=== PATIENT | male | born 1995 | race Caucasian/White ===

== ENCOUNTER 2016-11-26 03:08 | Inpatient (IN) | payer OTHER ==
--- NOTE | 2016-11-26 03:20 | HP ---
COWS - Scale Resting Pulse: 2= [place] 101-120 Sweatin=Flushed/Facial Moisture Restless Observation: 5= Unable to Sit Still Pupil Size: 1= Pupils >than Normal Bone or Joint Aches: 4=Acute Joint/Muscle Pain Runny Nose/ Eye Tearin= Runny Nose/Eyes GI Upset > 30mins: 1= Stomach Cramp Tremor Observation: 2= Slight Tremor Visible Yawning Observation: 1= 1-2x During Session Anxiety or Irritability: 2=Irritable/Anxious Goose Flesh Skin: 0=Smooth Skin COWS Score: 22 CIWA Score - CIWA Score Nausea/Vomitin Muscle Tremors: 2 Anxiety: 4-Mod. Anxious/Guarded Agitation: 4-Moderately Restless Paroxysmal Sweats: 1-Minimal Palms Moist Orientation: 1-Uncertain about Date Tacttile Disturbances: 0-None Auditory Disturbances: 0-None Visual Disturbances: 0-None Headache: 1-Very Mild CIWA-Ar Total Score: 15 Admission ROS BHS - HPI Chief Complaint: C/O OPIOID DEPENDENCE SEEKING DETOX TXMENT. Allergies/Adverse Reactions: Allergies Allergy/AdvReac Type Severity Reaction Status Date / Time No Known Allergies Allergy Verified 11/26/16 03:13 History of Present Illness: 21 Y.O. MALE WITH OPIOID AND BENZO DEPENDENCE ADMITTED FOR DETOX TXMENT. HE IS KNOWN TO [facility]. SELF REFERRED. REPORTS LONGEST CLEAN TIME 3 MONTHS. Exam Limitations: No Limitations - Ebola screening Have you traveled outside of the country in the last 21 days: No Have you had contact with anyone from an Ebola affected area: No Have you been sick,other than usual withdrawal symptoms: No Do you have a fever: No - Review of Systems Constitutional: Chills, Loss of Appetite, Malaise, Night Sweats EENT: reports: Nose Congestion Respiratory: reports: No Symptoms reported Cardiac: reports: No Symptoms Reported GI: reports: Diarrhea, Poor Appetite, Poor Fluid Intake : reports: No Symptoms Reported Musculoskeletal: reports: Back Pain, Joint Pain Integumentary: reports: Other (RESOLVING L EYE ECCHYMOSIS) Neuro: reports: No Symptoms reported Endocrine: reports: No Symptoms Reported Hematology: reports: No Symptoms Reported Psychiatric: reports: Anxious, Depressed Other Systems: Reviewed and Negative Patient History - Patient Medical History Hx Anemia: No Hx Asthma: No (CYSTIC FIBROSIS) Hx Chronic Obstructive Pulmonary Disease (COPD): No Hx Cancer: No Hx Cardiac Disorders: No Hx Congestive Heart Failure: No Hx Hypertension: No Hx Hypercholesterolemia: No Hx Pacemaker: No HX Cerebrovascular Accident: No Hx Seizures: No Hx Dementia: No Hx Diabetes: No Hx Gastrointestinal Disorders: Yes (acid reflux) Hx Genitourinary Disorders: No Hx Sexually Transmitted Disorders: No Hx Renal Disease (ESRD): No Hx Thyroid Disease: No Hx Human Immunodeficiency Virus (HIV): No Hx Hepatitis C: No Hx Depression: Yes (AND ANXIETY) Hx Suicide Attempt: No Hx Bipolar Disorder: No Hx Schizophrenia: No Other Medical History: DENIES - Patient Surgical History Past Surgical History: Yes Hx Neurologic Surgery: No Hx Cataract Extraction: No Hx Cardiac Surgery: No Hx Lung Surgery: Yes (left pneumothorax at age 17) Hx Breast Surgery: No Hx Breast Biopsy: No Hx Abdominal Surgery: Yes (HERNIA REPAIR) Hx Appendectomy: No Hx Cholecystectomy: No Hx Genitourinary Surgery: No Hx Section: No Hx Orthopedic Surgery: No Anesthesia Reaction: No - PPD History Previous Implant?: Yes Documented Results: Negative w/proof Implanted On Prior [facility] Admission?: Yes Date: 10/21/15 Results: 0 mm PPD to be Administered?: Yes - Smoking Cessation Smoking history: Never smoked Have you smoked in the past 12 months: No Hx Chewing Tobacco Use: No Initiated information on smoking cessation: No - Substance & Tx. History Hx Alcohol Use: No Hx Substance Use: Yes Substance Use Type: Heroin, Tranquilizers (BZO) Hx Substance Use Treatment: Yes ([facility]) - Substances Abused HEROIN Route: Injection Frequency: Daily Amount used: 20 BAGS Age of first use: 19 Date of Last Use: 11/26/16 KLONOPINS Route: Oral Frequency: Daily Amount used: 4 MG Age of first use: 15 Date of Last Use: 11/26/16 Family Disease History - Family Disease History Family Disease History: [place]: Grandparent (PROSTATE), Mother (alive,BREAST), Other : Sister (cystic fibrosis) Admission Physical Exam [facility] - Physical General Appearance: Yes: Appropriately Dressed, Thin, Anxious HEENTM: Yes: EOMI, Normocephalic, RUT, Pharynx Normal, Rhinorrhea, Other ( RESOLVING ECCHYMOSIS TO R EYE.) Respiratory: Yes: Chest Non-Tender, Lungs Clear, Normal Breath Sounds, No Respiratory Distress, No Accessory Muscle Use Neck: Yes: No masses,lesions,Nodules, Supple, Trachea in good position Breast: Yes: Breast Exam Deferred Cardiology: Yes: Regular Rhythm, S1, S2, Tachycardia Abdominal: Yes: Normal Bowel Sounds, Non Tender, Flat, Soft Genitourinary: Yes: Within Normal Limits Back: Yes: Normal Inspection Musculoskeletal: Yes: full range of Motion, Gait Steady Extremities: Yes: Normal Capillary Refill, Normal Range of Motion, Non-Tender, Tremors Neurological: Yes: software trainer II-XII NML intact, Fully Oriented, Alert, Motor Strength 5/5 Integumentary: Yes: Normal Color, Dry, Warm, Track Hebert Lymphatic: Yes: Within Normal Limits - Diagnostic (1) Sedative, hypnotic or anxiolytic dependence with withdrawal, uncomplicated Current Visit: No Status: Acute (2) Cystic fibrosis Current Visit: No Status: Chronic (3) GERD (gastroesophageal reflux disease) Current Visit: No Status: Chronic (4) Opioid dependence with withdrawal Current Visit: Yes Status: Acute Cleared for Admission S - Detox or Rehab [facility] Level of Care: Medically Managed Detox Regimen/Protocol: Methadone/Valium S Breath Alcohol Content Breath Alcohol Content: 0 Vital Signs - Vital Signs Vital Signs Refused: No Temperature: 97.4 F Temperature Source: Oral Pulse Rate: 106 Respiratory Rate: 18 Blood Pressure: 104/66 BP Location: Left Arm Blood Pressure Position: Sitting - Height Height: 6 ft 1 in - Weight Weight: 61.235 kg Weight Measurement Method: Standing Scale Body Mass Index (BMI): 17.8 Urine Drug Screen - Test Device Lot Number: [id number] Expiration Date: 09/07/18 - Control Is Test Valid: Yes - Results Drug Screen Negative: No Urine Drug Screen Results: OPI-Opiates, BZO-Benzodiazepines, OXY-Oxycodone
[2016-11-26 03:27] VITALS: BMI 17.8
[2016-11-26] MEDS ORDERED: MAGNESIUM HYDROX 2400MG/30ML ORAL SUSPENSION 30 ML CUP PO PRN (03:53)
[2016-11-26] MEDS ORDERED: MENTHOL/PHENOL 1 EACH UD MM PRN (03:53)
[2016-11-26] MEDS ORDERED: guaiFENesin/D-METHORPHAN HB 10 ML UNIT-DOSE CUPS PO PRN (03:53)
[2016-11-26] MEDS ORDERED: MAG HYDROX/AL HYDROX/SIMETH 30 ML UNIT-DOSE CUP PO PRN (03:53)
[2016-11-26] MEDS ORDERED: diazePAM 5 MG TABLET PO ONE (03:53)
[2016-11-26] MEDS ORDERED: MAGNESIUM CITRATE 300 ML BOTTLE PO PRN (03:53)
[2016-11-26] MEDS ORDERED: NICOTINE POLACRILEX 2 MG GUM BC PRN (03:53)
[2016-11-26] MEDS ORDERED: P-EPHED 60MG/TRIPROLIDI 2.5MG TABLET PO PRN (03:53)
[2016-11-26] MEDS ORDERED: ACETAMINOPHEN 325 MG TABLET (FP) PO PRN (03:53)
[2016-11-26] MEDS ORDERED: LOPERAMIDE HCL 2 MG CAPSULE PO PRN (03:53)
[2016-11-26] MEDS ORDERED: METHADONE HCL 10 MG TABLET (FOR DETOX USE ONLY) PO ONE ×3 (03:53→23:00)
[2016-11-26] MEDS ORDERED: diphenhydrAMINE HCL 50 MG CAPSULE PO PRN (03:53)
[2016-11-26] MEDS ORDERED: ALBUTEROL SO4 6.7 GM HFA INHALER IH PRN (03:56)
[2016-11-26] MEDS ORDERED: PATIENT'S OWN MEDICATION (NON-FORMULARY) (Lipase/Protease/Amylase [Creon Dr 24,000 Units C PO SCH (04:00)
[2016-11-26] MEDS: diazePAM 5 MG TABLET PO SCH ×3 (07:27→22:11)
--- NOTE | 2016-11-26 07:42 | CONSULT ---
[facility] Psychiatric Consult - Data Date of interview: 11/26/16 Admission source: [facility] Identifying data: This is 21 yers old male with nop psychiatric hospitalization history intoxicated with Cannabis, Xanax/Klonopin, Heroin and Nicotine Substance Abuse History: - Smoking Cessation. Smoking history: Never smoked. Have you smoked in the past 12 months: No. Hx Chewing Tobacco Use: No. Initiated information on smoking cessation: No. - Substance & Tx. History. Hx Alcohol Use: No. Hx Substance Use: Yes. Substance Use Type: Heroin, Tranquilizers (BZO). Hx Substance Use Treatment: Yes ([facility]). - Substances Abused. HEROIN. Route: Injection. Frequency: Daily. Amount used: 20 BAGS. Age of first use: 19. Date of Last Use: 11/26/16. KLONOPINS. Route : Oral. Frequency: Daily. Amount used: 4 MG. Age of first use: 15. Date of Last Use: 11/26/16 Medical History: Cystic Fibrosis, GERD Psychiatric History: Patient reports history of anxiety, reports no medications taking prior to admission Physical/Sexual Abuse/Trauma History: Denies Additional Comment: Observation. Detox Unit Care [facility] Mental Status Exam - Mental Status Exam Alert and Oriented to: Person Cognitive Function: Fair Patient Appearance: Unkempt Mood: Sad Affect: Flat Patient Behavior: Sedated Speech Pattern: Delayed Voice Loudness: Moderately Soft/Quiet Thought Process: Circumstantial Thought Disorder: Being Controlled Hallucinations: Denies Suicidal Ideation: Denies Homicidal Ideation: Denies Insight/Judgement: Fair Sleep: Difficulty falling asleep Appetite: Weight loss Muscle strength/Tone: Moderate Hypotonicity Gait/Station: Shuffling Additional Comments: Observation. Detox Unit Care [facility] Psychiatric Findings - Problem List ([place] 1, 2,3) (1) Opioid dependence with withdrawal Current Visit: Yes Status: Acute (2) Cannabis dependence Current Visit: No Status: Acute (3) Heroin abuse Current Visit: No Status: Acute (4) Heroin dependence Current Visit: No Status: Acute (5) Sedative, hypnotic or anxiolytic dependence with withdrawal, uncomplicated Current Visit: No Status: Acute (6) Anxiety and depression Current Visit: No Status: Chronic (7) Benzodiazepine dependence Current Visit: No Status: Chronic (8) Cocaine dependence Current Visit: No Status: Chronic Qualifiers: Substance use status: uncomplicated Qualified Code(s): F14.20 - Cocaine dependence, uncomplicated (9) Drug-induced mood disorder Current Visit: No Status: Chronic - Initial Treatment Plan Initial Treatment Plan: Observation. Detox Unit Care [facility]
[2016-11-26 10:11] LABS: MCH 23.3 pg (25.7-33.7); MCHC 31.5 g/dl (32.0-35.9); MEAN CELL VOLUME 73.8 fl (80-96); MEAN PLT VOLUME 11.2 fl (7.5-11.1); PLATELET COUNT 143 K/MM3 (134-434); RDW 16.8 % (11.9-15.9); WHITE BLOOD COUNT 8.8 K/mm3 (4.0-10.0)
[2016-11-26] MEDS: BUDESONIDE/FORMETEROL FUMARATE 80/4.5 mcg INHALER IH SCH ×2 (10:16→23:13)
[2016-11-26] MEDS: PATIENT'S OWN MEDICATION (NON-FORMULARY) (Lipase/Protease/Amylase [Creon Dr 24,000 Units C PO SCH ×3 (10:16→17:28)
[2016-11-26] MEDS: PRENATAL VITAMINS W/ FOLIC ACID TABLET (FP) PO SCH (10:17)
[2016-11-26] MEDS: diazePAM 5 MG TABLET PO PRN ×4 (10:23→23:50)
[2016-11-26 10:39] LABS: ALBUMIN 3.4 g/dl (3.4-5.0); ALK PHOS 82 U/L (45-117); ANION GAP 8 (8-16); BILIRUBIN,TOTAL 0.5 mg/dL (0.2-1.0); CALCIUM 9.4 mg/dL (8.5-10.1); CO2 29 mmol/L (21-32); CREATININE 0.7 mg/dL (0.7-1.3); GLUCOSE,RANDOM 84 mg/dL (74-106); SGOT/AST 24 U/L (15-37); SGPT/ALT 23 U/L (12-78)
[2016-11-26] MEDS ORDERED: LIDOCAINE 5% TOPICAL PATCH TP ONE (10:40)
[2016-11-26 11:00] LABS: HIV 1 & 2 AB NEGATIVE; HIV 1 AGp24 NEGATIVE
--- NOTE | 2016-11-26 11:38 | PN ---
S CIWA - CIWA Score Nausea/Vomitin Muscle Tremors: 3 Anxiety: 3 Agitation: 3 Paroxysmal Sweats: 3 Orientation: 0-Oriented Tacttile Disturbances: 2-Mild Itch/Numbness/Burn Auditory Disturbances: 0-None Visual Disturbances: 0-None Headache: 1-Very Mild CIWA-Ar Total Score: 18 BHS COWS - Scale Resting Pulse: 1= [place] 81-100 Sweatin=Flushed/Facial Moisture Restless Observation: 1= Difficult to Sit Still Pupil Size: 1= Pupils >than Normal Bone or Joint Aches: 2= Severe Diffuse Aches Runny Nose/ Eye Tearin= Nasal Congestion GI Upset > 30mins: 1= Stomach Cramp Tremor Observation of Outstretched Hands: 2= Slight Tremor Visible Yawning Observation: 0= None Anxiety or Irritability: 2=Irritable/Anxious Goose Flesh Skin: 0=Smooth Skin COWS Score: 13 BHS Progress Note (SOAP) Subjective: interrupted sleep, sweats, shakes, , os ecchymosis Objective: 11/26/16 11:35 Vital Signs Temperature 97.9 F 11/26/16 10:00 Pulse Rate 86 11/26/16 10:00 Respiratory Rate 18 11/26/16 10:00 Blood Pressure 109/70 11/26/16 10:00 O2 Sat by Pulse Oximetry (%) Laboratory Tests 11/26/16 11/26/16 11/26/16 07:00 07:00 07:00 WBC 8.8 RBC 5.44 Hgb 12.7 Hct 40.2 MCV 73.8 L MCHC 31.5 L RDW 16.8 H D Plt Count 143 MPV 11.2 H Sodium 141 Potassium 3.9 Chloride 104 Carbon Dioxide 29 Anion Gap 8 BUN 12 Creatinine 0.7 D Creat Clearance w eGFR > 60 Random Glucose 84 Calcium 9.4 Total Bilirubin 0.5 AST 24 ALT 23 D Alkaline Phosphatase 82 Total Protein 8.0 Albumin 3.4 RPR Titer Nonreactive HIV 1&2 Antibody Screen HIV P24 Antigen 11/26/16 07:00 WBC RBC Hgb Hct MCV MCHC RDW Plt Count MPV Sodium Potassium Chloride Carbon Dioxide Anion Gap BUN Creatinine Creat Clearance w eGFR Random Glucose Calcium Total Bilirubin AST ALT Alkaline Phosphatase Total Protein Albumin RPR Titer HIV 1&2 Antibody Screen Negative HIV P24 Antigen Negative pt aox3 irritable ambulating rt forearm redness and warmth at site of iv injection 11/26/16 11:37 Assessment: 11/26/16 11:36 withdrawal sx;s 'lbp cystic fibrosis rt forearm cellulitis 11/26/16 11:37 Plan: cont. detox increase fluids lidocaine patch augmentin 875mg bid
[2016-11-26] MEDS ORDERED: AMOX TR/POT CLAV 875MG/125MG TABLETS (FP) PO ONE (12:13)
--- NOTE | 2016-11-26 14:23 | EKG ---
Test Reason : Blood Pressure : / mmHG Vent. Rate : 088 BPM Atrial Rate : 088 BPM P-R Int : 122 ms QRS Dur : 090 ms QT Int : 366 ms P-R-T Axes : 021 046 053 degrees QTc Int : 442 ms NORMAL SINUS RHYTHM WITH SINUS ARRHYTHMIA NORMAL ECG NO PREVIOUS ECGS AVAILABLE Confirmed by GT MARTINES MD ([id number]) on 11/26/2016 2:22:50 PM Referred By: Confirmed By:GT MARTINES MD
[2016-11-26] MEDS: AMOX TR/POT CLAV 875MG/125MG TABLETS (FP) PO SCH (17:26)
[2016-11-26] MEDS: [UNRECOGNIZED DRUG - OTHER] PO PRN ×2 (17:27→18:13)
[2016-11-26] MEDS: IBUPROFEN 400 MG TABLET (FP) PO PRN (19:59)
[2016-11-26] MEDS ORDERED: LIDOCAINE PATCH REMOVAL MC SCH (22:00)
[2016-11-26] MEDS: THIAMINE HCL 100 MG TABLET (FP) PO SCH (22:11)
[2016-11-26] MEDS: LIDOCAINE PATCH REMOVAL MC SCH (23:13)
[2016-11-27] MEDS: hydrOXYzine PAMOATE 50 MG CAPSULE (FP) PO PRN (00:26)
[2016-11-27] MEDS: CYCLOBENZAPRINE HCL 10 MG TABLET (FP) PO PRN ×2 (00:56→22:08)
[2016-11-27] MEDS: diazePAM 5 MG TABLET PO PRN (03:55)
[2016-11-27] MEDS: diazePAM 5 MG TABLET PO SCH ×3 (06:32→22:08)
--- NOTE | 2016-11-27 08:32 | PN ---
Psychiatric Progress Note Vital Signs: Vital Signs Period Temp Pulse Resp BP Sys/Lugo Pulse Ox Last 24 Hr 96.4 F-98.2 F 60-120 16-20 105-121/61-72 Date of Session: 11/27/16 Chief Complaint:: My medications, insomnia HPI: Patient reprots taking prior to admission: Trazodone 100mg po bid. Gabapentin 600mg po tid. Reports severe insomnia and asking for medications aid. Current Medications: Active Medications Generic Name Dose Route Start Last Admin Trade Name Freq PRN Reason Stop Dose Admin Acetaminophen 650 mg 11/26/16 03:53 11/26/16 04:53 Tylenol - PO 650 mg Q4H PRN Administration FEVER OR PAIN Al Hydroxide/Mg Hydroxide 30 ml 11/26/16 03:53 Mylanta Oral Suspension - PO Q6H PRN DYSPEPSIA Albuterol Sulfate 2 puff 11/26/16 03:56 Ventolin Hfa Inhaler - IH Q4H PRN ASTHMA Amoxicillin/Clavulanate Potassium 1 tab 11/26/16 17:30 11/26/16 17:26 Augmentin - 875mg Tablet PO 1 tab BID@0800,1730 JOSE ARMANDO Administration Budesonide/Formoterol Fumarate 2 puff 11/26/16 10:00 11/26/16 23:13 Symbicort 80/4.5mcg - IH Not Given BID JOSE ARMANDO Cyclobenzaprine HCl 10 mg 11/27/16 00:39 11/27/16 00:56 Flexeril - PO 10 mg TID PRN Administration MUSCLE SPASMS Diazepam 10 mg 11/26/16 03:53 11/27/16 03:55 Valium - PO 11/29/16 03:54 10 mg Q4H PRN Administration WITHDRAWAL(CONT SUBST) Diazepam 5 mg 11/26/16 06:00 11/27/16 06:32 Valium - PO 11/27/16 22:01 5 mg TID JOSE ARMANDO Administration Diazepam 5 mg 11/28/16 10:00 Valium - PO 11/29/16 22:01 BID JOSE ARMANDO Diazepam 5 mg 11/30/16 10:00 Valium - PO 11/30/16 10:01 DAILY JOSE ARMANDO Diphenhydramine HCl 50 mg 11/26/16 03:53 11/26/16 22:12 Benadryl - PO 50 mg HSMR1 PRN Administration INSOMNIA Eucalyptus/Menthol/Phenol/Sorbitol 1 each 11/26/16 03:53 Cepastat Lozenge - MM Q4H PRN SORE THROAT Gabapentin 600 mg 11/27/16 14:00 Neurontin - PO TID [facility] Guaifenesin 10 ml 11/26/16 03:53 Robitussin Dm - PO Q6H PRN COUGH Hydroxyzine Pamoate 50 mg 11/26/16 03:53 11/27/16 00:26 Vistaril - PO 50 mg Q4H PRN Administration AGITATION Ibuprofen 400 mg 11/26/16 03:53 11/26/16 19:59 Motrin - PO 400 mg Q6H PRN Administration SEVERE PAIN Lidocaine 1 patch 11/27/16 10:00 Lidoderm Patch - TP DAILY [facility] Loperamide HCl 4 mg 11/26/16 03:53 Imodium - PO Q6H PRN DIARRHEA Magnesium Citrate 300 ml 11/26/16 03:53 Citroma - PO Q48H PRN CONSTIPATION Magnesium Hydroxide 30 ml 11/26/16 03:53 Milk Of Magnesia - PO DAILY PRN CONSTIPATION Methadone HCl 20 mg 11/27/16 10:00 Dolophine - PO 11/27/16 10:01 DAILY [facility] Methadone HCl 10 mg 11/30/16 10:00 Dolophine - PO 11/30/16 10:01 DAILY [facility] Methadone HCl 15 mg 11/28/16 10:00 Dolophine - PO 11/29/16 10:01 DAILY [facility] Methadone HCl 5 mg 12/01/16 06:00 Dolophine - PO 12/01/16 06:01 DAILY@0600 [facility] Miscellaneous 1 each 11/26/16 22:00 11/26/16 23:13 Lidoderm Patch Removal MC Not Given DAILY@2200 [facility] Nicotine Polacrilex 2 mg 11/26/16 03:53 Nicorette Gum - BC Q2H PRN NICOTINE REPLACEMENT RX Non-Formulary Medication 10 cap 11/26/16 08:48 11/26/16 17:28 Lipase/Protease/Amylase [Arti Hawkins 24,000 Units Capsule] PO Not Given TIDAC [facility] Patient's Own Med: 6 each 11/26/16 09:38 11/26/16 18:13 Creon 17736 Fdc PO 6 each Units TID PRN Administration WITH SNACKS Multivit/Folic Acid/Iron 1 tab 11/26/16 10:00 11/26/16 10:17 Vitamins (Sjr) - PO 1 tab DAILY JOSE ARMANDO Administration Pseudoephedrine/Triprolidine 1 combo 11/26/16 03:53 Actifed - PO TID PRN NASAL CONGESTION Thiamine HCl 100 mg 11/26/16 22:00 11/26/16 22:11 Vitamin B1 - PO 100 mg HS JOSE ARMANDO Administration Trazodone HCl 100 mg 11/27/16 10:00 Desyrel - PO BID [facility] Mental Status Exam - Mental Status Exam Alert and Oriented to: Person Cognitive Function: Fair Patient Appearance: Unkempt Mood: Anxious, Irritable Affect: Mood Congruent Patient Behavior: Guarded, Cooperative Speech Pattern: Excessive Voice Loudness: Mildly Loud Thought Process: Circumstantial, Goal Oriented Thought Disorder: Being Controlled Hallucinations: Denies Suicidal Ideation: Denies Homicidal Ideation: Denies Insight/Judgement: Fair Sleep: Difficulty falling asleep Appetite: Weight loss Muscle strength/Tone: Mild Hypertonicity Gait/Station: Normal Additional Comments: Trazodone 100mg po bid. Gabapentin 600mg po tid Psychiatric Treatment Plan - Problem List (1) Opioid dependence with withdrawal Current Visit: Yes (2) Cannabis dependence Current Visit: No (3) Heroin abuse Current Visit: No (4) Heroin dependence Current Visit: No (5) Sedative, hypnotic or anxiolytic dependence with withdrawal, uncomplicated Current Visit: No (6) Anxiety and depression Current Visit: No (7) Benzodiazepine dependence Current Visit: No (8) Cocaine dependence Current Visit: No Qualifiers: Substance use status: uncomplicated Qualified Code(s): F14.20 - Cocaine dependence, uncomplicated (9) Drug-induced mood disorder Current Visit: No Initial treatment plan: Trazodone 100mg po bid. Gabapentin 600mg po tid
[2016-11-27] MEDS: PATIENT'S OWN MEDICATION (NON-FORMULARY) (Lipase/Protease/Amylase [Creon Dr 24,000 Units C PO SCH ×3 (09:13→22:10)
[2016-11-27] MEDS: AMOX TR/POT CLAV 875MG/125MG TABLETS (FP) PO SCH ×2 (09:13→22:07)
--- NOTE | 2016-11-27 09:59 | PN ---
S CIWA - CIWA Score Nausea/Vomitin Muscle Tremors: 3 Anxiety: 3 Agitation: 3 Paroxysmal Sweats: 3 Orientation: 0-Oriented Tacttile Disturbances: 2-Mild Itch/Numbness/Burn Auditory Disturbances: 0-None Visual Disturbances: 0-None Headache: 0-None Present CIWA-Ar Total Score: 17 BHS COWS - Scale Resting Pulse: 0= [place] 80 or Below Sweatin=Flushed/Facial Moisture Restless Observation: 1= Difficult to Sit Still Pupil Size: 1= Pupils >than Normal Bone or Joint Aches: 2= Severe Diffuse Aches Runny Nose/ Eye Tearin= Nasal Congestion GI Upset > 30mins: 2= Nausea/Diarrhea Tremor Observation of Outstretched Hands: 2= Slight Tremor Visible Yawning Observation: 0= None Anxiety or Irritability: 2=Irritable/Anxious Goose Flesh Skin: 0=Smooth Skin COWS Score: 13 BHS Progress Note (SOAP) Subjective: interrupted sleep, sweats, chills, lbp Objective: 11/27/16 09:58 Vital Signs Temp 97.9 F 11/27/16 09:35 Pulse 89 11/27/16 09:35 Resp 16 11/27/16 09:35 BP 118/78 11/27/16 09:35 Pulse Ox Intake & Output 11/26/16 11/26/16 11/27/16 11:59 23:59 11:59 Weight 135 lb Other: Voiding Method Toilet Height 6 ft 1 in Body Mass Index (BMI) 17.8 Weight Measurement Method Standing Scale Laboratory Tests 11/26/16 11/26/16 11/26/16 07:00 07:00 07:00 WBC 8.8 RBC 5.44 Hgb 12.7 Hct 40.2 MCV 73.8 L MCHC 31.5 L RDW 16.8 H D Plt Count 143 MPV 11.2 H Sodium 141 Potassium 3.9 Chloride 104 Carbon Dioxide 29 Anion Gap 8 BUN 12 Creatinine 0.7 D Creat Clearance w eGFR > 60 Random Glucose 84 Calcium 9.4 Total Bilirubin 0.5 AST 24 ALT 23 D Alkaline Phosphatase 82 Total Protein 8.0 Albumin 3.4 RPR Titer Hepatitis C Antibody <0.1 HIV 1&2 Antibody Screen HIV P24 Antigen 11/26/16 11/26/16 07:00 07:00 WBC RBC Hgb Hct MCV MCHC RDW Plt Count MPV Sodium Potassium Chloride Carbon Dioxide Anion Gap BUN Creatinine Creat Clearance w eGFR Random Glucose Calcium Total Bilirubin AST ALT Alkaline Phosphatase Total Protein Albumin RPR Titer Nonreactive Hepatitis C Antibody HIV 1&2 Antibody Screen Negative HIV P24 Antigen Negative pt aox3 , in nad ambulating Assessment: 11/27/16 09:59 withdrawal sx's cystic fibrosis Plan: cont. detox increase fluids cont creon
[2016-11-27] MEDS ORDERED: GABAPENTIN 400 MG CAPSULE (FP) PO SCH (10:00)
[2016-11-27] MEDS ORDERED: METHADONE HCL 10 MG TABLET (FOR DETOX USE ONLY) PO SCH (10:00)
[2016-11-27] MEDS: traZODone HCL 100 MG TABLET (FP) PO SCH ×2 (10:06→22:07)
[2016-11-27] MEDS: LIDOCAINE 5% TOPICAL PATCH TP SCH (10:06)
[2016-11-27] MEDS: PRENATAL VITAMINS W/ FOLIC ACID TABLET (FP) PO SCH (10:06)
[2016-11-27] MEDS: BUDESONIDE/FORMETEROL FUMARATE 80/4.5 mcg INHALER IH SCH ×2 (10:07→22:08)
[2016-11-27] MEDS: GABAPENTIN 300 MG CAPSULE (FP) PO SCH ×2 (14:23→22:08)
[2016-11-27] MEDS: THIAMINE HCL 100 MG TABLET (FP) PO SCH (22:08)
[2016-11-27] MEDS: LIDOCAINE PATCH REMOVAL MC SCH (22:08)
[2016-11-28] MEDS: AMOX TR/POT CLAV 875MG/125MG TABLETS (FP) PO SCH ×2 (07:03→17:58)
[2016-11-28] MEDS: GABAPENTIN 300 MG CAPSULE (FP) PO SCH ×3 (07:03→22:20)
[2016-11-28] MEDS: PATIENT'S OWN MEDICATION (NON-FORMULARY) (Lipase/Protease/Amylase [Creon Dr 24,000 Units C PO SCH ×3 (07:05→16:50)
[2016-11-28] MEDS: traZODone HCL 100 MG TABLET (FP) PO SCH ×2 (11:28→22:20)
[2016-11-28] MEDS: PRENATAL VITAMINS W/ FOLIC ACID TABLET (FP) PO SCH (11:30)
[2016-11-28] MEDS: BUDESONIDE/FORMETEROL FUMARATE 80/4.5 mcg INHALER IH SCH ×2 (11:31→22:19)
[2016-11-28] MEDS: METHADONE HCL 5 MG TABLET (FOR DETOX USE ONLY) PO SCH (11:31)
[2016-11-28] MEDS: LIDOCAINE 5% TOPICAL PATCH TP SCH ×2 (11:31→15:52)
[2016-11-28] MEDS: diazePAM 5 MG TABLET PO SCH ×2 (11:31→22:20)
--- NOTE | 2016-11-28 12:28 | PN ---
BHS Progress Note (SOAP) Subjective: sweats, low energy but better than yesterday Objective: 11/28/16 12:26 Vital Signs Temperature 98.2 F 11/28/16 06:52 Pulse Rate 82 11/28/16 06:52 Respiratory Rate 16 11/28/16 06:52 Blood Pressure 108/65 11/28/16 06:52 O2 Sat by Pulse Oximetry (%) Laboratory Tests 11/26/16 11/26/16 11/26/16 07:00 07:00 07:00 WBC 8.8 RBC 5.44 Hgb 12.7 Hct 40.2 MCV 73.8 L MCHC 31.5 L RDW 16.8 H D Plt Count 143 MPV 11.2 H Sodium 141 Potassium 3.9 Chloride 104 Carbon Dioxide 29 Anion Gap 8 BUN 12 Creatinine 0.7 D Creat Clearance w eGFR > 60 Random Glucose 84 Calcium 9.4 Total Bilirubin 0.5 AST 24 ALT 23 D Alkaline Phosphatase 82 Total Protein 8.0 Albumin 3.4 RPR Titer Hepatitis C Antibody <0.1 HIV 1&2 Antibody Screen HIV P24 Antigen 11/26/16 11/26/16 07:00 07:00 WBC RBC Hgb Hct MCV MCHC RDW Plt Count MPV Sodium Potassium Chloride Carbon Dioxide Anion Gap BUN Creatinine Creat Clearance w eGFR Random Glucose Calcium Total Bilirubin AST ALT Alkaline Phosphatase Total Protein Albumin RPR Titer Nonreactive Hepatitis C Antibody HIV 1&2 Antibody Screen Negative HIV P24 Antigen Negative pt aox3 in nad ambulating Assessment: 11/28/16 12:27 withdrawal sx's cystic fibrosis Plan: cont. detox increase fluids
[2016-11-28] MEDS: diazePAM 5 MG TABLET PO PRN ×2 (13:35→17:59)
[2016-11-28] MEDS: THIAMINE HCL 100 MG TABLET (FP) PO SCH (22:19)
[2016-11-28] MEDS: CYCLOBENZAPRINE HCL 10 MG TABLET (FP) PO PRN (22:19)
[2016-11-28] MEDS: LIDOCAINE PATCH REMOVAL MC SCH (22:20)
[2016-11-28 23:22] LABS: URINE APPEARANCE SLCLOUDY; URINE BILIRUBIN NEGATIVE (NEGATIVE); URINE BLOOD NEGATIVE (NEGATIVE); URINE COLOR AMBER; URINE GLUCOSE (UA) NEGATIVE (NEGATIVE); URINE KETONE TRACE (NEGATIVE); URINE LEUK ESTERASE NEGATIVE (NEGATIVE); URINE NITRITE NEGATIVE (NEGATIVE); URINE UROBILINOGEN NEGATIVE E.U./dl (0.2-1.0)
[2016-11-28 23:27] LABS: URINE PROTEIN 1+ (NEGATIVE)
[2016-11-28 23:55] LABS: URINE MUCUS MANY; URINE RBC 1 /hpf (0-3); URINE WBC 7 /hpf (3-5)
[2016-11-29] MEDS: GABAPENTIN 300 MG CAPSULE (FP) PO SCH ×3 (08:15→22:15)
--- NOTE | 2016-11-29 09:29 | PN ---
BHS Progress Note (SOAP) Subjective: feeling better but has chills and cold sweats Objective: 11/29/16 09:28 Vital Signs Temperature 97.3 F L 11/29/16 07:45 Pulse Rate 75 11/29/16 07:45 Respiratory Rate 18 11/29/16 07:45 Blood Pressure 97/67 11/28/16 22:45 O2 Sat by Pulse Oximetry (%) Laboratory Tests 11/26/16 11/26/16 11/26/16 07:00 07:00 07:00 WBC 8.8 RBC 5.44 Hgb 12.7 Hct 40.2 MCV 73.8 L MCHC 31.5 L RDW 16.8 H D Plt Count 143 MPV 11.2 H Sodium 141 Potassium 3.9 Chloride 104 Carbon Dioxide 29 Anion Gap 8 BUN 12 Creatinine 0.7 D Creat Clearance w eGFR > 60 Random Glucose 84 Calcium 9.4 Total Bilirubin 0.5 AST 24 ALT 23 D Alkaline Phosphatase 82 Total Protein 8.0 Albumin 3.4 Urine Color Urine Appearance Urine pH Urine Protein Urine Glucose (UA) Urine Ketones Urine Blood Urine Nitrite Urine Bilirubin Urine Urobilinogen Ur Leukocyte Esterase Urine RBC Urine WBC Urine Mucus RPR Titer Hepatitis C Antibody <0.1 HIV 1&2 Antibody Screen HIV P24 Antigen 11/26/16 11/26/16 11/28/16 07:00 07:00 23:10 WBC RBC Hgb Hct MCV MCHC RDW Plt Count MPV Sodium Potassium Chloride Carbon Dioxide Anion Gap BUN Creatinine Creat Clearance w eGFR Random Glucose Calcium Total Bilirubin AST ALT Alkaline Phosphatase Total Protein Albumin Urine Color Renuka Urine Appearance Slcloudy Urine pH 5.0 Urine Protein 1+ H Urine Glucose (UA) Negative Urine Ketones Trace H Urine Blood Negative Urine Nitrite Negative Urine Bilirubin Negative Urine Urobilinogen Negative Ur Leukocyte Esterase Negative Urine RBC 1 Urine WBC 7 Urine Mucus Many RPR Titer Nonreactive Hepatitis C Antibody HIV 1&2 Antibody Screen Negative HIV P24 Antigen Negative pt aox3 in nad ambulating Plan: withdrawal sx;s cont. detox increase fluids d/c in am
[2016-11-29] MEDS: PATIENT'S OWN MEDICATION (NON-FORMULARY) (Lipase/Protease/Amylase [Creon Dr 24,000 Units C PO SCH ×3 (09:30→16:47)
[2016-11-29] MEDS: METHADONE HCL 5 MG TABLET (FOR DETOX USE ONLY) PO SCH (10:04)
[2016-11-29] MEDS: diazePAM 5 MG TABLET PO SCH ×2 (10:04→22:15)
[2016-11-29] MEDS: PRENATAL VITAMINS W/ FOLIC ACID TABLET (FP) PO SCH (10:04)
[2016-11-29] MEDS: AMOX TR/POT CLAV 875MG/125MG TABLETS (FP) PO SCH ×2 (10:05→16:48)
[2016-11-29] MEDS: BUDESONIDE/FORMETEROL FUMARATE 80/4.5 mcg INHALER IH SCH ×2 (10:05→22:16)
[2016-11-29] MEDS: LIDOCAINE 5% TOPICAL PATCH TP SCH (12:02)
[2016-11-29] MEDS: IBUPROFEN 400 MG TABLET (FP) PO PRN (14:59)
[2016-11-29] MEDS: hydrOXYzine PAMOATE 50 MG CAPSULE (FP) PO PRN (16:48)
[2016-11-29] MEDS: THIAMINE HCL 100 MG TABLET (FP) PO SCH (22:15)
[2016-11-29] MEDS: traZODone HCL 100 MG TABLET (FP) PO SCH (22:15)
[2016-11-29] MEDS: CYCLOBENZAPRINE HCL 10 MG TABLET (FP) PO PRN (22:15)
[2016-11-29] MEDS: LIDOCAINE PATCH REMOVAL MC SCH (22:17)
[2016-11-30] MEDS: AMOX TR/POT CLAV 875MG/125MG TABLETS (FP) PO SCH ×2 (08:30→17:24)
[2016-11-30] MEDS ORDERED: diazePAM 5 MG TABLET PO SCH (10:00)
[2016-11-30] MEDS ORDERED: METHADONE HCL 10 MG TABLET (FOR DETOX USE ONLY) PO SCH (10:00)
[2016-11-30] MEDS: PRENATAL VITAMINS W/ FOLIC ACID TABLET (FP) PO SCH (10:20)
[2016-11-30] MEDS: LIDOCAINE 5% TOPICAL PATCH TP SCH (10:21)
[2016-11-30] MEDS: PATIENT'S OWN MEDICATION (NON-FORMULARY) (Lipase/Protease/Amylase [Creon Dr 24,000 Units C PO SCH ×2 (10:22→17:25)
[2016-11-30] MEDS: BUDESONIDE/FORMETEROL FUMARATE 80/4.5 mcg INHALER IH SCH ×2 (10:23→21:49)
[2016-11-30] MEDS: GABAPENTIN 300 MG CAPSULE (FP) PO SCH ×2 (14:58→21:46)
--- NOTE | 2016-11-30 15:23 | PN ---
BHS Progress Note (SOAP) Subjective: Sweating,interrupted sleep,restless Objective: 11/30/16 15:21 Vital Signs - 8 hr 11/30/16 11/30/16 10:00 14:41 Temperature 97.6 F 97.0 F L Pulse Rate 95 H 105 H Respiratory 20 20 Rate Blood Pressure 94/54 119/72 Laboratory Last Values WBC 8.8 K/mm3 (4.0-10.0) 11/26/16 07:00 RBC 5.44 M/mm3 (4.00-5.60) 11/26/16 07:00 Hgb 12.7 GM/dL (11.7-16.9) 11/26/16 07:00 Hct 40.2 % (35.4-49) 11/26/16 07:00 MCV 73.8 fl (80-96) L 11/26/16 07:00 MCHC 31.5 g/dl (32.0-35.9) L 11/26/16 07:00 RDW 16.8 % (11.9-15.9) H D 11/26/16 07:00 Plt Count 143 K/MM3 (134-434) 11/26/16 07:00 MPV 11.2 fl (7.5-11.1) H 11/26/16 07:00 Sodium 141 mmol/L (136-145) 11/26/16 07:00 Potassium 3.9 mmol/L (3.5-5.1) 11/26/16 07:00 Chloride 104 mmol/L (98-107) 11/26/16 07:00 Carbon Dioxide 29 mmol/L (21-32) 11/26/16 07:00 Anion Gap 8 (8-16) 11/26/16 07:00 BUN 12 mg/dL (7-18) 11/26/16 07:00 Creatinine 0.7 mg/dL (0.7-1.3) D 11/26/16 07:00 Creat Clearance w eGFR > 60 (>60) 11/26/16 07:00 Random Glucose 84 mg/dL (74-106) 11/26/16 07:00 Calcium 9.4 mg/dL (8.5-10.1) 11/26/16 07:00 Total Bilirubin 0.5 mg/dL (0.2-1.0) 11/26/16 07:00 AST 24 U/L (15-37) 11/26/16 07:00 ALT 23 U/L (12-78) D 11/26/16 07:00 Alkaline Phosphatase 82 U/L (45-117) 11/26/16 07:00 Total Protein 8.0 g/dl (6.4-8.2) 11/26/16 07:00 Albumin 3.4 g/dl (3.4-5.0) 11/26/16 07:00 Urine Color Renuka 11/28/16 23:10 Urine Appearance Slcloudy 11/28/16 23:10 Urine pH 5.0 (5.0-8.0) 11/28/16 23:10 Ur Specific Dewar 1.025 (1.005-1.025) 11/28/16 23:10 Urine Protein 1+ (NEGATIVE) H 11/28/16 23:10 Urine Glucose (UA) Negative (NEGATIVE) 11/28/16 23:10 Urine Ketones Trace (NEGATIVE) H 11/28/16 23:10 Urine Blood Negative (NEGATIVE) 11/28/16 23:10 Urine Nitrite Negative (NEGATIVE) 11/28/16 23:10 Urine Bilirubin Negative (NEGATIVE) 11/28/16 23:10 Urine Urobilinogen Negative E.U./dl (0.2-1.0) 11/28/16 23:10 Ur Leukocyte Esterase Negative (NEGATIVE) 11/28/16 23:10 Urine RBC 1 /hpf (0-3) 11/28/16 23:10 Urine WBC 7 /hpf (3-5) 11/28/16 23:10 Urine Mucus Many 11/28/16 23:10 RPR Titer Nonreactive (NONREACTIVE) 11/26/16 07:00 Hepatitis C Antibody <0.1 s/co ratio (0.0-0.9) 11/26/16 07:00 HIV 1&2 Antibody Screen Negative 11/26/16 07:00 HIV P24 Antigen Negative 11/26/16 07:00 labs noted Assessment: 11/30/16 15:22 Withdrawal sx. Plan: Continue detox
[2016-11-30] MEDS: hydrOXYzine PAMOATE 50 MG CAPSULE (FP) PO PRN (17:25)
[2016-11-30] MEDS: THIAMINE HCL 100 MG TABLET (FP) PO SCH (21:46)
[2016-11-30] MEDS: CYCLOBENZAPRINE HCL 10 MG TABLET (FP) PO PRN (21:46)
[2016-11-30] MEDS: traZODone HCL 100 MG TABLET (FP) PO SCH (21:46)
[2016-11-30] MEDS: [UNRECOGNIZED DRUG - OTHER] PO PRN (21:48)
[2016-11-30] MEDS: LIDOCAINE PATCH REMOVAL MC SCH (21:49)
[2016-12-01] MEDS: GABAPENTIN 300 MG CAPSULE (FP) PO SCH (05:08)
[2016-12-01] MEDS ORDERED: METHADONE HCL 5 MG TABLET (FOR DETOX USE ONLY) PO SCH (06:00)
[2016-12-01 06:09] VITALS: BP 94/50; PULSE 72; TEMP 97.9
--- NOTE | 2016-12-01 08:07 | DS ---
[facility] Detox Discharge Summary Admission Date: 11/26/16 Discharge Date: 12/01/16 - History Present History: Opioid Dependence, Sedative Dependence Additional Comments: FOLLOW UP WITH AFTER [facility] PROGRAM ARRANGEMENT AND PMD FOR MEDICAL PROBLEM Pertinent Past History: CYSTIC FIBROSIS GERD - Physical Exam Results Vital Signs: Vital Signs Temperature 97.9 F 12/01/16 06:08 Pulse Rate 72 12/01/16 06:08 Respiratory Rate 18 12/01/16 06:08 Blood Pressure 94/50 12/01/16 06:08 O2 Sat by Pulse Oximetry (%) Pertinent Admission Physical Exam Findings: WITHDRAWAL SYMPTOM - Treatment Hospital Course: Detox Protocol Followed, Detoxed Safely, Responded well, Discharged Condition Good, Rehab Referral Accepted Patient has Accepted a Rehab Referral to: [facility] - Medication Discharge Medications: Ambulatory Orders Albuterol Sulfate Inhaler - [Ventolin HFA Inhaler -] 2 inh PO Q4H PRN #1 inhaler 04/11/16 Lipase/Protease/Amylase [Arti Hawkins 24,000 Units Capsule] 10 cap PO TID #120 capsule. 04/11/16 Cephalexin [Cephalexin] 1 cap PO BID 11/26/16 Clonazepam [Clonazepam] 1 tab PO BID PRN 11/26/16 Fluticasone/Salmeterol [Advair Hfa 115-21 Mcg Inhaler] 2 puff IH BID 11/26/16 Gabapentin [Gabapentin] 2 cap PO TID 11/26/16 Lipase/Protease/Amylase [Arti Hawkins 24,000 Units Capsule] 10 cap PO AC 11/26/16 Gabapentin [Neurontin -] 600 mg PO TID #90 cap 11/27/16 Trazodone HCl [Desyrel -] 100 mg PO BID #60 tablet 11/27/16 - Diagnosis (1) Opioid dependence with withdrawal Current Visit: Yes Status: Acute (2) Sedative, hypnotic or anxiolytic dependence with withdrawal, uncomplicated Current Visit: No Status: Acute (3) Cystic fibrosis Current Visit: No Status: Chronic (4) GERD (gastroesophageal reflux disease) Current Visit: No Status: Chronic (5) Cannabis dependence Current Visit: No Status: Acute (6) Drug-induced mood disorder Current Visit: No Status: Chronic - AMA Did Patient Leave Against Medical Advice: No
[2016-12-01] MEDS: AMOX TR/POT CLAV 875MG/125MG TABLETS (FP) PO SCH (08:10)
[2016-12-01] MEDS: PRENATAL VITAMINS W/ FOLIC ACID TABLET (FP) PO SCH (09:26)
[2016-12-01] MEDS: LIDOCAINE 5% TOPICAL PATCH TP SCH (09:26)
[2016-12-01] MEDS: BUDESONIDE/FORMETEROL FUMARATE 80/4.5 mcg INHALER IH SCH (09:26)
== END 2016-12-01 09:45 | disposition home or self-care (01) | DRG 773 ==
LOC: YASAS 03:08 → Y6N 03:33
PROVIDERS: ADMIT Internal Medicine; ATTEND Internal Medicine
PROC: HZ2ZZZZ Detoxification Services for Substance Abuse Treatment (ICD-10-PCS; principal; 2016-12-01)
DX: F11.23 Opioid dependence with withdrawal (principal); F13.230 Sedative, hypnotic or anxiolytic dependence with withdrawal, uncomplicated; F14.20 Cocaine dependence, uncomplicated; F12.20 Cannabis dependence, uncomplicated; F41.8 Other specified anxiety disorders; F19.24 Other psychoactive substance dependence with psychoactive substance-induced mood disorder; K21.9 Gastro-esophageal reflux disease without esophagitis
CPT/HCPCS: 36415; 80053; 81003; 81015; 85027; 86593; 86803; 87389; 93005; 93010

== ENCOUNTER 2017-04-18 16:41 | Inpatient (IN) | payer OTHER ==
[2017-04-18 17:59] VITALS: BMI 18.4
--- NOTE | 2017-04-18 20:21 | HP ---
COWS - Scale Resting Pulse: 2= [place] 101-120 Sweatin= Chills/Flushing Restless Observation: 1= Difficult to Sit Still Pupil Size: 0= Normal to Room Light Bone or Joint Aches: 2= Severe Diffuse Aches Runny Nose/ Eye Tearin= Runny Nose/Eyes GI Upset > 30mins: 2= Nausea/Diarrhea Tremor Observation: 2= Slight Tremor Visible Yawning Observation: 0= None Anxiety or Irritability: 2=Irritable/Anxious Goose Flesh Skin: 0=Smooth Skin COWS Score: 14 Admission [facility] Chief Complaint: WITHDRAWAL SX Allergies/Adverse Reactions: Allergies Allergy/AdvReac Type Severity Reaction Status Date / Time No Known Allergies Allergy Verified 04/18/17 19:22 History of Present Illness: 21 YEARS OLD MALE WITH LONG HISTORY OF HEROIN COCAINE DEPENDENCE HAS CHRONIC PANCREATITIS AND CYSTIC FIBROSIS AND DEPRESSION IS ADMITTED TO DETOX Exam Limitations: No Limitations - Ebola screening Have you traveled outside of the country in the last 21 days: No Have you had contact with anyone from an Ebola affected area: No Have you been sick,other than usual withdrawal symptoms: Yes Do you have a fever: No - Review of Systems Constitutional: Changes in sleep, Weight Stable EENT: reports: No Symptoms Reported Respiratory: reports: No Symptoms reported Cardiac: reports: No Symptoms Reported GI: reports: Nausea, Poor Appetite, Poor Fluid Intake, Abdominal cramping : reports: No Symptoms Reported Musculoskeletal: reports: Back Pain, Joint Pain, Muscle Pain, Neck Pain Integumentary: reports: Change in Color (HANDS) Neuro: reports: Tremors Endocrine: reports: No Symptoms Reported Hematology: reports: No Symptoms Reported Psychiatric: reports: Judgement Intact, Orientated x3, Depressed Other Systems: Reviewed and Negative Patient History - Patient Medical History Hx Anemia: No Hx Asthma: No (CYSTIC FIBROSIS) Hx Chronic Obstructive Pulmonary Disease (COPD): No Hx Cancer: No Hx Cardiac Disorders: No Hx Congestive Heart Failure: No Hx Hypertension: No Hx Hypercholesterolemia: No Hx Pacemaker: No HX Cerebrovascular Accident: No Hx Seizures: No Hx Dementia: No Hx Diabetes: No Hx Gastrointestinal Disorders: Yes (acid reflux) Hx Liver Disease: No Hx Genitourinary Disorders: No Hx Sexually Transmitted Disorders: No Hx Renal Disease (ESRD): No Hx Thyroid Disease: No Hx Human Immunodeficiency Virus (HIV): No Hx Hepatitis C: No Hx Depression: Yes (AND ANXIETY) Hx Suicide Attempt: No Hx Bipolar Disorder: No Hx Schizophrenia: No - Patient Surgical History Past Surgical History: Yes Hx Neurologic Surgery: No Hx Cataract Extraction: No Hx Cardiac Surgery: No Hx Lung Surgery: Yes (left pneumothorax at age 17) Hx Breast Surgery: No Hx Breast Biopsy: No Hx Abdominal Surgery: Yes (HERNIA REPAIR RIGHT) Hx Appendectomy: No Hx Cholecystectomy: No Hx Genitourinary Surgery: No Hx Orthopedic Surgery: No Anesthesia Reaction: No - PPD History Previous Implant?: Yes Documented Results: Negative w/proof Implanted On Prior R Admission?: Yes Date: 11/28/16 Results: 0 mm PPD to be Administered?: No - Smoking Cessation Smoking history: Never smoked Have you smoked in the past 12 months: No Hx Chewing Tobacco Use: No Initiated information on smoking cessation: No - Substance & Tx. History Hx Alcohol Use: No Hx Substance Use: Yes Substance Use Type: Cocaine, Heroin, Marijuana Hx Substance Use Treatment: Yes (11/2016) - Substances Abused Heroin Route: Injection Frequency: Daily Amount used: 15 bags Age of first use: 19 Date of Last Use: 04/18/17 Family Disease History - Family Disease History Family Disease History: [place]: Grandparent (PROSTATE), Mother (alive,BREAST), Other : Sister (cystic fibrosis) Admission Physical Exam BHS - Vital Signs Vital Signs: Vital Signs - 24 hr 04/18/17 17:55 Temperature 97.1 F L Pulse Rate 101 H Respiratory 18 Rate Blood Pressure 124/73 - Physical General Appearance: Yes: Appropriately Dressed, Mild Distress, Thin, Tremorous, Irritable, Sweating, Anxious HEENTM: Yes: Hearing grossly Normal, Normal ENT Inspection, Normocephalic, Normal Voice Respiratory: Yes: Chest Non-Tender, Lungs Clear, Normal Breath Sounds, No Respiratory Distress, No Accessory Muscle Use Neck: Yes: Supple, Trachea in good position Breast: Yes: Breasts Symetrical Cardiology: Yes: Regular Rhythm, S1, S2, Tachycardia Abdominal: Yes: Non Tender, Soft, Increased Bowel Sounds Genitourinary: Yes: Within Normal Limits Back: Yes: Normal Inspection Musculoskeletal: Yes: full range of Motion, Gait Steady, Back pain, Muscle Pain , Other (CHRONIC SPASMATIC) Extremities: Yes: Normal Inspection (IV HEROIN BOTH HANDS), Normal Range of Motion, Non-Tender, Tremors Neurological: Yes: Fully Oriented, Alert, Motor Strength 5/5, Normal Response, Depressed Affect Integumentary: Yes: Warm, Track [place]bert Lymphatic: Yes: Within Normal Limits - Diagnostic (1) Opioid dependence with withdrawal Current Visit: Yes Status: Acute (2) Cocaine dependence, uncomplicated Current Visit: Yes Status: Chronic (3) Opioid dependence with withdrawal Current Visit: Yes Status: Acute (4) Cystic fibrosis Current Visit: Yes Status: Chronic (5) Depression Current Visit: Yes Status: Suspected Qualifiers: Depression Type: dysthymia Qualified Code(s): F34.1 - Dysthymic disorder Cleared for Admission [facility] - Detox or Rehab [facility] Level of Care: Medically Managed Detox Regimen/Protocol: Methadone [facility] Breath Alcohol Content Breath Alcohol Content: 0 Urine Drug Screen - Results Drug Screen Negative: No Urine Drug Screen Results: THC-Marijuana, REYES-Cocaine, OPI-Opiates
[2017-04-18] MEDS ORDERED: guaiFENesin/D-METHORPHAN HB 10 ML UNIT-DOSE CUPS PO PRN (20:26)
[2017-04-18] MEDS ORDERED: ACETAMINOPHEN 325 MG TABLET (FP) PO PRN (20:26)
[2017-04-18] MEDS ORDERED: METHADONE HCL 10 MG TABLET (FOR DETOX USE ONLY) PO ONE ×2 (20:26→23:00)
[2017-04-18] MEDS ORDERED: LOPERAMIDE HCL 2 MG CAPSULE PO PRN (20:26)
[2017-04-18] MEDS ORDERED: MAGNESIUM HYDROX 2400MG/30ML ORAL SUSPENSION 30 ML CUP PO PRN (20:26)
[2017-04-18] MEDS ORDERED: MENTHOL/PHENOL 1 EACH UD MM PRN (20:26)
[2017-04-18] MEDS ORDERED: MAGNESIUM CITRATE 300 ML BOTTLE PO PRN (20:26)
[2017-04-18] MEDS ORDERED: P-EPHED 60MG/TRIPROLIDI 2.5MG TABLET PO PRN (20:26)
[2017-04-18] MEDS ORDERED: MAG HYDROX/AL HYDROX/SIMETH 30 ML UNIT-DOSE CUP PO PRN (20:26)
[2017-04-18] MEDS: GABAPENTIN 300 MG CAPSULE (FP) PO SCH (21:34)
[2017-04-18] MEDS: diazePAM 5 MG TABLET PO PRN (21:34)
[2017-04-18] MEDS: THIAMINE HCL 100 MG TABLET (FP) PO SCH (21:34)
[2017-04-18] MEDS ORDERED: GABAPENTIN 300 MG CAPSULE (FP) PO SCH (22:00)
[2017-04-18] MEDS: PATIENT'S OWN MEDICATION (NON-FORMULARY) (Lipase/Protease/Amylase [Creon Dr 24,000 Units C PO PRN (22:50)
[2017-04-18 22:55] LABS: URINE APPEARANCE CLOUDY; URINE BILIRUBIN NEGATIVE (NEGATIVE); URINE BLOOD NEGATIVE (NEGATIVE); URINE COLOR YELLOW; URINE GLUCOSE (UA) NEGATIVE (NEGATIVE); URINE KETONE NEGATIVE (NEGATIVE); URINE NITRITE NEGATIVE (NEGATIVE); URINE PROTEIN NEGATIVE (NEGATIVE); URINE UROBILINOGEN NEGATIVE mg/dL (0.2-1.0)
[2017-04-19] MEDS: GABAPENTIN 300 MG CAPSULE (FP) PO SCH ×3 (05:30→22:39)
[2017-04-19] MEDS: diazePAM 5 MG TABLET PO PRN ×4 (07:53→22:37)
[2017-04-19] MEDS: PATIENT'S OWN MEDICATION (NON-FORMULARY) (Lipase/Protease/Amylase [Creon Dr 24,000 Units C PO SCH ×3 (08:52→16:59)
[2017-04-19 09:17] LABS: URINE LEUK ESTERASE Negative (NEGATIVE)
[2017-04-19 09:50] LABS: MCH 23.8 pg (25.7-33.7); MCHC 31.9 g/dl (32.0-35.9); MEAN CELL VOLUME 74.4 fl (80-96); MEAN PLT VOLUME 10.5 fl (7.5-11.1); PLATELET COUNT 131 K/MM3 (134-434); RDW 16.5 % (11.9-15.9); WHITE BLOOD COUNT 11.2 K/mm3 (4.0-10.0)
[2017-04-19] MEDS ORDERED: METHADONE HCL 10 MG TABLET (FOR DETOX USE ONLY) PO ONE (10:00)
--- NOTE | 2017-04-19 10:07 | PN ---
BHS COWS - Scale Resting Pulse: 1= [place] 81-100 Sweatin= Chills/Flushing Restless Observation: 3= Extraneous Movement Pupil Size: 2= Moderately Dilated Bone or Joint Aches: 2= Severe Diffuse Aches Runny Nose/ Eye Tearin= Runny Nose/Eyes GI Upset > 30mins: 2= Nausea/Diarrhea Tremor Observation of Outstretched Hands: 2= Slight Tremor Visible Yawning Observation: 1= 1-2x During Session Anxiety or Irritability: 1=Feels Anxious/Irritable Goose Flesh Skin: 0=Smooth Skin COWS Score: 17 BHS Progress Note (SOAP) Subjective: alert,irritable,anxious,interrupted sleep,pain in the body and joint,back Objective: 04/19/17 10:05 Vital Signs Temperature 97.9 F 04/19/17 06:00 Pulse Rate 66 04/19/17 06:00 Respiratory Rate 18 04/19/17 06:00 Blood Pressure 102/57 04/19/17 06:00 O2 Sat by Pulse Oximetry (%) ekg nsr,normal ecg Laboratory Last Values WBC 11.2 K/mm3 (4.0-10.0) H 04/19/17 07:35 RBC 5.20 M/mm3 (4.00-5.60) 04/19/17 07:35 Hgb 12.4 GM/dL (11.7-16.9) 04/19/17 07:35 Hct 38.7 % (35.4-49) 04/19/17 07:35 MCV 74.4 fl (80-96) L 04/19/17 07:35 MCH 23.8 pg (25.7-33.7) L 04/19/17 07:35 MCHC 31.9 g/dl (32.0-35.9) L 04/19/17 07:35 RDW 16.5 % (11.9-15.9) H 04/19/17 07:35 Plt Count 131 K/MM3 (134-434) L 04/19/17 07:35 MPV 10.5 fl (7.5-11.1) 04/19/17 07:35 Urine Color Yellow 04/18/17 22:40 Urine Appearance Cloudy 04/18/17 22:40 Urine pH 7.0 (5.0-8.0) D 11/09/17 22:40 Ur Specific [place] 1.018 (1.001-1.035) 04/18/17 22:40 Urine Protein Negative (NEGATIVE) 04/18/17 22:40 Urine Glucose (UA) Negative (NEGATIVE) 04/18/17 22:40 Urine Ketones Negative (NEGATIVE) 04/18/17 22:40 Urine Blood Negative (NEGATIVE) 04/18/17 22:40 Urine Nitrite Negative (NEGATIVE) 04/18/17 22:40 Urine Bilirubin Negative (NEGATIVE) 04/18/17 22:40 Urine Urobilinogen Negative mg/dL (0.2-1.0) 04/18/17 22:40 Ur Leukocyte Esterase Negative (NEGATIVE) 04/18/17 22:40 04/19/17 10:06 labs pending Assessment: 04/19/17 10:06 withdrawal symptom Plan: continue detox
[2017-04-19] MEDS: BACITRACIN 0.9 GM PACKET TP SCH ×2 (10:33→22:37)
[2017-04-19] MEDS: PRENATAL VITAMINS W/ FOLIC ACID TABLET (FP) PO SCH (10:33)
[2017-04-19] MEDS: BACLOFEN 10 MG TABLET (FP) PO PRN ×2 (10:33→16:58)
[2017-04-19 11:07] LABS: ALBUMIN 3.2 g/dl (3.4-5.0); ANION GAP 13 (8-16); CALCIUM 8.7 mg/dL (8.5-10.1); CO2 23 mmol/L (21-32); CREATININE 0.8 mg/dL (0.7-1.3); GLUCOSE,RANDOM 95 mg/dL (74-106); SGPT/ALT 18 U/L (12-78)
[2017-04-19 11:09] LABS: ALK PHOS 91 U/L (45-117); BILIRUBIN,TOTAL 0.5 mg/dL (0.2-1.0); TOT PROT 7.7 g/dl (6.4-8.2)
[2017-04-19 11:18] LABS: SGOT/AST 24 U/L (15-37)
--- NOTE | 2017-04-19 11:58 | EKG ---
Test Reason : Blood Pressure : / mmHG Vent. Rate : 084 BPM Atrial Rate : 084 BPM P-R Int : 122 ms QRS Dur : 086 ms QT Int : 352 ms P-R-T Axes : 033 057 068 degrees QTc Int : 415 ms NORMAL SINUS RHYTHM NORMAL ECG WHEN COMPARED WITH ECG OF 26-NOV-2016 03:19, NO SIGNIFICANT CHANGE WAS FOUND Confirmed by MADY JULIAN MD ([id number]) on 04/19/2017 11:57:58 AM Referred By: JAMES HODGES Confirmed By:MADY JULIAN MD
[2017-04-19] MEDS: PATIENT'S OWN MEDICATION (NON-FORMULARY) (Lipase/Protease/Amylase [Creon Dr 24,000 Units C PO PRN ×2 (12:24→16:59)
--- NOTE | 2017-04-19 13:26 | CONSULT ---
[facility] Psychiatric Consult - Data Date of interview: 04/19/17 Admission source: [facility] Identifying data: Another admission to [facility] for this 21 y/o male seeking detox treatment on for heroin,benzodiazepine,cocaine and marijuana dependence.Patient is single without children,domiciled (lives with relatives),unemployed and supported by relatives. Substance Abuse History: Patient admits to active use of marihuana,cocaine and heroin.See [facility] report for details. Smoking history: Never smoked. Have you smoked in the past 12 months: No. Hx Chewing Tobacco Use: No. Initiated information on smoking cessation: No. - Substance & Tx. History. Hx Alcohol Use: No. Hx Substance Use: Yes. Substance Use Type: Cocaine, Heroin, Marijuana. Hx Substance Use Treatment: Yes (11/2016). - Substances Abused. Heroin. Route: Injection. Frequency: Daily. Amount used: 15 bags. Age of first use: 19. Date of Last Use: 04/18/17 Medical History: GERD,chronic pancreatitis,past history of right herniorraphy and cystic fibrosis. Psychiatric History: No history of psychiatric hospitalizations.Patient is currently seeing a psychiatrist at the [facility] in [facility].Mr Genao is prescribed trazodone 50 mg/hs.He denies history of suicide attempts. Physical/Sexual Abuse/Trauma History: No reported history of abuse. Additional Comment: Urine Drug Screen Results: THC-Marijuana, REYES-Cocaine, OPI- Opiates.Noted. Mental Status Exam - Mental Status Exam Alert and Oriented to: Time, Place, Person Cognitive Function: Good Patient Appearance: Well Groomed Mood: Withdrawn, Hopeful Affect: Mood Congruent Patient Behavior: Fatigued, Appropriate, Cooperative Speech Pattern: Clear Voice Loudness: Normal Thought Process: Intact, Goal Oriented Thought Disorder: Not Present Hallucinations: Denies Suicidal Ideation: Denies Homicidal Ideation: Denies Insight/Judgement: Poor Sleep: Poorly, Difficulty falling asleep Appetite: Good Muscle strength/Tone: Normal Gait/Station: Normal Psychiatric Findings - Problem List ([place] 1, 2,3) (1) Opioid dependence with withdrawal Current Visit: Yes Status: Acute (2) Cocaine dependence, uncomplicated Current Visit: Yes Status: Acute (3) Cannabis dependence Current Visit: Yes Status: Acute (4) Drug-induced mood disorder Current Visit: Yes Status: Acute (5) Insomnia Current Visit: Yes Status: Acute - Initial Treatment Plan Initial Treatment Plan: Psychoeducation.Detoxification.Sleep hygiene.Trazodone 50 mg po hs.patient is made aware of potential for priapism.He agrees with this careplan.Observation.
[2017-04-19] MEDS: THIAMINE HCL 100 MG TABLET (FP) PO SCH (22:37)
[2017-04-19] MEDS: traZODone HCL 50 MG TABLET (FP) PO SCH (22:38)
[2017-04-20] MEDS: diazePAM 5 MG TABLET PO PRN ×4 (07:10→22:15)
[2017-04-20] MEDS: GABAPENTIN 300 MG CAPSULE (FP) PO SCH ×3 (07:11→22:15)
[2017-04-20] MEDS ORDERED: METHADONE HCL 5 MG TABLET (FOR DETOX USE ONLY) PO ONE (10:00)
[2017-04-20] MEDS: PATIENT'S OWN MEDICATION (NON-FORMULARY) (Lipase/Protease/Amylase [Creon Dr 24,000 Units C PO SCH ×3 (10:37→17:50)
[2017-04-20] MEDS: BACLOFEN 10 MG TABLET (FP) PO PRN ×2 (10:37→22:15)
[2017-04-20] MEDS: PRENATAL VITAMINS W/ FOLIC ACID TABLET (FP) PO SCH (10:37)
[2017-04-20] MEDS: BACITRACIN 0.9 GM PACKET TP SCH ×2 (10:37→22:15)
--- NOTE | 2017-04-20 11:20 | PN ---
BHS COWS - Scale Resting Pulse: 1= [place] 81-100 Sweatin= Chills/Flushing Restless Observation: 3= Extraneous Movement Pupil Size: 1= Pupils >than Normal Bone or Joint Aches: 2= Severe Diffuse Aches Runny Nose/ Eye Tearin= Runny Nose/Eyes GI Upset > 30mins: 2= Nausea/Diarrhea Tremor Observation of Outstretched Hands: 2= Slight Tremor Visible Yawning Observation: 1= 1-2x During Session Anxiety or Irritability: 2=Irritable/Anxious Goose Flesh Skin: 0=Smooth Skin COWS Score: 17 BHS Progress Note (SOAP) Subjective: alert,irritable,anxious,interrupted sleep,pain in the body Objective: 04/20/17 11:20 Vital Signs Temperature 97.8 F 04/20/17 10:19 Pulse Rate 87 04/20/17 10:19 Respiratory Rate 18 04/20/17 10:19 Blood Pressure 121/78 04/20/17 10:19 O2 Sat by Pulse Oximetry (%) Laboratory Last Values WBC 11.2 K/mm3 (4.0-10.0) H 04/19/17 07:35 RBC 5.20 M/mm3 (4.00-5.60) 04/19/17 07:35 Hgb 12.4 GM/dL (11.7-16.9) 04/19/17 07:35 Hct 38.7 % (35.4-49) 04/19/17 07:35 MCV 74.4 fl (80-96) L 04/19/17 07:35 MCH 23.8 pg (25.7-33.7) L 04/19/17 07:35 MCHC 31.9 g/dl (32.0-35.9) L 04/19/17 07:35 RDW 16.5 % (11.9-15.9) H 04/19/17 07:35 Plt Count 131 K/MM3 (134-434) L 04/19/17 07:35 MPV 10.5 fl (7.5-11.1) 04/19/17 07:35 Sodium 140 mmol/L (136-145) 04/19/17 07:35 Potassium 4.2 mmol/L (3.5-5.1) 04/19/17 07:35 Chloride 104 mmol/L (98-107) 04/19/17 07:35 Carbon Dioxide 23 mmol/L (21-32) D 04/19/17 07:35 Anion Gap 13 (8-16) 04/19/17 07:35 BUN 12 mg/dL (7-18) 04/19/17 07:35 Creatinine 0.8 mg/dL (0.7-1.3) 04/19/17 07:35 Creat Clearance w eGFR > 60 (>60) 04/19/17 07:35 Random Glucose 95 mg/dL (74-106) 04/19/17 07:35 Calcium 8.7 mg/dL (8.5-10.1) 04/19/17 07:35 Total Bilirubin 0.5 mg/dL (0.2-1.0) 04/19/17 07:35 AST 24 U/L (15-37) 04/19/17 07:35 ALT 18 U/L (12-78) D 04/19/17 07:35 Alkaline Phosphatase 91 U/L (45-117) 04/19/17 07:35 Total Protein 7.7 g/dl (6.4-8.2) 04/19/17 07:35 Albumin 3.2 g/dl (3.4-5.0) L 04/19/17 07:35 Urine Color Yellow 04/18/17 22:40 Urine Appearance Cloudy 04/18/17 22:40 Urine pH 7.0 (5.0-8.0) D 04/18/17 22:40 Ur Specific [place] 1.018 (1.001-1.035) 04/18/17 22:40 Urine Protein Negative (NEGATIVE) 04/18/17 22:40 Urine Glucose (UA) Negative (NEGATIVE) 04/18/17 22:40 Urine Ketones Negative (NEGATIVE) 04/18/17 22:40 Urine Blood Negative (NEGATIVE) 04/18/17 22:40 Urine Nitrite Negative (NEGATIVE) 04/18/17 22:40 Urine Bilirubin Negative (NEGATIVE) 04/18/17 22:40 Urine Urobilinogen Negative mg/dL (0.2-1.0) 04/18/17 22:40 Ur Leukocyte Esterase Negative (NEGATIVE) 04/18/17 22:40 RPR Titer Nonreactive (NONREACTIVE) 04/19/17 07:35 Assessment: 04/20/17 11:21 withdrawal symptom Plan: continue detox,repeat cbc in am
[2017-04-20] MEDS: PATIENT'S OWN MEDICATION (NON-FORMULARY) (Lipase/Protease/Amylase [Creon Dr 24,000 Units C PO PRN ×2 (12:31→16:56)
[2017-04-20] MEDS: THIAMINE HCL 100 MG TABLET (FP) PO SCH (22:15)
[2017-04-20] MEDS: traZODone HCL 50 MG TABLET (FP) PO SCH (22:15)
[2017-04-20] MEDS: ALBUTEROL SO4 18 GM HFA INHALER IH PRN (22:16)
[2017-04-21] MEDS: GABAPENTIN 300 MG CAPSULE (FP) PO SCH ×3 (07:09→22:14)
[2017-04-21] MEDS: diazePAM 5 MG TABLET PO PRN ×3 (07:10→20:02)
[2017-04-21] MEDS: PATIENT'S OWN MEDICATION (NON-FORMULARY) (Lipase/Protease/Amylase [Creon Dr 24,000 Units C PO SCH ×3 (08:26→18:05)
--- NOTE | 2017-04-21 09:57 | PN ---
S Progress Note (SOAP) Subjective: alert,irritable,anxious,interrupted sleep,pain in the body and back Objective: 04/21/17 09:56 Vital Signs Temperature 98.2 F 04/21/17 06:04 Pulse Rate 100 H 04/21/17 06:04 Respiratory Rate 20 04/21/17 06:04 Blood Pressure 97/54 04/21/17 06:04 O2 Sat by Pulse Oximetry (%) Assessment: 04/21/17 09:56 withdrawal symptom Plan: continue detox,repeat cbc pending,fluid
[2017-04-21] MEDS ORDERED: METHADONE HCL 5 MG TABLET (FOR DETOX USE ONLY) PO ONE (10:00)
[2017-04-21] MEDS: BACLOFEN 10 MG TABLET (FP) PO PRN (10:26)
[2017-04-21] MEDS: PRENATAL VITAMINS W/ FOLIC ACID TABLET (FP) PO SCH (10:26)
[2017-04-21] MEDS: BACITRACIN 0.9 GM PACKET TP SCH ×2 (10:26→22:14)
[2017-04-21] MEDS: IBUPROFEN 400 MG TABLET (FP) PO PRN (10:27)
[2017-04-21 11:23] LABS: MCH 23.3 pg (25.7-33.7); MCHC 31.1 g/dl (32.0-35.9); MEAN CELL VOLUME 74.9 fl (80-96); MEAN PLT VOLUME 10.9 fl (7.5-11.1); PLATELET COUNT 155 K/MM3 (134-434); RDW 17.1 % (11.9-15.9); WHITE BLOOD COUNT 11.1 K/mm3 (4.0-10.0)
[2017-04-21] MEDS: PATIENT'S OWN MEDICATION (NON-FORMULARY) (Lipase/Protease/Amylase [Creon Dr 24,000 Units C PO PRN (20:01)
[2017-04-21] MEDS: traZODone HCL 50 MG TABLET (FP) PO SCH (22:14)
[2017-04-21] MEDS: THIAMINE HCL 100 MG TABLET (FP) PO SCH (23:03)
[2017-04-22] MEDS: GABAPENTIN 300 MG CAPSULE (FP) PO SCH ×3 (06:22→22:24)
[2017-04-22] MEDS: PATIENT'S OWN MEDICATION (NON-FORMULARY) (Lipase/Protease/Amylase [Creon Dr 24,000 Units C PO SCH ×3 (09:11→17:20)
--- NOTE | 2017-04-22 09:33 | PN ---
S Progress Note (SOAP) Subjective: alert,irritable,anxious,interrupted sleep Objective: 04/22/17 09:31 Vital Signs Temperature 97.7 F 04/22/17 06:04 Pulse Rate 78 04/22/17 06:04 Respiratory Rate 18 04/22/17 06:04 Blood Pressure 92/56 04/22/17 06:04 O2 Sat by Pulse Oximetry (%) 04/22/17 09:32 Laboratory Results - last 24 hr 04/21/17 07:40 WBC 11.1 H RBC 5.74 H Hgb 13.4 Hct 43.1 MCV 74.9 L MCH 23.3 L MCHC 31.1 L RDW 17.1 H Plt Count 155 MPV 10.9 Assessment: 04/22/17 09:32 withdrawal symptom Plan: continue detox,encourage oral fluid
[2017-04-22] MEDS ORDERED: METHADONE HCL 10 MG TABLET (FOR DETOX USE ONLY) PO ONE (10:00)
[2017-04-22] MEDS: BACITRACIN 0.9 GM PACKET TP SCH ×2 (10:18→22:46)
[2017-04-22] MEDS: PRENATAL VITAMINS W/ FOLIC ACID TABLET (FP) PO SCH (10:18)
[2017-04-22] MEDS: IBUPROFEN 400 MG TABLET (FP) PO PRN (10:21)
[2017-04-22] MEDS: PATIENT'S OWN MEDICATION (NON-FORMULARY) (Lipase/Protease/Amylase [Creon Dr 24,000 Units C PO PRN ×2 (16:52→22:25)
[2017-04-22] MEDS: BACLOFEN 10 MG TABLET (FP) PO PRN (22:24)
[2017-04-22] MEDS: THIAMINE HCL 100 MG TABLET (FP) PO SCH (22:24)
[2017-04-22] MEDS: ALBUTEROL SO4 18 GM HFA INHALER IH PRN (22:25)
[2017-04-22] MEDS: traZODone HCL 50 MG TABLET (FP) PO SCH (22:25)
[2017-04-23] MEDS: GABAPENTIN 300 MG CAPSULE (FP) PO SCH (05:47)
[2017-04-23] MEDS ORDERED: METHADONE HCL 5 MG TABLET (FOR DETOX USE ONLY) PO ONE (06:00)
[2017-04-23] MEDS: PATIENT'S OWN MEDICATION (NON-FORMULARY) (Lipase/Protease/Amylase [Creon Dr 24,000 Units C PO SCH (08:10)
--- NOTE | 2017-04-23 08:44 | DS ---
[facility] Detox Discharge Summary Admission Date: 04/18/17 Discharge Date: 04/23/17 - History Present History: Cocaine Dependence, Opioid Dependence Additional Comments: follow up with after care program as arrangement Pertinent Past History: cystic fibrosis depression - Physical Exam Results Vital Signs: Vital Signs Temperature 97.9 F 04/23/17 06:00 Pulse Rate 103 H 04/23/17 06:00 Respiratory Rate 16 04/23/17 06:00 Blood Pressure 103/61 04/23/17 06:00 O2 Sat by Pulse Oximetry (%) Pertinent Admission Physical Exam Findings: withdrawal symptom - Treatment Hospital Course: Detox Protocol Followed, Detoxed Safely, Responded well, Discharged Condition Good Patient has Accepted a Rehab Referral to: [facility] - Medication Discharge Medications: Ambulatory Orders Albuterol Sulfate Inhaler - [Ventolin HFA Inhaler -] 2 inh PO Q4H PRN #1 inhaler 04/11/16 Lipase/Protease/Amylase [Arti Hawkins 24,000 Units Capsule] 10 cap PO TID #120 capsule. 04/11/16 Cephalexin 1 cap PO BID 11/26/16 Fluticasone/Salmeterol [Advair Hfa 115-21 Mcg Inhaler] 2 puff IH BID 11/26/16 Gabapentin [Gabapentin] 2 cap PO TID 11/26/16 Lipase/Protease/Amylase [Arti Hawkins 24,000 Units Capsule] 10 cap PO AC 11/26/16 Gabapentin [Neurontin -] 600 mg PO TID #90 cap 11/27/16 Trazodone HCl [Desyrel -] 100 mg PO BID #60 tablet 11/27/16 Trazodone HCl 50 mg PO HS #30 tablet 04/19/17 - Diagnosis (1) Opioid dependence with withdrawal Current Visit: Yes Status: Acute (2) Cocaine dependence, uncomplicated Current Visit: Yes Status: Acute (3) Cystic fibrosis Current Visit: Yes Status: Chronic (4) Depression Current Visit: Yes Status: Suspected Qualifiers: Depression Type: dysthymia Qualified Code(s): F34.1 - Dysthymic disorder - AMA Did Patient Leave Against Medical Advice: No
[2017-04-23 10:14] VITALS: BP 122/77; PULSE 96; TEMP 96.4
== END 2017-04-23 09:45 | disposition home or self-care (01) | DRG 897 ==
LOC: YASAS 16:41 → Y6N 19:30
PROVIDERS: ADMIT Internal Medicine; ATTEND Internal Medicine
PROC: HZ2ZZZZ Detoxification Services for Substance Abuse Treatment (ICD-10-PCS; principal; 2017-04-18)
DX: F11.23 Opioid dependence with withdrawal (principal); F14.20 Cocaine dependence, uncomplicated; E84.9 Cystic fibrosis, unspecified; F12.20 Cannabis dependence, uncomplicated; F34.1 Dysthymic disorder; F19.24 Other psychoactive substance dependence with psychoactive substance-induced mood disorder; F41.8 Other specified anxiety disorders; G47.00 Insomnia, unspecified
CPT/HCPCS: 36415; 80053; 81003; 85027; 86593; 93005; 93010; J0475

== ENCOUNTER 2018-06-24 12:51 | Inpatient (IN) | payer OTHER ==
[2018-06-24 13:22] VITALS: BMI 18.1
--- NOTE | 2018-06-24 15:34 | HP ---
COWS - Scale Resting Pulse: 2= MO 101-120 Sweatin=Flushed/Facial Moisture Restless Observation: 1= Difficult to Sit Still Pupil Size: 0= Normal to Room Light Bone or Joint Aches: 2= Severe Diffuse Aches Runny Nose/ Eye Tearin= Runny Nose/Eyes GI Upset > 30mins: 0= None Tremor Observation: 2= Slight Tremor Visible Yawning Observation: 2= >3x During Session Anxiety or Irritability: 2=Irritable/Anxious Goose Flesh Skin: 3=Piloerection COWS Score: 18 CIWA Score - Admission Criteria [facility]ASAS Guidelines: Admission for Medically Managed Detox: Requires at least one of the followin. CIWA greater than 12 2. Seizures within the past 24 hours 3. Delirium tremens within the past 24 hours 4. Hallucinations within the past 24 hours 5. Acute intervention needed for co occurring medical disorder 6. Acute intervention needed for co occurring psychiatric disorder 7. Severe withdrawal that cannot be handled at a lower level of care (continued vomiting, continued diarrhea, abnormal vital signs) requiring intravenous medication and/or fluids 8. Admission ROS [facility] - HPI Chief Complaint: I am here to detox and get off the heroin and fentanyl. Allergies/Adverse Reactions: Allergies Allergy/AdvReac Type Severity Reaction Status Date / Time vancomycin Allergy Severe Verified 06/24/18 15:24 History of Present Illness: pt is a 22yr old male with a history of heroin dependence seeking detox for treatment. ISTOP was checked last time had rx suboxone was 03/2018. Exam Limitations: No Limitations - Ebola screening Have you traveled outside of the country in the last 21 days: No Have you had contact with anyone from an Ebola affected area: No Have you been sick,other than usual withdrawal symptoms: No Do you have a fever: No - Review of Systems Constitutional: Chills, Diaphoresis, Loss of Appetite, Night Sweats, Changes in sleep, Unintentional Wgt. Loss EENT: reports: Tearing, Tinnitus (r/t the tobramyacin.), Nose Congestion Respiratory: reports: No Symptoms reported Cardiac: reports: No Symptoms Reported GI: reports: Nausea, Poor Appetite, Poor Fluid Intake, Vomiting, Indigestion : reports: No Symptoms Reported Musculoskeletal: reports: Back Pain, Joint Pain, Muscle Weakness, Joint Stiffness Integumentary: reports: Flushing, Sweating Neuro: reports: Tingling, Tremors Endocrine: reports: Excessive Sweating, Flushing, Intolerance to Cold, Intolerance to Heat Hematology: reports: No Symptoms Reported Psychiatric: reports: Judgement Intact, Mood/Affect Appropiate, Orientated x3, Agitated, Anxious Other Systems: Reviewed and Negative Patient History - Patient Medical History Hx Anemia: No Hx Asthma: No (CYSTIC FIBROSIS) Hx Chronic Obstructive Pulmonary Disease (COPD): No Hx Cancer: No Hx Cardiac Disorders: No Hx Congestive Heart Failure: No Hx Hypertension: No Hx Hypercholesterolemia: No Hx Pacemaker: No HX Cerebrovascular Accident: No Hx Seizures: No Hx Dementia: No Hx Diabetes: No Hx Gastrointestinal Disorders: Yes (acid reflux) Hx Liver Disease: No Hx Genitourinary Disorders: No Hx Sexually Transmitted Disorders: No Hx Renal Disease (ESRD): No Hx Thyroid Disease: No Hx Human Immunodeficiency Virus (HIV): No (negative) Hx Hepatitis C: No (negative) Hx Depression: Yes (AND ANXIETY) Hx Suicide Attempt: No (denies) Hx Bipolar Disorder: No Hx Schizophrenia: No - Patient Surgical History Past Surgical History: Yes Hx Neurologic Surgery: No Hx Cataract Extraction: No Hx Cardiac Surgery: No Hx Lung Surgery: Yes (left pneumothorax at age 17) Hx Breast Surgery: No Hx Breast Biopsy: No Hx Abdominal Surgery: Yes (HERNIA REPAIR RIGHT) Hx Appendectomy: No Hx Cholecystectomy: No Hx Genitourinary Surgery: No Hx Section: No Hx Orthopedic Surgery: No Anesthesia Reaction: No - PPD History Previous Implant?: Yes Documented Results: Negative w/o proof PPD to be Administered?: Yes - Reproductive History Patient is a Female of Child Bearing Age (11 -55 yrs old): No - Smoking Cessation Smoking history: Never smoked Have you smoked in the past 12 months: No Hx Chewing Tobacco Use: No Initiated information on smoking cessation: No - Substance & Tx. History Hx Alcohol Use: No Hx Substance Use: Yes Substance Use Type: Cocaine, Heroin Hx Substance Use Treatment: Yes (last detox 2017 [facility]) - Substances Abused Heroin Route: Injection Frequency: Daily Amount used: 15 bags Age of first use: 18 Date of Last Use: 06/24/18 Family Disease History - Family Disease History Family Disease History: CA: Grandparent (PROSTATE), Mother (alive,BREAST), Other : Sister (cystic fibrosis) Admission Physical Exam BHS - Vital Signs Vital Signs: Vital Signs - 24 hr 06/24/18 13:21 Temperature 96.4 F L Pulse Rate 105 H Respiratory 17 Rate Blood Pressure 111/70 - Physical General Appearance: Yes: Appropriately Dressed, Moderate Distress, Thin, Tremorous, Irritable, Sweating, Anxious HEENTM: Yes: Hearing grossly Normal, Normal Voice, Nasal Congestion, Rhinorrhea Respiratory: Yes: Lungs Clear, Normal Breath Sounds, No Respiratory Distress Neck: Yes: No masses,lesions,Nodules Breast: Yes: Within Normal Limits Cardiology: Yes: Regular Rhythm, Regular Rate, Tachycardia Abdominal: Yes: Non Tender Genitourinary: Yes: Within Normal Limits Back: Yes: Normal Inspection Musculoskeletal: Yes: Back pain Extremities: Yes: Normal Inspection, Non-Tender, Tremors Neurological: Yes: Fully Oriented, Alert, Normal Response Integumentary: Yes: Diaphoresis, Track Hebert Lymphatic: Yes: Within Normal Limits - Diagnostic (1) Opioid dependence with withdrawal Current Visit: Yes Status: Chronic (2) Sedative, hypnotic or anxiolytic dependence with withdrawal, uncomplicated Current Visit: No Status: Acute (3) Anxiety and depression Current Visit: No Status: Chronic (4) Benzodiazepine dependence Current Visit: No Status: Chronic (5) Cystic fibrosis Current Visit: Yes Status: Chronic (6) GERD (gastroesophageal reflux disease) Current Visit: Yes Status: Chronic Qualifiers: Esophagitis presence: without esophagitis Qualified Code(s): K21.9 - Gastro -esophageal reflux disease without esophagitis Cleared for Admission [facility] - Detox or Rehab [facility] Level of Care: Medically Managed Detox Regimen/Protocol: Methadone [facility] Breath Alcohol Content Breath Alcohol Content: 0 Urine Drug Screen - Results Drug Screen Negative: No Urine Drug Screen Results: THC-Marijuana, OPI-Opiates, FEN-Fentanyl, BUP- Suboxone
[2018-06-24] MEDS ORDERED: MAGNESIUM CITRATE 300 ML BOTTLE PO PRN (15:55)
[2018-06-24] MEDS ORDERED: P-EPHED 60MG/TRIPROLIDI 2.5MG TABLET PO PRN (15:55)
[2018-06-24] MEDS ORDERED: MENTHOL/PHENOL 1 EACH UD MM PRN (15:55)
[2018-06-24] MEDS ORDERED: guaiFENesin/D-METHORPHAN HB 10 ML UNIT-DOSE CUPS PO PRN (15:55)
[2018-06-24] MEDS ORDERED: hydrOXYzine PAMOATE 50 MG CAPSULE (FP) PO PRN (15:55)
[2018-06-24] MEDS ORDERED: MAG HYDROX/AL HYDROX/SIMETH 30 ML UNIT-DOSE CUP PO PRN (15:55)
[2018-06-24] MEDS ORDERED: IBUPROFEN 400 MG TABLET (FP) PO PRN (15:55)
[2018-06-24] MEDS ORDERED: ACETAMINOPHEN 325 MG TABLET (FP) PO PRN (15:55)
[2018-06-24] MEDS ORDERED: MAGNESIUM HYDROX 2400MG/30ML ORAL SUSPENSION 30 ML CUP PO PRN (15:55)
[2018-06-24] MEDS ORDERED: LOPERAMIDE HCL 2 MG CAPSULE PO PRN (15:55)
[2018-06-24] MEDS ORDERED: ALBUTEROL SO4 8 GM HFA INHALER IH PRN (15:58)
[2018-06-24] MEDS ORDERED: IBUPROFEN 600 MG TABLET (FP) PO PRN (16:00)
[2018-06-24] MEDS ORDERED: LIPASE/PROTEASE/AMYLASE 36,000 UNIT CAPSULE PO SCH (16:00)
[2018-06-24] MEDS ORDERED: LIDOCAINE 5% TOPICAL PATCH TP ONE (17:30)
[2018-06-24] MEDS ORDERED: METHADONE HCL 10 MG TABLET (FOR DETOX USE ONLY) PO ONE ×2 (17:45→23:00)
[2018-06-24] MEDS: diazePAM 5 MG TABLET PO PRN ×2 (18:01→22:13)
[2018-06-24] MEDS: LIPASE/PROTEASE/AMYLASE 36,000 UNIT CAPSULE PO SCH (18:52)
[2018-06-24] MEDS: BUDESONIDE/FORMETEROL FUMARATE 80/4.5 mcg INHALER IH SCH (22:12)
[2018-06-24] MEDS: THIAMINE HCL 100 MG TABLET (FP) PO SCH (22:13)
[2018-06-24] MEDS: IBUPROFEN 600 MG TABLET (FP) PO PRN (22:14)
[2018-06-24] MEDS: LIDOCAINE PATCH REMOVAL MC SCH (22:14)
[2018-06-25] MEDS: diazePAM 5 MG TABLET PO PRN ×4 (07:21→20:05)
--- NOTE | 2018-06-25 07:35 | CONSULT ---
[facility] Psychiatric Consult - Data Date of interview: 06/25/18 Admission source: [facility] Identifying data: This is a 22 years old male, single, unemployed, on SSD, living with family is here reporting withdrawalo symptoms and seeking detox from Heroin. Patient reports a history of heroin dependence, reports no psychiatric hospitalization history. Substance Abuse History: - Smoking Cessation. Smoking history: Never smoked. Have you smoked in the past 12 months: No. Hx Chewing Tobacco Use: No. Initiated information on smoking cessation: No. - Substance & Tx. History. Hx Alcohol Use: No. Hx Substance Use: Yes. Substance Use Type: Cocaine, Heroin. Hx Substance Use Treatment: Yes (last detox 2017 [facility]). - Substances Abused. Heroin. Route: Injection. Frequency: Daily. Amount used: 15 bags. Age of first use: 18. Date of Last Use: 06/24/18 Medical History: Cystic Fibrosis history Psychiatric History: Patient reports history of depression, anxiety and insomnia , denies suiidal, homicidal ideation history, reports taking prior to admission. Lyrica 50mg po bid, asking for sleeping aid. Denies psychiatric hospitalization history Physical/Sexual Abuse/Trauma History: Denies Additional Comment: Seroquel 100mg po qhs Mental Status Exam - Mental Status Exam Alert and Oriented to: Person Cognitive Function: Fair Mood: Anxious Affect: Mood Congruent Patient Behavior: Cooperative Speech Pattern: Appropriate Voice Loudness: Normal Thought Process: Goal Oriented Thought Disorder: Being Controlled Hallucinations: Denies Suicidal Ideation: Denies Homicidal Ideation: Denies Insight/Judgement: Fair Sleep: Difficulty falling asleep Appetite: Fair Muscle strength/Tone: Normal Gait/Station: Normal Additional Comments: Seroquel 100mg po qhs Psychiatric Findings - Problem List (Morrison 1, 2,3) (1) Cystic fibrosis Current Visit: Yes Status: Chronic (2) GERD (gastroesophageal reflux disease) Current Visit: Yes Status: Chronic Qualifiers: Esophagitis presence: without esophagitis Qualified Code(s): K21.9 - Gastro -esophageal reflux disease without esophagitis (3) Opioid dependence with withdrawal Current Visit: Yes Status: Chronic (4) Sedative, hypnotic or anxiolytic dependence with withdrawal, uncomplicated Current Visit: No Status: Acute (5) Anxiety and depression Current Visit: No Status: Chronic (6) Benzodiazepine dependence Current Visit: No Status: Chronic - Initial Treatment Plan Initial Treatment Plan: Seroquel 100mg po qhs
[2018-06-25] MEDS: LIPASE/PROTEASE/AMYLASE 36,000 UNIT CAPSULE PO SCH (08:01)
--- NOTE | 2018-06-25 09:38 | PN ---
BHS COWS - Scale Resting Pulse: 0= [place] 80 or Below Sweatin= Chills/Flushing Restless Observation: 1= Difficult to Sit Still Pupil Size: 1= Pupils >than Normal Bone or Joint Aches: 2= Severe Diffuse Aches Runny Nose/ Eye Tearin= Runny Nose/Eyes GI Upset > 30mins: 2= Nausea/Diarrhea Tremor Observation of Outstretched Hands: 2= Slight Tremor Visible Yawning Observation: 1= 1-2x During Session Anxiety or Irritability: 2=Irritable/Anxious Goose Flesh Skin: 0=Smooth Skin COWS Score: 14 S Progress Note (SOAP) Subjective: reported brought in enzyme medication and lyrica upon admission patient began to take enzyme medication since age 7 "inherited" the dosage of enzyme medication based on the amount of food intact encourage the patient to fetch his own medication from his property patient received his own creon as per label stated that take 10 cap of 24,000 with each meal and take 6 cap with each snake body aches tremor anxiety Objective: 06/25/18 10:26 Vital Signs Temperature 98.2 F 06/25/18 09:15 Pulse Rate 104 H 06/25/18 09:15 Respiratory Rate 20 06/25/18 09:15 Blood Pressure 107/70 06/25/18 09:15 O2 Sat by Pulse Oximetry (%) Laboratory Last Values Sodium 138 mmol/L (136-145) 06/25/18 07:00 Potassium 3.8 mmol/L (3.5-5.1) 06/25/18 07:00 Chloride 102 mmol/L (98-107) 06/25/18 07:00 Carbon Dioxide 27 mmol/L (21-32) 06/25/18 07:00 Anion Gap 9 MMOL/L (8-16) 06/25/18 07:00 BUN 16 mg/dL (7-18) 06/25/18 07:00 Creatinine 0.8 mg/dL (0.55-1.3) 06/25/18 07:00 Creat Clearance w eGFR > 60 (>60) 06/25/18 07:00 Random Glucose 95 mg/dL (74-106) 06/25/18 07:00 Calcium 8.3 mg/dL (8.5-10.1) L 06/25/18 07:00 Total Bilirubin 0.8 mg/dL (0.2-1) 06/25/18 07:00 AST 15 U/L (15-37) 06/25/18 07:00 ALT 19 U/L (13-61) 06/25/18 07:00 Alkaline Phosphatase 100 U/L (45-117) 06/25/18 07:00 Total Protein 7.6 g/dl (6.4-8.2) 06/25/18 07:00 Albumin 3.4 g/dl (3.4-5.0) 06/25/18 07:00 lab noted Assessment: 06/25/18 10:26 opiate withdrawal sx Plan: continue detox
--- NOTE | 2018-06-25 09:52 | EKG ---
Test Reason : Blood Pressure : / mmHG Vent. Rate : 102 BPM Atrial Rate : 102 BPM P-R Int : 116 ms QRS Dur : 082 ms QT Int : 330 ms P-R-T Axes : 049 067 069 degrees QTc Int : 430 ms SINUS TACHYCARDIA OTHERWISE NORMAL ECG WHEN COMPARED WITH ECG OF 18-APR-2017 21:54, NO SIGNIFICANT CHANGE WAS FOUND Confirmed by AL HENDRICKS MD ([id number]) on 06/25/2018 9:52:01 AM Referred By: Confirmed By:AL HENDRICKS MD
[2018-06-25] MEDS ORDERED: METHADONE HCL 10 MG TABLET (FOR DETOX USE ONLY) PO ONE (10:00)
[2018-06-25 10:17] LABS: ALBUMIN 3.4 g/dl (3.4-5.0); ALK PHOS 100 U/L (45-117); ANION GAP 9 MMOL/L (8-16); BILIRUBIN,TOTAL 0.8 mg/dL (0.2-1); BLOOD UREA NITROGEN 16 mg/dL (7-18); CALCIUM 8.3 mg/dL (8.5-10.1); CHLORIDE 102 mmol/L (98-107); CO2 27 mmol/L (21-32); CREATININE 0.8 mg/dL (0.55-1.3); GLUCOSE,RANDOM 95 mg/dL (74-106); POTASSIUM 3.8 mmol/L (3.5-5.1); SGOT/AST 15 U/L (15-37); SGPT/ALT 19 U/L (13-61); SODIUM 138 mmol/L (136-145); TOT PROT 7.6 g/dl (6.4-8.2)
[2018-06-25 10:23] LABS: HEMATOCRIT 40.4 % (35.4-49); HEMOGLOBIN 13.4 GM/dL (11.7-16.9); MCH 24.6 pg (25.7-33.7); MCHC 33.2 g/dl (32.0-35.9); MEAN PLT VOLUME 10.9 fl (7.5-11.1); PLATELET COUNT 151 K/MM3 (134-434); RBC 5.46 M/mm3 (4.00-5.60); RDW 17.2 % (11.9-15.9); WHITE BLOOD COUNT 10.2 K/mm3 (4.0-10.0)
[2018-06-25] MEDS: BUDESONIDE/FORMETEROL FUMARATE 80/4.5 mcg INHALER IH SCH ×2 (10:23→22:13)
[2018-06-25] MEDS: PRENATAL VITAMINS W/ FOLIC ACID TABLET (FP) PO SCH (10:23)
[2018-06-25] MEDS: LIDOCAINE 5% TOPICAL PATCH TP SCH (10:24)
[2018-06-25] MEDS ORDERED: PATIENT'S OWN MEDICATION (NON-FORMULARY) (Lipase/Protease/Amylase [Creon Dr 24,000 Units C PO SCH ×5 (10:30→16:52)
[2018-06-25] MEDS: IBUPROFEN 600 MG TABLET (FP) PO PRN ×2 (11:54→22:11)
[2018-06-25] MEDS ORDERED: PATIENT'S OWN MEDICATION (NON-FORMULARY) (Lipase/Protease/Amylase [Creon Dr 24,000 Units C PO PRN ×2 (16:10→16:55)
[2018-06-25] MEDS: PATIENT'S OWN MEDICATION (NON-FORMULARY) (Lipase/Protease/Amylase [Creon Dr 24,000 Units C PO SCH (16:52)
[2018-06-25] MEDS: THIAMINE HCL 100 MG TABLET (FP) PO SCH (22:09)
[2018-06-25] MEDS: QUEtiapine FUMARATE 100 MG TABLET (FP) PO SCH (22:09)
[2018-06-25] MEDS: MELATONIN 5 MG TABLETS PO PRN (22:10)
[2018-06-25] MEDS: LIDOCAINE PATCH REMOVAL MC SCH (22:13)
[2018-06-26] MEDS: diazePAM 5 MG TABLET PO PRN ×4 (07:39→22:08)
[2018-06-26] MEDS: PATIENT'S OWN MEDICATION (NON-FORMULARY) (Lipase/Protease/Amylase [Creon Dr 24,000 Units C PO SCH ×3 (07:59→17:04)
[2018-06-26] MEDS ORDERED: METHADONE HCL 5 MG TABLET (FOR DETOX USE ONLY) PO ONE (10:00)
--- NOTE | 2018-06-26 10:20 | PN ---
BHS COWS - Scale Resting Pulse: 1= [place] 81-100 Sweatin= Chills/Flushing Restless Observation: 1= Difficult to Sit Still Pupil Size: 1= Pupils >than Normal Bone or Joint Aches: 1= Mild Discomfort Runny Nose/ Eye Tearin= Nasal Congestion GI Upset > 30mins: 1= Stomach Cramp Tremor Observation of Outstretched Hands: 1= Tremor [place], Not Seen Yawning Observation: 1= 1-2x During Session Anxiety or Irritability: 1=Feels Anxious/Irritable Goose Flesh Skin: 0=Smooth Skin COWS Score: 10 BHS Progress Note (SOAP) Subjective: long history of asthma treated with rescue pump and nebulizer at home c/o chest tightness wheezing bilaterally encourage administer rescue pump and nebulizer body aches tremor Objective: 06/26/18 10:22 Vital Signs Temperature 98.6 F 06/26/18 09:26 Pulse Rate 115 H 06/26/18 09:26 Respiratory Rate 20 06/26/18 09:26 Blood Pressure 131/76 06/26/18 09:26 O2 Sat by Pulse Oximetry (%) Laboratory Last Values WBC 10.2 K/mm3 (4.0-10.0) H 06/25/18 07:00 RBC 5.46 M/mm3 (4.00-5.60) 06/25/18 07:00 Hgb 13.4 GM/dL (11.7-16.9) 06/25/18 07:00 Hct 40.4 % (35.4-49) 06/25/18 07:00 MCV 74.0 fl (80-96) L 06/25/18 07:00 MCH 24.6 pg (25.7-33.7) L 06/25/18 07:00 MCHC 33.2 g/dl (32.0-35.9) 06/25/18 07:00 RDW 17.2 % (11.9-15.9) H 06/25/18 07:00 Plt Count 151 K/MM3 (134-434) 06/25/18 07:00 MPV 10.9 fl (7.5-11.1) 06/25/18 07:00 Sodium 138 mmol/L (136-145) 06/25/18 07:00 Potassium 3.8 mmol/L (3.5-5.1) 06/25/18 07:00 Chloride 102 mmol/L (98-107) 06/25/18 07:00 Carbon Dioxide 27 mmol/L (21-32) 06/25/18 07:00 Anion Gap 9 MMOL/L (8-16) 06/25/18 07:00 BUN 16 mg/dL (7-18) 06/25/18 07:00 Creatinine 0.8 mg/dL (0.55-1.3) 06/25/18 07:00 Creat Clearance w eGFR > 60 (>60) 06/25/18 07:00 Random Glucose 95 mg/dL (74-106) 06/25/18 07:00 Calcium 8.3 mg/dL (8.5-10.1) L 06/25/18 07:00 Total Bilirubin 0.8 mg/dL (0.2-1) 06/25/18 07:00 AST 15 U/L (15-37) 06/25/18 07:00 ALT 19 U/L (13-61) 06/25/18 07:00 Alkaline Phosphatase 100 U/L (45-117) 06/25/18 07:00 Total Protein 7.6 g/dl (6.4-8.2) 06/25/18 07:00 Albumin 3.4 g/dl (3.4-5.0) 06/25/18 07:00 RPR Titer Nonreactive (NONREACTIVE) 06/25/18 07:00 HIV 1&2 Antibody Screen Negative 06/25/18 07:00 HIV P24 Antigen Negative 06/25/18 07:00 la bnoted Assessment: 06/26/18 10:23 withdrawal sx asthma Plan: continue detox nebulizer for asthma
[2018-06-26] MEDS: PRENATAL VITAMINS W/ FOLIC ACID TABLET (FP) PO SCH (10:45)
[2018-06-26] MEDS: LIDOCAINE 5% TOPICAL PATCH TP SCH (10:45)
[2018-06-26] MEDS: BUDESONIDE/FORMETEROL FUMARATE 80/4.5 mcg INHALER IH SCH ×2 (10:46→22:10)
[2018-06-26] MEDS: IBUPROFEN 600 MG TABLET (FP) PO PRN (10:47)
[2018-06-26] MEDS: ALBUTEROL SO4 0.083% IH SOL 2.5 MG/3 ML VIAL.NEB. NEB PRN (11:08)
[2018-06-26] MEDS: QUEtiapine FUMARATE 100 MG TABLET (FP) PO SCH (22:08)
[2018-06-26] MEDS: MELATONIN 5 MG TABLETS PO PRN (22:08)
[2018-06-26] MEDS: THIAMINE HCL 100 MG TABLET (FP) PO SCH (22:08)
[2018-06-26] MEDS: LIDOCAINE PATCH REMOVAL MC SCH (22:09)
[2018-06-27] MEDS: PATIENT'S OWN MEDICATION (NON-FORMULARY) (Lipase/Protease/Amylase [Creon Dr 24,000 Units C PO SCH ×2 (08:46→11:48)
[2018-06-27] MEDS: diazePAM 5 MG TABLET PO PRN ×2 (08:46→13:04)
[2018-06-27] MEDS: IBUPROFEN 600 MG TABLET (FP) PO PRN (09:53)
[2018-06-27] MEDS: LIDOCAINE 5% TOPICAL PATCH TP SCH (09:54)
[2018-06-27] MEDS: BUDESONIDE/FORMETEROL FUMARATE 80/4.5 mcg INHALER IH SCH (09:54)
[2018-06-27] MEDS: PRENATAL VITAMINS W/ FOLIC ACID TABLET (FP) PO SCH (09:55)
[2018-06-27] MEDS ORDERED: METHADONE HCL 5 MG TABLET (FOR DETOX USE ONLY) PO ONE (10:00)
[2018-06-27] MEDS: ALBUTEROL SO4 0.083% IH SOL 2.5 MG/3 ML VIAL.NEB. NEB PRN (10:14)
[2018-06-27 13:35] VITALS: BP 108/69; PULSE 120; TEMP 98.4
--- NOTE | 2018-06-27 19:07 | PN ---
BHS Progress Note (SOAP) Subjective: Tremors, Body Aches, Anxious. Objective: PATIENT A & O X 3, OBSERVED AMBULATING ON UNIT. IN NO ACUTE DISTRESS. 06/27/18 19:06 Vital Signs Temperature 98.4 F 06/27/18 13:34 Pulse Rate 120 H 06/27/18 13:34 Respiratory Rate 20 06/27/18 13:34 Blood Pressure 108/69 06/27/18 13:34 O2 Sat by Pulse Oximetry (%) Laboratory Tests 06/25/18 06/25/18 06/25/18 07:00 07:00 07:00 WBC 10.2 H RBC 5.46 Hgb 13.4 Hct 40.4 MCV 74.0 L MCH 24.6 L MCHC 33.2 RDW 17.2 H Plt Count 151 MPV 10.9 Sodium 138 Potassium 3.8 Chloride 102 Carbon Dioxide 27 Anion Gap 9 BUN 16 Creatinine 0.8 Creat Clearance w eGFR > 60 Random Glucose 95 Calcium 8.3 L Total Bilirubin 0.8 AST 15 ALT 19 Alkaline Phosphatase 100 Total Protein 7.6 Albumin 3.4 RPR Titer Nonreactive HIV 1&2 Antibody Screen HIV P24 Antigen 06/25/18 07:00 WBC RBC Hgb Hct MCV MCH MCHC RDW Plt Count MPV Sodium Potassium Chloride Carbon Dioxide Anion Gap BUN Creatinine Creat Clearance w eGFR Random Glucose Calcium Total Bilirubin AST ALT Alkaline Phosphatase Total Protein Albumin RPR Titer HIV 1&2 Antibody Screen Negative HIV P24 Antigen Negative LABS NOTED. Assessment: 06/27/18 19:06 WITHDRAWAL SYMPTOMS. Plan: CONTINUE DETOX.
--- NOTE | 2018-06-27 19:09 | DS ---
[facility] Detox Discharge Summary Admission Date: 06/24/18 Discharge Date: 06/27/18 - History Present History: Opioid Dependence, Sedative Dependence Additional Comments: PATIENT DOES NOT WISH TO REMAIN TO COMPLETE DETOX REGIMEN. RISKS OF LEAVING DETOX UNIT AGAINST MEDICAL ADVICE AND PRIOR TO COMPLETION OF DETOX REGIMEN EXPLAINED TO PATIENT. PATIENT ADVISED TO GO IMMEDIATELY TO NEAREST ER SHOULD ANY INTOLERABLE DETOX SYMPTOMS DEVELOP AT ANY TIME. PATIENT VERBALIZED UNDERSTANDING OF ALL INFORMATION / RECOMMENDATIONS PRESENTED TO HIM PRIOR TO DEPARTURE FROM DETOX UNIT. PATIENT LEFT DETOX UNIT IN STABLE MEDICAL CONDITION. Pertinent Past History: Cystic Fibrosis, Anxiety, Depression, Acid Reflux. - Physical Exam Results Vital Signs: Vital Signs Temperature 98.4 F 06/27/18 13:34 Pulse Rate 120 H 06/27/18 13:34 Respiratory Rate 20 06/27/18 13:34 Blood Pressure 108/69 06/27/18 13:34 O2 Sat by Pulse Oximetry (%) Pertinent Admission Physical Exam Findings: WITHDRAWAL SYMPTOMS. Laboratory Tests 06/25/18 06/25/18 06/25/18 07:00 07:00 07:00 WBC 10.2 H RBC 5.46 Hgb 13.4 Hct 40.4 MCV 74.0 L MCH 24.6 L MCHC 33.2 RDW 17.2 H Plt Count 151 MPV 10.9 Sodium 138 Potassium 3.8 Chloride 102 Carbon Dioxide 27 Anion Gap 9 BUN 16 Creatinine 0.8 Creat Clearance w eGFR > 60 Random Glucose 95 Calcium 8.3 L Total Bilirubin 0.8 AST 15 ALT 19 Alkaline Phosphatase 100 Total Protein 7.6 Albumin 3.4 RPR Titer Nonreactive HIV 1&2 Antibody Screen HIV P24 Antigen 06/25/18 07:00 WBC RBC Hgb Hct MCV MCH MCHC RDW Plt Count MPV Sodium Potassium Chloride Carbon Dioxide Anion Gap BUN Creatinine Creat Clearance w eGFR Random Glucose Calcium Total Bilirubin AST ALT Alkaline Phosphatase Total Protein Albumin RPR Titer HIV 1&2 Antibody Screen Negative HIV P24 Antigen Negative LABS NOTED. - Treatment Hospital Course: Detoxed Safely - Medication Discharge Medications: Ambulatory Orders Albuterol Sulfate Inhaler - [Ventolin HFA Inhaler -] 2 inh PO Q4H PRN #1 inhaler 04/11/16 Fluticasone/Salmeterol [Advair Hfa 115-21 Mcg Inhaler] 2 puff IH BID 11/26/16 Lipase/Protease/Amylase [Arti Hawkins 24,000 Units Capsule] 10 cap PO AC 11/26/16 Pregabalin [Lyrica -] 150 mg PO BID 06/24/18 Lipase/Protease/Amylase [Arti Hawkins 24,000 Units Capsule] 6 cap PO ASDIR 06/25/18 Lipase/Protease/Amylase [Creon Dr 24,000 Units Capsule] 10 cap PO TIDCM Quetiapine Fumarate [Seroquel] 100 tab PO HS #30 tablet 06/25/18 - Diagnosis (1) Sedative, hypnotic or anxiolytic dependence with withdrawal, uncomplicated Status: Acute (2) Anxiety and depression Status: Chronic (3) Benzodiazepine dependence Status: Chronic (4) Cystic fibrosis Status: Chronic (5) GERD (gastroesophageal reflux disease) Status: Chronic Qualifiers: Esophagitis presence: without esophagitis Qualified Code(s): K21.9 - Gastro -esophageal reflux disease without esophagitis (6) Opioid dependence with withdrawal Status: Chronic - AMA Did Patient Leave Against Medical Advice: Yes (PATIENT DID NOT WISH TO REMAIN TO COMPLETE DETOX REGIMEN.)
[2018-06-28] MEDS ORDERED: METHADONE HCL 10 MG TABLET (FOR DETOX USE ONLY) PO ONE (10:00)
[2018-06-29] MEDS ORDERED: METHADONE HCL 5 MG TABLET (FOR DETOX USE ONLY) PO ONE (06:00)
== END 2018-06-27 15:46 | disposition left against medical advice (07) | DRG 770 ==
LOC: YASAS 12:51 → Y3N 17:03
PROVIDERS: ADMIT Neuromusculoskeletal Medicine & OMM; ATTEND Neuromusculoskeletal Medicine & OMM
PROC: HZ2ZZZZ Detoxification Services for Substance Abuse Treatment (ICD-10-PCS; principal; 2018-06-24)
DX: F11.23 Opioid dependence with withdrawal (principal); F13.230 Sedative, hypnotic or anxiolytic dependence with withdrawal, uncomplicated; F41.9 Anxiety disorder, unspecified; F32.9 Major depressive disorder, single episode, unspecified; E84.9 Cystic fibrosis, unspecified; K21.9 Gastro-esophageal reflux disease without esophagitis; J45.909 Unspecified asthma, uncomplicated
CPT/HCPCS: 36415; 80053; 85027; 86593; 87389; 93005; 93010; 94640

== ENCOUNTER 2019-01-15 09:24 | Inpatient (IN) | payer OTHER | END 2019-01-20 06:45 | disposition home or self-care (01) | LOC: YASAS 09:24 → Y3N 11:30 ==

== ENCOUNTER 2020-01-09 10:51 | Inpatient (IN) | payer OTHER ==
--- NOTE | 2020-01-09 13:23 | BHS.RME ---
Substance Use & Tx History - Substance Use History Heroin Substance amount: 10 bags Frequency of use: Daily Substance route: Injection (ex: intravenous or skin popping) Date of Last Use: 01/08/20 Cocaine-Crack Substance amount: 20$ Frequency of use: Less than 3 times per week Substance route: Smoking Date of Last Use: 01/08/20 Klonopin Substance amount: 10 mgs Frequency of use: Daily Substance route: Oral Date of Last Use: 01/09/20 - Last Treatment Date of last treatment: [facility] 01/15/19 to 01/20/19 Where was last treatment: Detox Physical/Psych/Mental Status - Behavior Eye Contact: Normal - Cooperativeness Cooperativeness: Cooperative - Thinking Thought Processes: Logical Thought content: Future oriented - Physical Health Problems Is patient presently having any pain?: No Does patient presently have any injuries (include location): No Does patient currently have a fever: No COWS - Scale Resting Pulse: 1= [place] 81-100 Sweatin= Chills/Flushing Restless Observation: 1= Difficult to Sit Still Pupil Size: 1= Pupils >than Normal Bone or Joint Aches: 2= Severe Diffuse Aches Runny Nose/ Eye Tearin= Runny Nose/Eyes GI Upset > 30mins: 2= Nausea/Diarrhea Tremor Observation: 2= Slight Tremor Visible Yawning Observation: 2= >3x During Session Anxiety or Irritability: 2=Irritable/Anxious Goose Flesh Skin: 0=Smooth Skin COWS Score: 16 CIWA Nausea/Vomitin Muscle Tremors: 3 Anxiety: 3 Agitation: 2 Paroxysmal Sweats: 1-Minimal Palms Moist Orientation: 0-Oriented Tacttile Disturbances: 1-Very Mild Itch/Numbness Auditory Disturbances: 0-None Visual Disturbances: 0-None Headache: 2-Mild CIWA-Ar Total Score: 14
--- NOTE | 2020-01-09 13:35 | HP ---
COWS - Scale Resting Pulse: 1= [place] 81-100 Sweatin= Chills/Flushing Restless Observation: 1= Difficult to Sit Still Pupil Size: 1= Pupils >than Normal Bone or Joint Aches: 2= Severe Diffuse Aches Runny Nose/ Eye Tearin= Runny Nose/Eyes GI Upset > 30mins: 2= Nausea/Diarrhea Tremor Observation: 2= Slight Tremor Visible Yawning Observation: 2= >3x During Session Anxiety or Irritability: 2=Irritable/Anxious Goose Flesh Skin: 0=Smooth Skin COWS Score: 16 CIWA Score Nausea/Vomitin Muscle Tremors: 3 Anxiety: 3 Agitation: 2 Paroxysmal Sweats: 1-Minimal Palms Moist Orientation: 0-Oriented Tacttile Disturbances: 1-Very Mild Itch/Numbness Auditory Disturbances: 0-None Visual Disturbances: 0-None Headache: 2-Mild CIWA-Ar Total Score: 14 - Admission Criteria OASAS Guidelines: Admission for Medically Managed Detox: Requires at least one of the followin. CIWA greater than 12 2. Seizures within the past 24 hours 3. Delirium tremens within the past 24 hours 4. Hallucinations within the past 24 hours 5. Acute intervention needed for co occurring medical disorder 6. Acute intervention needed for co occurring psychiatric disorder 7. Severe withdrawal that cannot be handled at a lower level of care (continued vomiting, continued diarrhea, abnormal vital signs) requiring intravenous medication and/or fluids 8. 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 Pulmonary: Yes: Other (cystic fibrosis) Psych: Yes: Anxiety, Depression - Past Surgical History Additional Past Surgical History: right inguinal hernia repair at age of 42 years old - Smoking History Smoking history: Never smoked Have you smoked in the past 12 months: No - Alcohol/Substance Use Hx Alcohol Use: No History of Substance Use: reports: Cocaine, Heroin, Tranquilizers Date of Last Use: 01/08/20 - Social History Usual Living Arrangement: Yes: Other (homrless) Do you think of yourself as: Straight/Heterosexual ADL: Support Services Occupation: on disability History of Recent Travel: No Other Social History: on disability,homeless,no legal issue Admission ROS S - [facility] Chief Complaint: i need help to stop using heroin,cocaine,benzo Allergies/Adverse Reactions: Allergies Allergy/AdvReac Type Severity Reaction Status Date / Time erythromycin base Allergy Severe Verified 01/09/20 15:35 vancomycin Allergy Severe Verified 01/09/20 15:35 History of Present Illness: this 24 years old male with heroin dependence,cocaine abused,benzodiazepam,seeking detox Exam Limitations: No Limitations - Ebola screening Have you traveled outside of the country in the last 21 days: No Have you had contact with anyone from an Ebola affected area: No Have you been sick,other than usual withdrawal symptoms: No Do you have a fever: No - Review of Systems Constitutional: Chills, Loss of Appetite, Malaise, Night Sweats, Changes in sleep, Weakness EENT: reports: Nose Congestion Respiratory: reports: No Symptoms reported, Other (cystic fibrosis) Cardiac: reports: No Symptoms Reported GI: reports: Nausea, Vomiting, Abdominal cramping : reports: No Symptoms Reported Musculoskeletal: reports: Back Pain, Muscle Pain Integumentary: reports: Dryness Neuro: reports: Tremors Endocrine: reports: No Symptoms Reported Hematology: reports: No Symptoms Reported Psychiatric: reports: Anxious, Depressed Other Systems: Reviewed and Negative Patient History - Patient Medical History Hx Anemia: No Hx Asthma: No (CYSTIC FIBROSIS) Hx Chronic Obstructive Pulmonary Disease (COPD): No (left pneumothorax in 2011) Hx Cancer: No Hx Cardiac Disorders: No Hx Congestive Heart Failure: No Hx Hypertension: No Hx Hypercholesterolemia: No Hx Pacemaker: No HX Cerebrovascular Accident: No Hx Seizures: No Hx Dementia: No Hx Diabetes: No Hx Gastrointestinal Disorders: Yes (acid reflux) Hx Liver Disease: No Hx Genitourinary Disorders: No Hx Sexually Transmitted Disorders: No Hx Renal Disease (ESRD): No Hx Thyroid Disease: No Hx Human Immunodeficiency Virus (HIV): No (negative) Hx Hepatitis C: No (negative) Hx Depression: Yes (AND ANXIETY) Hx Suicide Attempt: No (denies) Hx Bipolar Disorder: No Hx Schizophrenia: No Other Medical History: no suicidal,no homicidal - Patient Surgical History Past Surgical History: Yes Hx Neurologic Surgery: No Hx Cataract Extraction: No Hx Cardiac Surgery: No Hx Lung Surgery: Yes (left pneumothorax at age 17) Hx Breast Surgery: No Hx Breast Biopsy: No Hx Abdominal Surgery: Yes (HERNIA REPAIR RIGHT) Hx Appendectomy: No Hx Cholecystectomy: No Hx Genitourinary Surgery: No Hx Section: No Hx Orthopedic Surgery: No Anesthesia Reaction: No - PPD History Previous Implant?: Yes Documented Results: Negative w/o proof Implanted On Prior [facility] Admission?: Yes Date: 06/26/18 Results: 0 mm PPD to be Administered?: Yes - Smoking Cessation Smoking history: Never smoked Have you smoked in the past 12 months: No Hx Chewing Tobacco Use: No - Substance & Tx. History Hx Alcohol Use: No Hx Substance Use: Yes Substance Use Type: Cocaine, Heroin, Tranquilizers Hx Substance Use Treatment: Yes (01/15/19 to 01/20/19 [facility]) - Substances abused Heroin Substance route: Injection Frequency: Daily Amount used: 10 nags Age of first use: 18 Date of last use: 01/08/20 Crack Substance route: Smoking Frequency: 1-2 times per week Amount used: 20$ Age of first use: 22 Date of last use: 01/08/20 Benzodiazepine (Klonopin) Substance route: Oral Frequency: Daily (10 mgs) Amount used: 10 mg Age of first use: 15 Date of last use: 01/09/20 Admission Physical Exam BHS - Vital Signs Vital Signs: t97.9,p91,bp 122/65,r18 - Physical General Appearance: Yes: Tremorous, Irritable, Sweating, Anxious HEENTM: Yes: Normal ENT Inspection, RUT, Pharynx Normal Respiratory: Yes: Lungs Clear Neck: Yes: Within Normal Limits, Supple, Trachea in good position Breast: Yes: Within Normal Limits Cardiology: Yes: Within Normal Limits, Regular Rhythm, Regular Rate, S1, S2 Abdominal: Yes: Within Normal Limits, Normal Bowel Sounds, Non Tender, Flat, Soft Genitourinary: Yes: Within Normal Limits Back: Yes: Muscle Spasm Musculoskeletal: Yes: Back pain, Muscle Pain Extremities: Yes: Tremors Neurological: Yes: performance test engineer II-XII NML intact, Fully Oriented, Alert, Motor Strength 5/5 Integumentary: Yes: Dry Lymphatic: Yes: Within Normal Limits - Diagnostic (1) Opioid dependence with withdrawal Current Visit: No Status: Acute (2) Anxiety and depression Current Visit: No Status: Acute (3) Sedative, hypnotic or anxiolytic dependence with withdrawal, uncomplicated Current Visit: No Status: Acute (4) Cystic fibrosis Current Visit: No Status: Chronic (5) IVDU (intravenous drug user) Current Visit: Yes Status: Acute (6) Insomnia Current Visit: Yes Status: Acute (7) Anxiety and depression Current Visit: Yes Status: Acute Cleared for Admission S - Detox or Rehab [facility] Level of Care: Medically Managed Detox Regimen/Protocol: Methadone/Valium Breathalyzer - Breathalyzer Breathalyzer: 0 Urine Drug Screen - Test Device Lot number: [id number] Expiration date: 10/07/20 - Control Is test valid?: Yes - Results Drug screen NEGATIVE: No Urine drug screen results: THC-Marijuana, FEN-Fentanyl, MOP-Opiates Inpatient Rehab Admission - Rehab Decision to Admit Inpatient rehab admission?: No
[2020-01-09] MEDS ORDERED: MAG HYDROX/AL HYDROX/SIMETH 30 ML UNIT-DOSE CUP PO PRN (14:04)
[2020-01-09] MEDS ORDERED: IBUPROFEN 400 MG TABLET (FP) PO PRN (14:04)
[2020-01-09] MEDS ORDERED: BISMUTH SUBSALICYLATE 524 MG/30 ML UD PO PRN (14:04)
[2020-01-09] MEDS ORDERED: ACETAMINOPHEN 325 MG TABLET (FP) PO PRN ×2 (14:04)
[2020-01-09] MEDS ORDERED: METHADONE HCL 10 MG TABLET (FOR DETOX USE ONLY) PO ONE (14:04)
[2020-01-09] MEDS ORDERED: cloNIDine HCL 0.1 MG TABLET PO PRN (14:04)
[2020-01-09] MEDS ORDERED: MAGNESIUM CITRATE 300 ML BOTTLE PO PRN (14:04)
[2020-01-09] MEDS ORDERED: ONDANSETRON *ODT* 4 MG TABLET SL ONE (14:04)
[2020-01-09] MEDS ORDERED: MENTHOL/PHENOL 1 EACH UD MM PRN (14:04)
[2020-01-09] MEDS ORDERED: MAGNESIUM HYDROX 2400MG/30ML ORAL SUSPENSION 30 ML CUP PO PRN (14:04)
[2020-01-09 15:44] VITALS: BMI 18.6
--- NOTE | 2020-01-09 15:50 | PN ---
[facility] Progress Note Note: patient found to have contraband,security called,nursing shore working supervisor informed ,Lovely Pina notified,patient will be contracted,
[2020-01-09] MEDS ORDERED: TUBERCULIN PPD 5 TU/0.1ML VIAL ID ONE (17:06)
[2020-01-09] MEDS: diazePAM 5 MG TABLET PO PRN (17:09)
[2020-01-09] MEDS: hydrOXYzine PAMOATE 25 MG CAPSULE (FP) PO SCH ×2 (17:26→22:08)
[2020-01-09] MEDS: THIAMINE HCL 100 MG TABLET (FP) PO SCH (22:08)
[2020-01-09] MEDS: MELATONIN 5 MG TABLETS PO SCH (22:08)
[2020-01-09] MEDS: diazePAM 5 MG TABLET PO SCH (22:08)
[2020-01-10] MEDS: hydrOXYzine PAMOATE 25 MG CAPSULE (FP) PO SCH ×5 (06:21→22:03)
[2020-01-10] MEDS: diazePAM 5 MG TABLET PO SCH ×3 (06:22→22:03)
[2020-01-10] MEDS ORDERED: METHADONE HCL 5 MG TABLET (FOR DETOX USE ONLY) ONE (09:32)
[2020-01-10] MEDS ORDERED: METHADONE HCL 10 MG TABLET (FOR DETOX USE ONLY) ONE (09:32)
[2020-01-10] MEDS ORDERED: METHADONE (DETOX) 20 MG, METHADONE (DETOX) 5 MG PO ONE (10:00)
--- NOTE | 2020-01-10 10:06 | CONSULT ---
[facility] Psychiatric Consult - Data Date of interview: 01/10/20 Admission source: Self-referred Identifying data: Mr Norman is a 24 years old single male, unemployed receiving disability, living with relatives seeking detox treatment for opioid, cocaine and benzodiazepine Substance Abuse History: Reports history of heroin, cocaine and xanax use. Refer to addiction counselor's summary for further information Medical History: Significant for GERD, cystic fibrosis, chronic pancreatitis, history of right inguinal hernia at age 2 and thoracotomy for left pneumothorax in 2011 Psychiatric History: Patient is known for multiple previous admissions to this facility. Reports that his first psychiatric contact occured when he started receiving outpatient psychiatric treatment at [facility]. He said that he was treated for depression, anxiety with Klonopin, Seroquel along with Suboxone for several months. Told short story writer that he stopped attending [facility] late 2018. Reports that he currently sees Ms Gorman, an FREIGHT TRAFFIC CONSULTANT practicing in [facility] and he is currently prescribed Klonopin 1 mg/tid, [id number] mg/tid and Remeron 7.5 mg/hs. During his most recent admission to this facility in January 2019, he saw TAHIR Pope and he was prescribed Seroquel 50 mg/hs. Denies previous psychiatric hospitalizations or suicide attempt. At present, reports feeling depressed, anxious and sleeping poorly. Requests to continue Remeron and Lyrica as currently prescribed Physical/Sexual Abuse/Trauma History: Denies history of abuse asa child or DV relationship as an adult Mental Status Exam - Mental Status Exam Alert and Oriented to: Time, Place, Person Cognitive Function: Fair Patient Appearance: Disheveled Mood: Depressed, Anxious Affect: Appropriate Patient Behavior: Cooperative Speech Pattern: Clear Voice Loudness: Normal Thought Process: Intact, Goal Oriented Thought Disorder: Not Present Hallucinations: Denies Suicidal Ideation: Denies Homicidal Ideation: Denies Insight/Judgement: Poor Sleep: Poorly Appetite: Poor Muscle strength/Tone: Normal Gait/Station: Normal Psychiatric Findings - Problem List ([place] 1, 2,3) (1) Mood disorder Current Visit: Yes Status: Chronic (2) Substance induced mood disorder Current Visit: No Status: Acute (3) Substance-induced sleep disorder Current Visit: No Status: Acute (4) Opioid dependence with withdrawal Current Visit: No Status: Acute (5) Cocaine dependence Current Visit: Yes Status: Acute (6) Sedative, hypnotic or anxiolytic dependence with withdrawal, uncomplicated Current Visit: No Status: Acute (7) Pancreatitis Current Visit: No Status: Resolved (8) Cystic fibrosis Current Visit: No Status: Chronic (9) GERD (gastroesophageal reflux disease) Current Visit: No Status: Chronic Qualifiers: Esophagitis presence: without esophagitis Qualified Code(s): K21.9 - Gastro-esophageal reflux disease without esophagitis - Initial Treatment Plan Initial Treatment Plan: 1) Continue Remeron 7.5 mg po HS and Lyrica 150 mg po TID. 2) Continue inpatient detoxification
[2020-01-10] MEDS: PRENATAL VITAMINS W/ FOLIC ACID TABLET (FP) PO SCH (10:19)
[2020-01-10] MEDS: METHOCARBAMOL 500 MG TABLET PO PRN (10:21)
[2020-01-10] MEDS: diazePAM 5 MG TABLET PO PRN ×2 (10:21→16:48)
[2020-01-10 12:31] LABS: HEMATOCRIT 35.4 % (35.4-49); HEMOGLOBIN 11.4 GM/dL (11.7-16.9); MCH 25.5 pg (25.7-33.7); MCHC 32.1 g/dl (32.0-35.9); MEAN CELL VOLUME 79.6 fl (80-96); MEAN PLT VOLUME 11.1 fl (7.5-11.1); PLATELET COUNT 106 K/MM3 (134-434); RBC 4.45 M/mm3 (4.00-5.60); RDW 17.7 % (11.9-15.9); WHITE BLOOD COUNT 6.2 K/mm3 (4.0-10.0)
[2020-01-10 12:44] LABS: ALBUMIN 2.5 g/dl (3.4-5.0); BILIRUBIN,TOTAL 0.5 mg/dL (0.2-1); BLOOD UREA NITROGEN 9.5 mg/dL (7-18); CALCIUM 8.7 mg/dL (8.5-10.1); CREATININE 0.8 mg/dL (0.55-1.3); POTASSIUM 3.6 mmol/L (3.5-5.1); TOT PROT 6.5 g/dl (6.4-8.2)
--- NOTE | 2020-01-10 13:13 | PN ---
S CIWA - CIWA Score Nausea/Vomitin-Mild Nausea/No Vomiting Muscle Tremors: 3 Anxiety: 3 Agitation: 2 Paroxysmal Sweats: No Perspiration Orientation: 0-Oriented Tacttile Disturbances: 1-Very Mild Itch/Numbness Auditory Disturbances: 0-None Visual Disturbances: 2-Mild Sensitivity Headache: 1-Very Mild CIWA-Ar Total Score: 13 [facility]HS COWS - Scale Resting Pulse: 1= [place] 81-100 Sweatin= Chills/Flushing Restless Observation: 0= Sits Still Pupil Size: 1= Pupils >than Normal Bone or Joint Aches: 2= Severe Diffuse Aches Runny Nose/ Eye Tearin= None GI Upset > 30mins: 1= Stomach Cramp Tremor Observation of Outstretched Hands: 2= Slight Tremor Visible Yawning Observation: 0= None Anxiety or Irritability: 2=Irritable/Anxious Goose Flesh Skin: 3=Piloerection COWS Score: 13 S Progress Note (SOAP) Subjective: 24 years old male admitted on 01/09/20 for benzo and opiate withdrawal sx management treating with valium and methadone detox regiments mr crowley is taking clonazepi 1 mg po tid daily last monthly filled on 12/31/19 last dose suboxone 11/2019 social with peers in day room Objective: 01/10/20 13:24 Vital Signs - 24 hr 01/09/20 01/09/20 01/09/20 15:40 17:05 20:52 Temperature 97.9 F 98.0 F 97.8 F Pulse Rate 91 H 76 68 Respiratory 18 18 16 Rate Blood Pressure 122/65 130/72 102/54 L O2 Sat by Pulse 96 95 Oximetry (%) 01/10/20 01/10/20 05:22 08:50 Temperature 98.4 F 98.4 F Pulse Rate 76 86 Respiratory 18 18 Rate Blood Pressure 108/62 130/82 O2 Sat by Pulse 98 Oximetry (%) Laboratory Tests 01/10/20 01/10/20 01/10/20 07:20 07:20 07:20 WBC 6.2 RBC 4.45 Hgb 11.4 L Hct 35.4 D MCV 79.6 L MCH 25.5 L MCHC 32.1 RDW 17.7 H Plt Count 106 L MPV 11.1 Sodium 140 Potassium 3.6 Chloride 109 H Carbon Dioxide 30 Anion Gap 1 L BUN 9.5 Creatinine 0.8 Est GFR (CKD-EPI)AfAm 142.89 Est GFR (CKD-EPI)NonAf 123.29 Random Glucose 96 Calcium 8.7 Total Bilirubin 0.5 AST 20 ALT 23 Alkaline Phosphatase 93 Total Protein 6.5 Albumin 2.5 L Syphilis Serology Non-reactive covid pending 01/10/20 13:25 Assessment: 01/10/20 13:26 benzo and opiate withdrawal Plan: valium and methadone regiments
[2020-01-10] MEDS: PREGABALIN 75 MG CAPSULE PO SCH ×2 (14:10→22:02)
[2020-01-10] MEDS: MIRTAZAPINE 15 MG TABLET (FP) PO SCH (22:02)
[2020-01-10] MEDS: MELATONIN 5 MG TABLETS PO SCH (22:03)
[2020-01-10] MEDS: THIAMINE HCL 100 MG TABLET (FP) PO SCH (22:03)
[2020-01-11] MEDS: PREGABALIN 75 MG CAPSULE PO SCH ×3 (05:58→22:17)
[2020-01-11] MEDS: hydrOXYzine PAMOATE 25 MG CAPSULE (FP) PO SCH ×5 (05:58→22:18)
[2020-01-11] MEDS: diazePAM 5 MG TABLET PO SCH ×2 (05:58→19:19)
[2020-01-11] MEDS: diazePAM 5 MG TABLET PO PRN ×3 (08:40→22:17)
[2020-01-11] MEDS ORDERED: METHADONE HCL 10 MG TABLET (FOR DETOX USE ONLY) PO ONE (10:00)
[2020-01-11] MEDS: PRENATAL VITAMINS W/ FOLIC ACID TABLET (FP) PO SCH (10:11)
[2020-01-11] MEDS ORDERED: ALBUTEROL SO4 HFA INHALER IH PRN (11:23)
[2020-01-11] MEDS ORDERED: PATIENT'S OWN MEDICATION (NON-FORMULARY) (Lipase/Protease/Amylase [Creon Dr 24,000 Units C PO SCH ×2 (11:30)
--- NOTE | 2020-01-11 11:37 | PN ---
[facility] CIWA - CIWA Score Nausea/Vomitin-No Nausea/No Vomiting Muscle Tremors: 3 Anxiety: 4-Mod. Anxious/Guarded Agitation: 4-Moderately Restless Paroxysmal Sweats: 2 Orientation: 0-Oriented Tacttile Disturbances: 0-None Auditory Disturbances: 0-None Visual Disturbances: 0-None Headache: 0-None Present CIWA-Ar Total Score: 13 S COWS - Scale Resting Pulse: 0= [place] 80 or Below Sweatin=Flushed/Facial Moisture Restless Observation: 3= Extraneous Movement Pupil Size: 0= Normal to Room Light Bone or Joint Aches: 1= Mild Discomfort Runny Nose/ Eye Tearin= None GI Upset > 30mins: 1= Stomach Cramp Tremor Observation of Outstretched Hands: 1= Tremor [place], Not Seen Yawning Observation: 0= None Anxiety or Irritability: 2=Irritable/Anxious Goose Flesh Skin: 0=Smooth Skin COWS Score: 10 S Progress Note (SOAP) Subjective: Pt reports he needs to be on his Creon. pt has a hx of Cystic Fibrosis and Pancreatitis. Has been on Creon in past admissions. Verified from [facility], pt takes Creon Delayed Release 24,000 units 10 capsules TID with meals and 6 capsules with each snack. Pt's refill was being ready at the time of this call and pt stated his family will pick it up and bring to him here in the hospital. c/o withdrawal sx- anxiety chills sweats stomach cramps intermittent sleep Objective: 01/11/20 11:38 Vital Signs - 24 hr 01/10/20 01/10/20 01/10/20 14:08 16:35 20:20 Temperature 98.2 F 98.4 F 98.2 F Pulse Rate 85 98 H 73 Respiratory 18 18 18 Rate Blood Pressure 126/77 109/69 132/68 O2 Sat by Pulse 96 97 Oximetry (%) 01/11/20 06:49 Temperature 97.9 F Pulse Rate 63 Respiratory 18 Rate Blood Pressure 114/77 O2 Sat by Pulse 97 Oximetry (%) Laboratory Tests 01/09/20 01/10/20 01/10/20 16:35 07:20 07:20 WBC RBC Hgb Hct MCV MCH MCHC RDW Plt Count MPV Sodium Potassium Chloride Carbon Dioxide Anion Gap BUN Creatinine Est GFR (CKD-EPI)AfAm Est GFR (CKD-EPI)NonAf Random Glucose Calcium Total Bilirubin AST ALT Alkaline Phosphatase Total Protein Albumin Syphilis Serology Non-reactive COVID-19 (NERISSA) Not detected HIV Ag/Ab Combo Qual Negative 01/10/20 01/10/20 07:20 07:20 WBC 6.2 RBC 4.45 Hgb 11.4 L Hct 35.4 D MCV 79.6 L MCH 25.5 L MCHC 32.1 RDW 17.7 H Plt Count 106 L MPV 11.1 Sodium 140 Potassium 3.6 Chloride 109 H Carbon Dioxide 30 Anion Gap 1 L BUN 9.5 Creatinine 0.8 Est GFR (CKD-EPI)AfAm 142.89 Est GFR (CKD-EPI)NonAf 123.29 Random Glucose 96 Calcium 8.7 Total Bilirubin 0.5 AST 20 ALT 23 Alkaline Phosphatase 93 Total Protein 6.5 Albumin 2.5 L Syphilis Serology COVID-19 (NERISSA) HIV Ag/Ab Combo Qual covid-19 not detected alert o x 3 nad oob ambulating with steady gait Assessment: 01/11/20 11:41 withdrawal sx Plan: continue detox increase po fluis maintain safety restart pancreatic enzymes as directed.
--- NOTE | 2020-01-11 13:03 | PN ---
[facility] Progress Note Note: Pt wants to wait for family to drop off own medication to get his pancreatic enzyme of 24,000 units. Spoke with the Pharmacist, Hayden who informed that pt's dose strength of 24,000 units is nonformulary on [facility] drug formulary.
[2020-01-11] MEDS: PATIENT'S OWN MEDICATION (NON-FORMULARY) (Lipase/Protease/Amylase [Creon Dr 24,000 Units C PO SCH ×2 (15:50→17:39)
[2020-01-11 21:12] LABS: PH,URINE 8.5 (5.0-8.0); URINE APPEARANCE CLEAR; URINE BILIRUBIN NEGATIVE (NEGATIVE); URINE COLOR YELLOW; URINE GLUCOSE (UA) NEGATIVE (NEGATIVE); URINE KETONE NEGATIVE (NEGATIVE); URINE LEUK ESTERASE NEGATIVE (NEGATIVE); URINE NITRITE NEGATIVE (NEGATIVE); URINE PROTEIN NEGATIVE (NEGATIVE); URINE UROBILINOGEN 0.2 mg/dL (0.2-1.0)
[2020-01-11] MEDS: PATIENT'S OWN MEDICATION (NON-FORMULARY) (Lipase/Protease/Amylase [Creon Dr 24,000 Units C PO PRN (21:14)
[2020-01-11] MEDS: THIAMINE HCL 100 MG TABLET (FP) PO SCH (22:18)
[2020-01-11] MEDS: MELATONIN 5 MG TABLETS PO SCH (22:18)
[2020-01-11] MEDS: MIRTAZAPINE 15 MG TABLET (FP) PO SCH (22:19)
[2020-01-12] MEDS ORDERED: diazePAM 5 MG TABLET PO ONE (06:00)
[2020-01-12] MEDS: PREGABALIN 75 MG CAPSULE PO SCH ×3 (07:22→21:39)
[2020-01-12] MEDS: PATIENT'S OWN MEDICATION (NON-FORMULARY) (Lipase/Protease/Amylase [Creon Dr 24,000 Units C PO SCH ×3 (07:23→17:13)
[2020-01-12] MEDS: hydrOXYzine PAMOATE 25 MG CAPSULE (FP) PO SCH ×5 (07:23→21:40)
[2020-01-12] MEDS: diazePAM 5 MG TABLET PO PRN ×2 (08:42→13:37)
[2020-01-12] MEDS ORDERED: METHADONE HCL 10 MG TABLET (FOR DETOX USE ONLY) ONE (09:24)
[2020-01-12] MEDS ORDERED: METHADONE HCL 5 MG TABLET (FOR DETOX USE ONLY) ONE (09:24)
--- NOTE | 2020-01-12 09:59 | PN ---
[facility] CIWA - CIWA Score Nausea/Vomitin-No Nausea/No Vomiting Muscle Tremors: 2 Anxiety: 4-Mod. Anxious/Guarded Agitation: 3 Paroxysmal Sweats: No Perspiration Orientation: 0-Oriented Tacttile Disturbances: 0-None Auditory Disturbances: 0-None Visual Disturbances: 0-None Headache: 0-None Present CIWA-Ar Total Score: 9 S COWS - Scale Resting Pulse: 0= [place] 80 or Below Sweatin= Chills/Flushing Restless Observation: 3= Extraneous Movement Pupil Size: 0= Normal to Room Light Bone or Joint Aches: 2= Severe Diffuse Aches Runny Nose/ Eye Tearin= Nasal Congestion GI Upset > 30mins: 1= Stomach Cramp Tremor Observation of Outstretched Hands: 1= Tremor [place], Not Seen Yawning Observation: 1= 1-2x During Session Anxiety or Irritability: 2=Irritable/Anxious Goose Flesh Skin: 0=Smooth Skin COWS Score: 12 [facility] Progress Note (SOAP) Subjective: c/o yawning "tossed/turned all night" anxiety stomach cramps watery eyes sniffles decreased appetite Objective: 01/12/20 09:59 Vital Signs - 24 hr 01/11/20 01/11/20 01/11/20 12:50 16:37 20:20 Temperature 98.4 F 98.0 F 98.0 F Pulse Rate 100 H 79 88 Respiratory 16 16 18 Rate Blood Pressure 127/76 115/61 128/82 O2 Sat by Pulse 97 95 Oximetry (%) 01/12/20 05:38 Temperature 97.7 F Pulse Rate 63 Respiratory 18 Rate Blood Pressure 128/82 O2 Sat by Pulse 95 Oximetry (%) Laboratory Tests 01/09/20 01/10/20 01/10/20 16:35 07:20 07:20 WBC RBC Hgb Hct MCV MCH MCHC RDW Plt Count MPV Sodium Potassium Chloride Carbon Dioxide Anion Gap BUN Creatinine Est GFR (CKD-EPI)AfAm Est GFR (CKD-EPI)NonAf Random Glucose Calcium Total Bilirubin AST ALT Alkaline Phosphatase Total Protein Albumin Urine Color Urine Appearance Urine pH Ur Specific [place] Urine Protein Urine Glucose (UA) Urine Ketones Urine Blood Urine Nitrite Urine Bilirubin Urine Urobilinogen Ur Leukocyte Esterase Syphilis Serology Non-reactive COVID-19 (NERISSA) Not detected HIV Ag/Ab Combo Qual Negative 01/10/20 01/10/20 01/11/20 07:20 07:20 17:33 WBC 6.2 RBC 4.45 Hgb 11.4 L Hct 35.4 D MCV 79.6 L MCH 25.5 L MCHC 32.1 RDW 17.7 H Plt Count 106 L MPV 11.1 Sodium 140 Potassium 3.6 Chloride 109 H Carbon Dioxide 30 Anion Gap 1 L BUN 9.5 Creatinine 0.8 Est GFR (CKD-EPI)AfAm 142.89 Est GFR (CKD-EPI)NonAf 123.29 Random Glucose 96 Calcium 8.7 Total Bilirubin 0.5 AST 20 ALT 23 Alkaline Phosphatase 93 Total Protein 6.5 Albumin 2.5 L Urine Color Yellow Urine Appearance Clear Urine pH 8.5 H D Ur Specific [place] 1.004 L Urine Protein Negative Urine Glucose (UA) Negative Urine Ketones Negative Urine Blood Negative Urine Nitrite Negative Urine Bilirubin Negative Urine Urobilinogen 0.2 Ur Leukocyte Esterase Negative Syphilis Serology COVID-19 (NERISSA) HIV Ag/Ab Combo Qual covid-19 not detected alert o x 3 nad oob ambulating with steady Assessment: 01/12/20 13:46 withdrawal sx Plan: cont detox increase po fluids maintain safety
[2020-01-12] MEDS ORDERED: METHADONE (DETOX) 10 MG, METHADONE (DETOX) 5 MG PO ONE (10:00)
[2020-01-12] MEDS: PRENATAL VITAMINS W/ FOLIC ACID TABLET (FP) PO SCH (10:38)
[2020-01-12] MEDS: METHOCARBAMOL 500 MG TABLET PO PRN ×2 (10:41→21:41)
[2020-01-12] MEDS: PATIENT'S OWN MEDICATION (NON-FORMULARY) (Lipase/Protease/Amylase [Creon Dr 24,000 Units C PO PRN ×2 (14:50→21:08)
[2020-01-12] MEDS: MIRTAZAPINE 15 MG TABLET (FP) PO SCH (21:40)
[2020-01-12] MEDS: MELATONIN 5 MG TABLETS PO SCH (21:40)
[2020-01-12] MEDS: THIAMINE HCL 100 MG TABLET (FP) PO SCH (21:40)
[2020-01-12] MEDS: BUDESONIDE/FORMETEROL FUMARATE 160/4.5 mcg INHALER IH SCH (22:16)
[2020-01-13] MEDS: hydrOXYzine PAMOATE 25 MG CAPSULE (FP) PO SCH ×5 (07:00→22:07)
[2020-01-13] MEDS: PATIENT'S OWN MEDICATION (NON-FORMULARY) (Lipase/Protease/Amylase [Creon Dr 24,000 Units C PO SCH ×3 (07:00→17:19)
[2020-01-13] MEDS: PREGABALIN 75 MG CAPSULE PO SCH ×3 (07:00→22:07)
[2020-01-13] MEDS ORDERED: METHADONE HCL 10 MG TABLET (FOR DETOX USE ONLY) PO ONE (10:00)
[2020-01-13] MEDS: PRENATAL VITAMINS W/ FOLIC ACID TABLET (FP) PO SCH (10:02)
--- NOTE | 2020-01-13 11:14 | PN ---
[facility] CIWA - CIWA Score Nausea/Vomitin-No Nausea/No Vomiting Muscle Tremors: 1-None Visible, but [place] Anxiety: 3 Agitation: 2 Paroxysmal Sweats: 1-Minimal Palms Moist Orientation: 0-Oriented Tacttile Disturbances: 0-None Auditory Disturbances: 0-None Visual Disturbances: 0-None Headache: 0-None Present CIWA-Ar Total Score: 7 S COWS - Scale Resting Pulse: 1= [place] 81-100 Sweatin= Chills/Flushing Restless Observation: 3= Extraneous Movement Pupil Size: 0= Normal to Room Light Bone or Joint Aches: 2= Severe Diffuse Aches Runny Nose/ Eye Tearin= None GI Upset > 30mins: 1= Stomach Cramp Tremor Observation of Outstretched Hands: 0= None Yawning Observation: 0= None Anxiety or Irritability: 0= None Goose Flesh Skin: 0=Smooth Skin COWS Score: 8 S Progress Note (SOAP) Subjective: Pt reports resolving withdrawal sx. Pt also shared information that he was on [facility]Suboxone MAT program on [address] [place] [address] before relapsing and came to detox. pt states he will go back to his Suboxone treatment after discharge. c/o anxiety chills stomach cramps/dyspepsia Objective: 01/13/20 11:15 Vital Signs - 24 hr 01/12/20 01/12/20 01/12/20 16:45 20:25 20:30 Temperature 98.0 F 98.2 F Pulse Rate 75 82 Respiratory 18 18 Rate Blood Pressure 110/53 L 114/74 O2 Sat by Pulse 95 Oximetry (%) 01/13/20 05:30 Temperature 98.0 F Pulse Rate 89 Respiratory 18 Rate Blood Pressure 97/82 O2 Sat by Pulse 97 Oximetry (%) Laboratory Tests 01/09/20 01/10/20 01/10/20 16:35 07:20 07:20 WBC RBC Hgb Hct MCV MCH MCHC RDW Plt Count MPV Sodium Potassium Chloride Carbon Dioxide Anion Gap BUN Creatinine Est GFR (CKD-EPI)AfAm Est GFR (CKD-EPI)NonAf Random Glucose Calcium Total Bilirubin AST ALT Alkaline Phosphatase Total Protein Albumin Urine Color Urine Appearance Urine pH Ur Specific [place] Urine Protein Urine Glucose (UA) Urine Ketones Urine Blood Urine Nitrite Urine Bilirubin Urine Urobilinogen Ur Leukocyte Esterase Syphilis Serology Non-reactive COVID-19 (NERISSA) Not detected HIV Ag/Ab Combo Qual Negative 01/10/20 01/10/20 01/11/20 07:20 07:20 17:33 WBC 6.2 RBC 4.45 Hgb 11.4 L Hct 35.4 D MCV 79.6 L MCH 25.5 L MCHC 32.1 RDW 17.7 H Plt Count 106 L MPV 11.1 Sodium 140 Potassium 3.6 Chloride 109 H Carbon Dioxide 30 Anion Gap 1 L BUN 9.5 Creatinine 0.8 Est GFR (CKD-EPI)AfAm 142.89 Est GFR (CKD-EPI)NonAf 123.29 Random Glucose 96 Calcium 8.7 Total Bilirubin 0.5 AST 20 ALT 23 Alkaline Phosphatase 93 Total Protein 6.5 Albumin 2.5 L Urine Color Yellow Urine Appearance Clear Urine pH 8.5 H D Ur Specific [place] 1.004 L Urine Protein Negative Urine Glucose (UA) Negative Urine Ketones Negative Urine Blood Negative Urine Nitrite Negative Urine Bilirubin Negative Urine Urobilinogen 0.2 Ur Leukocyte Esterase Negative Syphilis Serology COVID-19 (NERISSA) HIV Ag/Ab Combo Qual Assessment: 01/13/20 11:15 withdrawal sx Plan: cont detox increase po fluids maintain safety
[2020-01-13] MEDS: BUDESONIDE/FORMETEROL FUMARATE 160/4.5 mcg INHALER IH SCH ×2 (11:51→22:08)
[2020-01-13] MEDS: PATIENT'S OWN MEDICATION (NON-FORMULARY) (Lipase/Protease/Amylase [Creon Dr 24,000 Units C PO PRN ×2 (13:30→22:11)
[2020-01-13] MEDS: METHOCARBAMOL 500 MG TABLET PO PRN (13:56)
[2020-01-13] MEDS: MELATONIN 5 MG TABLETS PO SCH (22:07)
[2020-01-13] MEDS: MIRTAZAPINE 15 MG TABLET (FP) PO SCH (22:07)
[2020-01-13] MEDS: THIAMINE HCL 100 MG TABLET (FP) PO SCH (22:08)
[2020-01-14] MEDS ORDERED: METHADONE HCL 5 MG TABLET (FOR DETOX USE ONLY) PO ONE (06:00)
[2020-01-14] MEDS: hydrOXYzine PAMOATE 25 MG CAPSULE (FP) PO SCH ×2 (06:11→10:45)
[2020-01-14] MEDS: PREGABALIN 75 MG CAPSULE PO SCH (06:11)
[2020-01-14 06:25] VITALS: BP 109/62; PULSE 62; TEMP 97.8
--- NOTE | 2020-01-14 08:25 | DS ---
[facility] Detox Discharge Summary Admission Date: 01/09/20 Discharge Date: 01/14/20 - History Present History: Cannabis Dependence, Cocaine Dependence, Opioid Dependence, Sedative Dependence Additional Comments: Pt has own meds and will follow up with his provider at [facility] on [address] [place] [address] for medical management. Pertinent Past History: Cystic fibrosis Right Inguinal Hernia Repair GERD - Physical Exam Results Vital Signs: Vital Signs Temperature 97.8 F 01/14/20 05:31 Pulse Rate 62 01/14/20 05:31 Respiratory Rate 18 01/14/20 05:31 Blood Pressure 109/62 01/14/20 05:31 O2 Sat by Pulse Oximetry (%) 97 01/14/20 05:31 alert o x 3 nad oob ambulating with steady gait cardiac:s1 s2, rrr lungs:ctab abdomen:flat,+bs,nt,nd extremities;no edema;skin intact. Pertinent Admission Physical Exam Findings: Laboratory Tests 01/09/20 01/10/20 01/10/20 16:35 07:20 07:20 WBC RBC Hgb Hct MCV MCH MCHC RDW Plt Count MPV Sodium Potassium Chloride Carbon Dioxide Anion Gap BUN Creatinine Est GFR (CKD-EPI)AfAm Est GFR (CKD-EPI)NonAf Random Glucose Calcium Total Bilirubin AST ALT Alkaline Phosphatase Total Protein Albumin Urine Color Urine Appearance Urine pH Ur Specific [place] Urine Protein Urine Glucose (UA) Urine Ketones Urine Blood Urine Nitrite Urine Bilirubin Urine Urobilinogen Ur Leukocyte Esterase Syphilis Serology Non-reactive COVID-19 (NERISSA) Not detected HIV Ag/Ab Combo Qual Negative 01/10/20 01/10/20 01/11/20 07:20 07:20 17:33 WBC 6.2 RBC 4.45 Hgb 11.4 L Hct 35.4 D MCV 79.6 L MCH 25.5 L MCHC 32.1 RDW 17.7 H Plt Count 106 L MPV 11.1 Sodium 140 Potassium 3.6 Chloride 109 H Carbon Dioxide 30 Anion Gap 1 L BUN 9.5 Creatinine 0.8 Est GFR (CKD-EPI)AfAm 142.89 Est GFR (CKD-EPI)NonAf 123.29 Random Glucose 96 Calcium 8.7 Total Bilirubin 0.5 AST 20 ALT 23 Alkaline Phosphatase 93 Total Protein 6.5 Albumin 2.5 L Urine Color Yellow Urine Appearance Clear Urine pH 8.5 H D Ur Specific [place] 1.004 L Urine Protein Negative Urine Glucose (UA) Negative Urine Ketones Negative Urine Blood Negative Urine Nitrite Negative Urine Bilirubin Negative Urine Urobilinogen 0.2 Ur Leukocyte Esterase Negative Syphilis Serology COVID-19 (NERISSA) HIV Ag/Ab Combo Qual - Treatment Hospital Course: Detox Protocol Followed, Detoxed Safely, Responded well, Discharged Condition Good, Rehab Referral Accepted Patient has Accepted a Rehab Referral to: [facility] Rehab - Medication Discharge Medications: Ambulatory Orders Pregabalin [Lyrica -] 150 mg PO TID 06/24/18 Lipase/Protease/Amylase [Arti Hawkins 24,000 Units Capsule] 5 cap PO ASDIR 06/25/18 Lipase/Protease/Amylase [Arti Hawkins 24,000 Units Capsule] 10 cap PO TIDCM 06/25/18 Quetiapine Fumarate [Seroquel -] 100 tab PO HS #30 tablet 06/25/18 Albuterol Sulfate Inhaler - [Ventolin HFA Inhaler -] 2 inh PO Q4H PRN 01/15/19 Budesonide/Formeterol Fumarate [SYMBICORT 160/4.5mcg -] 1 inh PO BID 01/15/19 - Diagnosis (1) 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 (2) IVDU (intravenous drug user) Status: Chronic (3) Cocaine dependence Status: Acute Qualifiers: Substance use status: in withdrawal Qualified Code(s): F14.23 - Cocaine dependence with withdrawal (4) Cystic fibrosis Status: Chronic (5) Sedative, hypnotic or anxiolytic dependence with withdrawal, uncomplicated Status: Acute (6) GERD (gastroesophageal reflux disease) Status: Chronic Qualifiers: Esophagitis presence: esophagitis presence not specified Qualified Code(s): K21.9 - Gastro-esophageal reflux disease without esophagitis (7) Opioid dependence with withdrawal Status: Acute (8) Weight loss Status: Acute - AMA Did Patient Leave Against Medical Advice: No
[2020-01-14] MEDS: PATIENT'S OWN MEDICATION (NON-FORMULARY) (Lipase/Protease/Amylase [Creon Dr 24,000 Units C PO SCH (08:37)
[2020-01-14] MEDS: PRENATAL VITAMINS W/ FOLIC ACID TABLET (FP) PO SCH (10:44)
[2020-01-14] MEDS: BUDESONIDE/FORMETEROL FUMARATE 160/4.5 mcg INHALER IH SCH (10:44)
== END 2020-01-14 10:15 | disposition home or self-care (01) | DRG 773 ==
LOC: YASAS 10:51 → Y5N DETOX 16:27
PROVIDERS: ADMIT Allergy & Immunology; ATTEND Allergy & Immunology
PROC: HZ2ZZZZ Detoxification Services for Substance Abuse Treatment (ICD-10-PCS; principal; 2020-01-09)
DX: F11.23 Opioid dependence with withdrawal (principal); F13.230 Sedative, hypnotic or anxiolytic dependence with withdrawal, uncomplicated; F14.23 Cocaine dependence with withdrawal; F39 Unspecified mood [affective] disorder; F19.24 Other psychoactive substance dependence with psychoactive substance-induced mood disorder; F19.282 Other psychoactive substance dependence with psychoactive substance-induced sleep disorder; F41.9 Anxiety disorder, unspecified; F32.9 Major depressive disorder, single episode, unspecified; K21.9 Gastro-esophageal reflux disease without esophagitis; K86.9 Disease of pancreas, unspecified; G47.00 Insomnia, unspecified; R63.4 Abnormal weight loss; E84.9 Cystic fibrosis, unspecified; Z87.19 Personal history of other diseases of the digestive system; Z88.1 Allergy status to other antibiotic agents; Z59.0 Homelessness
CPT/HCPCS: 36415; 80053; 81003; 85027; 86780; 87389; U0003

== ENCOUNTER 2020-02-12 08:50 | Inpatient (IN) | payer OTHER ==
--- NOTE | 2020-02-12 09:01 | BHS.RME ---
Substance Use & Tx History - Substance Use History Heroin Substance amount: 5-8 bags Xanax Substance amount: 2mg - 3 tabs Frequency of use: Daily Substance route: Oral Date of Last Use: 02/10/20 - Last Treatment Date of last treatment: 01/08-01/14/20 Treatment type: Substance Use Disorder (ARJUN) Where was last treatment: Detox Physical/Psych/Mental Status - Behavior General Behavior: Increased activity (restlessness, agitation) Eye Contact: Normal - Cooperativeness Cooperativeness: Cooperative - Thinking Thought Processes: Tight, Logical, Goal Directed - Physical Health Problems Is patient presently having any pain?: No Does patient presently have any injuries (include location): No Does patient currently have a fever: No Is patient : No COWS - Scale Resting Pulse: 2= NV 101-120 Sweatin= Chills/Flushing Restless Observation: 1= Difficult to Sit Still Pupil Size: 1= Pupils >than Normal Bone or Joint Aches: 2= Severe Diffuse Aches Runny Nose/ Eye Tearin= Runny Nose/Eyes GI Upset > 30mins: 1= Stomach Cramp Tremor Observation: 1= Tremor [place], Not Seen Yawning Observation: 1= 1-2x During Session Anxiety or Irritability: 1=Feels Anxious/Irritable Goose Flesh Skin: 0=Smooth Skin COWS Score: 13 CIWA Nausea/Vomitin Muscle Tremors: 1-None Visible, but [place] Anxiety: 3 Agitation: 3 Paroxysmal Sweats: 1-Minimal Palms Moist Orientation: 0-Oriented Tacttile Disturbances: 0-None Auditory Disturbances: 0-None Visual Disturbances: 0-None Headache: 2-Mild CIWA-Ar Total Score: 13
--- NOTE | 2020-02-12 10:43 | HP ---
COWS - Scale Resting Pulse: 2= [place] 101-120 Sweatin= Chills/Flushing Restless Observation: 1= Difficult to Sit Still Pupil Size: 1= Pupils >than Normal Bone or Joint Aches: 2= Severe Diffuse Aches Runny Nose/ Eye Tearin= Runny Nose/Eyes GI Upset > 30mins: 1= Stomach Cramp Tremor Observation: 1= Tremor [place], Not Seen Yawning Observation: 1= 1-2x During Session Anxiety or Irritability: 1=Feels Anxious/Irritable Goose Flesh Skin: 0=Smooth Skin COWS Score: 13 CIWA Score Nausea/Vomitin Muscle Tremors: 1-None Visible, but [place] Anxiety: 3 Agitation: 3 Paroxysmal Sweats: 1-Minimal Palms Moist Orientation: 0-Oriented Tacttile Disturbances: 0-None Auditory Disturbances: 0-None Visual Disturbances: 0-None Headache: 2-Mild CIWA-Ar Total Score: 13 - Admission Criteria OASAS Guidelines: Admission for Medically Managed Detox: Requires at least one of the followin. CIWA greater than 12 2. Seizures within the past 24 hours 3. Delirium tremens within the past 24 hours 4. Hallucinations within the past 24 hours 5. Acute intervention needed for co occurring medical disorder 6. Acute intervention needed for co occurring psychiatric disorder 7. Severe withdrawal that cannot be handled at a lower level of care (continued vomiting, continued diarrhea, abnormal vital signs) requiring intravenous medication and/or fluids 8. Admitting History and Physical - Past Medical History [employer]: Yes: Syncope Pulmonary: Yes: Other (cystic fibrosis) Psych: Yes: Anxiety, Depression - Smoking History Smoking history: Never smoked Have you smoked in the past 12 months: No - Alcohol/Substance Use Hx Alcohol Use: No History of Substance Use: reports: Cocaine, Heroin, Tranquilizers Date of Last Use: 01/08/20 - Social History ADL: Support Services Occupation: on disability History of Recent Travel: No Admission ROS [facility] Chief Complaint: "I would like to get off the streets and get clean and stop suffering through this drug addiction." Allergies/Adverse Reactions: Allergies Allergy/AdvReac Type Severity Reaction Status Date / Time erythromycin base Allergy Severe Verified 02/12/20 10:11 vancomycin Allergy Severe Verified 02/12/20 10:11 History of Present Illness: 24 year old male with history of opioid dependence with withdrawal and sedative dependence with withdrawal. Patient was last here from 01/08-01/13/20 completed detox and then went to [facility] but upon discharged he immediately relapsed after 2 weeks. - Substance Use History Heroin Substance amount: 5-8 bags daily IV, started at age 16 and last used yesterday. He has overdose once, 3 years ago, and does carry narcan on occasion Xanax Substance amount: 2mg - 3 tabs Frequency of use: Daily Substance route: Oral Date of Last Use: 02/10/20 THC smokes sporadically - Last Treatment Date of last treatment: 01/08-01/14/20 Treatment type: Substance Use Disorder (ARJUN) Where was last treatment: Detox PMH: Cystic Fibrosis Psurg: None Psych: Anxiety Disorder and Depression on Remeron He is homeless and living on the streets and has no legal issues pending. CIWA=13 COWS=13 Urine Tox: THC, FEN, MOP, REYES Patient meets criteria for detox as he has had failures and has poor insight into his disorder. Also he has poor recovery environment and untreated anxiety disorder and complicated medical co-morbidity. Exam Limitations: No Limitations - Ebola screening Have you traveled outside of the country in the last 21 days: No Have you had contact with anyone from an Ebola affected area: No Have you been sick,other than usual withdrawal symptoms: No Do you have a fever: No - Review of Systems Constitutional: Chills, Diaphoresis, Unintentional Wgt. Loss EENT: reports: No Symptoms Reported Respiratory: reports: No Symptoms reported Cardiac: reports: No Symptoms Reported GI: reports: No Symptoms Reported : reports: No Symptoms Reported Musculoskeletal: reports: No Symptoms Reported Integumentary: reports: No Symptoms Reported Neuro: reports: Headache, Tremors Endocrine: reports: No Symptoms Reported Hematology: reports: No Symptoms Reported Psychiatric: reports: Judgement Intact, Mood/Affect Appropiate, Orientated x3, Agitated, Anxious Other Systems: Reviewed and Negative Patient History - Patient Medical History Hx Anemia: No Hx Asthma: Yes Hx Chronic Obstructive Pulmonary Disease (COPD): No Hx Cancer: No Hx Cardiac Disorders: No Hx Congestive Heart Failure: No Hx Hypertension: No Hx Hypercholesterolemia: No Hx Pacemaker: No HX Cerebrovascular Accident: No Hx Seizures: No Hx Dementia: No Hx Diabetes: No Hx Gastrointestinal Disorders: Yes (acid reflux) Hx Liver Disease: No Hx Genitourinary Disorders: No Hx Sexually Transmitted Disorders: No Hx Renal Disease (ESRD): No Hx Thyroid Disease: No Hx Human Immunodeficiency Virus (HIV): No (negative) Hx Hepatitis C: No (negative) Hx Depression: Yes (Related to chronic illness) Hx Suicide Attempt: No Hx Bipolar Disorder: No Hx Schizophrenia: No - Patient Surgical History Past Surgical History: Yes Hx Neurologic Surgery: No Hx Cataract Extraction: No Hx Cardiac Surgery: No Hx Lung Surgery: Yes (left pneumothorax at age 17) Hx Breast Surgery: No Hx Breast Biopsy: No Hx Abdominal Surgery: Yes (HERNIA REPAIR RIGHT AGE 2) Hx Appendectomy: No Hx Cholecystectomy: No Hx Genitourinary Surgery: No Hx Section: No Hx Orthopedic Surgery: No Anesthesia Reaction: No - PPD History Previous Implant?: Yes Documented Results: Negative w/proof Implanted On Prior [facility] Admission?: Yes Date: 01/11/20 Results: 2MM - Smoking Cessation Smoking history: Never smoked Have you smoked in the past 12 months: No Hx Chewing Tobacco Use: No - Substances abused Alprazolam (Xanax) Substance route: Oral Frequency: Daily Amount used: 2-3MG TABS Age of first use: 15 Date of last use: 02/10/20 Heroin Substance route: Injection Frequency: Daily Amount used: 5-8BAGS Age of first use: 16 Date of last use: 02/11/20 [facility] - Vital Signs Vital Signs: Vital Signs - 24 hr 02/12/20 10:23 Temperature 99.5 F Pulse Rate 120 H Respiratory 20 Rate Blood Pressure 120/69 Cleared for [facility]mission [facility] - [facility]ox or [facility]hab [facility] Level of Care: Medically Managed Detox Regimen/Protocol: Methadone, Valium Claeared for Rehab Admission: No Screened but not Admitted - Documentation of Visit Screened but not Admitted: No Breathalyzer - Breathalyzer Breathalyzer: 0 Vital Signs - Vital Signs Vital signs refused: No Temperature: 99.5 F Pulse Rate: 120 Respiratory Rate: 20 Blood Pressure: 120/69 BP Location: Left Arm Blood Pressure position: Sitting - Height Height: 6 ft 1 in - Weight Weight: 150 lb Weight measurement method: Standing scale - BMI Body Mass Index (BMI): 19.8 - Bowel Function Bowel Movement: No Urine Drug Screen - Test Device Lot number: [id number] Expiration date: 01/11/22 - Control Is test valid?: Yes - Results Drug screen NEGATIVE: No Urine drug screen results: THC-Marijuana, REYES-Cocaine, FEN-Fentanyl, MOP-Opiates Inpatient Rehab Admission - Rehab Decision to Admit Inpatient rehab admission?: No
[2020-02-12 10:51] VITALS: BMI 19.8
[2020-02-12] MEDS ORDERED: MAG HYDROX/AL HYDROX/SIMETH 30 ML UNIT-DOSE CUP PO PRN (10:51)
[2020-02-12] MEDS ORDERED: cloNIDine HCL 0.1 MG TABLET PO PRN (10:51)
[2020-02-12] MEDS ORDERED: ACETAMINOPHEN 325 MG TABLET (FP) PO PRN ×2 (10:51)
[2020-02-12] MEDS ORDERED: METHADONE HCL 10 MG TABLET (FOR DETOX USE ONLY) PO ONE (10:51)
[2020-02-12] MEDS ORDERED: MAGNESIUM HYDROX 2400MG/30ML ORAL SUSPENSION 30 ML CUP PO PRN (10:51)
[2020-02-12] MEDS ORDERED: MENTHOL/PHENOL 1 EACH UD MM PRN (10:51)
[2020-02-12] MEDS ORDERED: NICOTINE POLACRILEX 2 MG GUM BUC PRN (10:51)
[2020-02-12] MEDS ORDERED: MAGNESIUM CITRATE 300 ML BOTTLE PO PRN (10:51)
[2020-02-12] MEDS ORDERED: METHOCARBAMOL 500 MG TABLET PO PRN (10:51)
[2020-02-12] MEDS ORDERED: ONDANSETRON *ODT* 4 MG TABLET SL ONE (10:51)
[2020-02-12] MEDS ORDERED: BISMUTH SUBSALICYLATE 524 MG/30 ML UD PO PRN (10:51)
[2020-02-12] MEDS ORDERED: ALBUTEROL SO4 HFA INHALER IH PRN (10:55)
[2020-02-12] MEDS ORDERED: PATIENT'S OWN MEDICATION (NON-FORMULARY) (Lipase/Protease/Amylase [Creon Dr 24,000 Units C PO PRN (11:00)
[2020-02-12] MEDS: NICOTINE 7 MG/24 HOURS TOPICAL PATCH TD SCH (12:25)
[2020-02-12] MEDS ORDERED: hydrOXYzine PAMOATE 25 MG CAPSULE (FP) PO SCH (14:00)
[2020-02-12] MEDS: CREON 24000 UNIT PO SCH ×2 (14:06→18:37)
[2020-02-12] MEDS: PREGABALIN 75 MG CAPSULE PO SCH ×2 (14:56→22:26)
[2020-02-12] MEDS: diazePAM 5 MG TABLET PO SCH ×2 (14:56→22:26)
[2020-02-12] MEDS: IBUPROFEN 400 MG TABLET (FP) PO PRN ×2 (15:44→23:43)
[2020-02-12 15:53] LABS: HEMATOCRIT 40.7 % (35.4-49); HEMOGLOBIN 13.1 GM/dL (11.7-16.9); MCH 25.9 pg (25.7-33.7); MCHC 32.2 g/dl (32.0-35.9); MEAN CELL VOLUME 80.3 fl (80-96); MEAN PLT VOLUME 11.1 fl (7.5-11.1); PLATELET COUNT 76 K/MM3 (134-434); RBC 5.07 M/mm3 (4.00-5.60); RDW 17.3 % (11.9-15.9); WHITE BLOOD COUNT 6.7 K/mm3 (4.0-10.0)
[2020-02-12 15:58] LABS: ALBUMIN 3.2 g/dl (3.4-5.0); BILIRUBIN,TOTAL 0.7 mg/dL (0.2-1); BLOOD UREA NITROGEN 7.3 mg/dL (7-18); CALCIUM 8.4 mg/dL (8.5-10.1); CREATININE 0.8 mg/dL (0.55-1.3); POTASSIUM 3.8 mmol/L (3.5-5.1)
[2020-02-12] MEDS: diazePAM 5 MG TABLET PO PRN (19:25)
[2020-02-12] MEDS: PATIENT'S OWN MEDICATION (NON-FORMULARY) (Lipase/Protease/Amylase [Creon Dr 24,000 Units C PO SCH (21:21)
[2020-02-12] MEDS ORDERED: PATIENT'S OWN MEDICATION (NON-FORMULARY) (Lipase/Protease/Amylase [Creon Dr 24,000 Units C PO SCH (22:00)
[2020-02-12] MEDS: MELATONIN 5 MG TABLETS PO SCH (22:26)
[2020-02-12] MEDS: THIAMINE HCL 100 MG TABLET (FP) PO SCH (22:26)
[2020-02-12] MEDS: BUDESONIDE/FORMETEROL FUMARATE 160/4.5 mcg INHALER IH SCH (22:26)
[2020-02-13] MEDS: diazePAM 5 MG TABLET PO SCH ×3 (05:44→22:45)
[2020-02-13] MEDS: PREGABALIN 75 MG CAPSULE PO SCH ×3 (05:44→22:45)
[2020-02-13] MEDS ORDERED: METHADONE HCL 5 MG TABLET (FOR DETOX USE ONLY) ONE (09:29)
[2020-02-13] MEDS ORDERED: METHADONE HCL 10 MG TABLET (FOR DETOX USE ONLY) ONE (09:30)
[2020-02-13] MEDS ORDERED: METHADONE (DETOX) 20 MG, METHADONE (DETOX) 5 MG PO ONE (10:00)
[2020-02-13] MEDS: CREON 24000 UNIT PO SCH ×3 (10:10→16:59)
[2020-02-13] MEDS: NICOTINE 7 MG/24 HOURS TOPICAL PATCH TD SCH (10:10)
[2020-02-13] MEDS: PRENATAL VITAMINS W/ FOLIC ACID TABLET (FP) PO SCH (10:11)
[2020-02-13] MEDS: BUDESONIDE/FORMETEROL FUMARATE 160/4.5 mcg INHALER IH SCH ×2 (10:11→23:49)
[2020-02-13] MEDS: diazePAM 5 MG TABLET PO PRN ×3 (10:12→19:43)
--- NOTE | 2020-02-13 10:53 | CONSULT ---
[facility] Psychiatric Consult - Data Date of interview: 02/13/20 Admission source: [facility] Identifying data: Readmission to [facility] at [address] [place] [address] for this 24 y/o male self-referred for detoxification treatment. ARJUN issues : heroin, fentanyl, benzodiazepine (clonazepam), cannabis, phencyclidine (occasional use). Patient is single, no dependents, domiciled (lives with relatives),unemployed and supported on SSI benefits. Substance Abuse History: Discussed with [facility] patient. ARJUN profile as follows : Heroin. Substance amount: 5-8 bags daily IV, started at age 16 and last used yesterday. He has overdose once, 3 years ago, and does carry narcan on occasion. Xanax. Substance amount: 2mg - 3 tabs. Frequency of use: Daily. Substance route: Oral. Date of Last Use: 02/10/20. THC smokes sporadically. Smoking history: Never smoked. Have you smoked in the past 12 months: No. Hx Chewing Tobacco Use: No. - Substances abused. Alprazolam (Xanax). Substance route: Oral. Frequency: Daily. Amount used: 2-3MG TABS. Age of first use: 15. Date of last use: 02/10/20. Heroin. Substance route: Injection. Frequency: Daily. Amount used: 5-8 BAGS. Age of first use: 16. Date of last use: 02/11/20 Medical History: Medical history is remarkable for thoracotomy in 2012 (left pneumothorax), GERD, cystic fibrosis and antecedent of right inguinal herniorraphy. History of 3-4 overdoses with heroin (accidental). Psychiatric History: Patient denies history of psychiatric hospitalizations. Mr Norman is currently seeing a psychiatric nurse practitioner, Ms Gorman in [facility], for medication management (klonopin 1 mg/tid + lyrica 150 mg/tid + remeron 7.5 mg/hs + seroquel 100 mg/hs). Diagnosed with Anxiety Disorder. Patient denies history of suicide attempts. Physical/Sexual Abuse/Trauma History: Patient denies. Additional Comment: Urine drug screen results: THC-Marijuana, REYES-Cocaine, FEN- Fentanyl, MOP-Opiates. Noted. Mental Status Exam - Mental Status Exam Alert and Oriented to: Time, Place, Person Cognitive Function: Good Patient Appearance: Disheveled Mood: Nervous, Withdrawn Affect: Appropriate, Mood Congruent, Normal Range Patient Behavior: Fatigued, Appropriate, Cooperative Speech Pattern: Clear, Appropriate Voice Loudness: Normal Thought Process: Intact, Goal Oriented Thought Disorder: Not Present Hallucinations: Denies Suicidal Ideation: Denies Homicidal Ideation: Denies Insight/Judgement: Poor Sleep: Poorly, Difficulty falling asleep Appetite: Good Gait/Station: Normal Psychiatric Findings - Problem List ([place] 1, 2,3) (1) Opioid dependence with withdrawal Current Visit: Yes Status: Acute (2) Cocaine dependence Current Visit: Yes Status: Chronic Qualifiers: Substance use status: in withdrawal Qualified Code(s): F14.23 - Cocaine dependence with withdrawal (3) Benzodiazepine dependence Current Visit: Yes Status: Chronic (4) Cannabis abuse Current Visit: Yes Status: Acute (5) Substance induced mood disorder Current Visit: Yes Status: Acute (6) History of anxiety disorder Current Visit: Yes Status: Chronic (7) Insomnia Current Visit: Yes Status: Chronic - Initial Treatment Plan Initial Treatment Plan: Psychoeducation. Sleep hygiene. Support. Detoxification in progress. Patient insists on resuming seroquel (according to a BID schedule) in addition to mirtazapine + detoxification protocol. Ordered : remeron 15 mg po hs. Seroquel is held (in the context of chronic pancreatitis). Side effects/benefits of these drugs are discussed with the patient. Mr Norman verbalized his agreement to this plan of care. Observation.
--- NOTE | 2020-02-13 12:32 | PN ---
[facility] CIWA - CIWA Score Nausea/Vomitin-No Nausea/No Vomiting Muscle Tremors: 3 Anxiety: 3 Agitation: 2 Paroxysmal Sweats: 3 Orientation: 0-Oriented Tacttile Disturbances: 0-None Auditory Disturbances: 1-Very Mild Visual Disturbances: 0-None Headache: 0-None Present CIWA-Ar Total Score: 12 BHS COWS - Scale Resting Pulse: 1= NV 81-100 Sweatin= Chills/Flushing Restless Observation: 1= Difficult to Sit Still Pupil Size: 0= Normal to Room Light Bone or Joint Aches: 2= Severe Diffuse Aches Runny Nose/ Eye Tearin= None GI Upset > 30mins: 1= Stomach Cramp Tremor Observation of Outstretched Hands: 2= Slight Tremor Visible Yawning Observation: 0= None Anxiety or Irritability: 1=Feels Anxious/Irritable Goose Flesh Skin: 0=Smooth Skin COWS Score: 9 BHS Progress Note (SOAP) Subjective: Complaints of abdominal cramps, sweats, anxiety, chills tremors, anxiety and irritability. Objective: 02/13/20 12:31 Vital Signs 02/13/20 02/13/20 05:06 09:58 Temperature 96.5 F L 98.2 F Pulse Rate 69 82 Respiratory 20 18 Rate Blood Pressure 105/65 110/60 O2 Sat by Pulse 99 100 Oximetry (%) Laboratory Last Values WBC 6.7 K/mm3 (4.0-10.0) 02/12/20 10:45 RBC 5.07 M/mm3 (4.00-5.60) 02/12/20 10:45 Hgb 13.1 GM/dL (11.7-16.9) 02/12/20 10:45 Hct 40.7 % (35.4-49) 02/12/20 10:45 MCV 80.3 fl (80-96) 02/12/20 10:45 MCH 25.9 pg (25.7-33.7) 02/12/20 10:45 MCHC 32.2 g/dl (32.0-35.9) 02/12/20 10:45 RDW 17.3 % (11.9-15.9) H 02/12/20 10:45 Plt Count 76 K/MM3 (134-434) L D 02/12/20 10:45 MPV 11.1 fl (7.5-11.1) 02/12/20 10:45 Sodium 140 mmol/L (136-145) 02/12/20 10:35 Potassium 3.8 mmol/L (3.5-5.1) 02/12/20 10:35 Chloride 104 mmol/L (98-107) 02/12/20 10:35 Carbon Dioxide 29 mmol/L (21-32) 02/12/20 10:35 Anion Gap 6 MMOL/L (8-16) L 02/12/20 10:35 BUN 7.3 mg/dL (7-18) 02/12/20 10:35 Creatinine 0.8 mg/dL (0.55-1.3) 02/12/20 10:35 Est GFR (CKD-EPI)AfAm 142.89 02/12/20 10:35 Est GFR (CKD-EPI)NonAf 123.29 02/12/20 10:35 Random Glucose 104 mg/dL (74-106) 02/12/20 10:35 Calcium 8.4 mg/dL (8.5-10.1) L 02/12/20 10:35 Total Bilirubin 0.7 mg/dL (0.2-1) 02/12/20 10:35 AST 44 U/L (15-37) H 02/12/20 10:35 ALT 32 U/L (13-61) 02/12/20 10:35 Alkaline Phosphatase 90 U/L (45-117) 02/12/20 10:35 Total Protein 7.0 g/dl (6.4-8.2) 02/12/20 10:35 Albumin 3.2 g/dl (3.4-5.0) L 02/12/20 10:35 Syphilis Serology Non-reactive (NONREACTIVE) 02/12/20 10:35 COVID-19 (NERISSA) Not detected (Not Detected) 02/12/20 12:00 Labs noted. Assessment: 02/13/20 12:31 Alert and oriented x 3, in no acute respiratory distress. Full ROM, ambulating in unit without assistance. Skin warm to touch without any lesions. Withdrawal symptoms. Plan: Continue detox protocol.
[2020-02-13] MEDS: PATIENT'S OWN MEDICATION (NON-FORMULARY) (Lipase/Protease/Amylase [Creon Dr 24,000 Units C PO SCH ×2 (13:54→20:44)
[2020-02-13] MEDS: MIRTAZAPINE 15 MG TABLET (FP) PO SCH (22:45)
[2020-02-13] MEDS: THIAMINE HCL 100 MG TABLET (FP) PO SCH (22:45)
[2020-02-13] MEDS: MELATONIN 5 MG TABLETS PO SCH (22:46)
[2020-02-13] MEDS: IBUPROFEN 400 MG TABLET (FP) PO PRN (22:47)
[2020-02-13] MEDS: hydrOXYzine PAMOATE 25 MG CAPSULE (FP) PO PRN (22:47)
[2020-02-14] MEDS: diazePAM 5 MG TABLET PO SCH ×2 (06:55→17:54)
[2020-02-14] MEDS: PREGABALIN 75 MG CAPSULE PO SCH ×3 (06:55→22:10)
[2020-02-14] MEDS ORDERED: METHADONE HCL 10 MG TABLET (FOR DETOX USE ONLY) PO ONE (10:00)
[2020-02-14] MEDS: NICOTINE 7 MG/24 HOURS TOPICAL PATCH TD SCH (10:29)
[2020-02-14] MEDS: diazePAM 5 MG TABLET PO PRN ×3 (10:31→20:06)
[2020-02-14] MEDS: BUDESONIDE/FORMETEROL FUMARATE 160/4.5 mcg INHALER IH SCH ×2 (10:31→22:11)
[2020-02-14] MEDS: PRENATAL VITAMINS W/ FOLIC ACID TABLET (FP) PO SCH (10:32)
[2020-02-14] MEDS: CREON 24000 UNIT PO SCH ×3 (10:32→16:58)
--- NOTE | 2020-02-14 11:44 | PN ---
[facility] CIWA - CIWA Score Nausea/Vomitin-No Nausea/No Vomiting Muscle Tremors: 1-None Visible, but [place] Anxiety: 2 Agitation: 0-Normal Activity Paroxysmal Sweats: 2 Orientation: 0-Oriented Tacttile Disturbances: 0-None Auditory Disturbances: 0-None Visual Disturbances: 0-None Headache: 0-None Present CIWA-Ar Total Score: 5 BHS COWS - Scale Resting Pulse: 0= IN 80 or Below Sweatin= Chills/Flushing Restless Observation: 0= Sits Still Pupil Size: 0= Normal to Room Light Bone or Joint Aches: 2= Severe Diffuse Aches Runny Nose/ Eye Tearin= None GI Upset > 30mins: 1= Stomach Cramp Tremor Observation of Outstretched Hands: 1= Tremor [place], Not Seen Yawning Observation: 0= None Anxiety or Irritability: 2=Irritable/Anxious Goose Flesh Skin: 0=Smooth Skin COWS Score: 7 [facility] Progress Note (SOAP) Subjective: C/O sweats, chills, tremors, anxiety, abdominal cramps, and joints ache. Objective: 02/14/20 11:44 Vital Signs 02/14/20 02/14/20 02/14/20 05:34 07:27 08:43 Temperature 96.2 F L 97.5 F L Pulse Rate 56 L 56 L 71 Respiratory 20 20 Rate Blood Pressure 95/50 L 107/62 105/59 L O2 Sat by Pulse 98 100 Oximetry (%) Laboratory Last Values WBC 6.7 K/mm3 (4.0-10.0) 02/12/20 10:45 RBC 5.07 M/mm3 (4.00-5.60) 02/12/20 10:45 Hgb 13.1 GM/dL (11.7-16.9) 02/12/20 10:45 Hct 40.7 % (35.4-49) 02/12/20 10:45 MCV 80.3 fl (80-96) 02/12/20 10:45 MCH 25.9 pg (25.7-33.7) 02/12/20 10:45 MCHC 32.2 g/dl (32.0-35.9) 02/12/20 10:45 RDW 17.3 % (11.9-15.9) H 02/12/20 10:45 Plt Count 76 K/MM3 (134-434) L D 02/12/20 10:45 MPV 11.1 fl (7.5-11.1) 02/12/20 10:45 Sodium 140 mmol/L (136-145) 02/12/20 10:35 Potassium 3.8 mmol/L (3.5-5.1) 02/12/20 10:35 Chloride 104 mmol/L (98-107) 02/12/20 10:35 Carbon Dioxide 29 mmol/L (21-32) 02/12/20 10:35 Anion Gap 6 MMOL/L (8-16) L 02/12/20 10:35 BUN 7.3 mg/dL (7-18) 02/12/20 10:35 Creatinine 0.8 mg/dL (0.55-1.3) 02/12/20 10:35 Est GFR (CKD-EPI)AfAm 142.89 02/12/20 10:35 Est GFR (CKD-EPI)NonAf 123.29 02/12/20 10:35 Random Glucose 104 mg/dL (74-106) 02/12/20 10:35 Calcium 8.4 mg/dL (8.5-10.1) L 02/12/20 10:35 Total Bilirubin 0.7 mg/dL (0.2-1) 02/12/20 10:35 AST 44 U/L (15-37) H 02/12/20 10:35 ALT 32 U/L (13-61) 02/12/20 10:35 Alkaline Phosphatase 90 U/L (45-117) 02/12/20 10:35 Total Protein 7.0 g/dl (6.4-8.2) 02/12/20 10:35 Albumin 3.2 g/dl (3.4-5.0) L 02/12/20 10:35 Syphilis Serology Non-reactive (NONREACTIVE) 02/12/20 10:35 COVID-19 (NERISSA) Not detected (Not Detected) 02/12/20 12:00 Labs noted. Assessment: 02/14/20 11:44 Alert and oriented x 3, in no acute respiratory distress. Full ROM, ambulatory in unit without any assistance. Skin warm to touch without any lesions. Withdrawal symptoms. Plan: Continue detox protocol.
--- NOTE | 2020-02-14 11:53 | PN ---
[facility] Progress Note Note: Patient approached senior underwriter regarding Seroquel order. Told senior underwriter that he saw Dr Alvarado yesterday and he was told that Seroquel 50 mg/day & 100 mg/hs will be ordered for him. According to Dr Alvarado' note, Seroquel is held due history of chronic pancreatitis. Patient's liver enzymes showed ALT 32(13-61), AST 44(15- 37) slightly elevated. Case discussed with Dr Alvarado. Dr Alvarado reports that Seroquel was held because patient reported history of chronic pancreatitis. After liver enzyme values were communicated to Dr Alvarado, he instructed senior underwriter to order Seroquel for patient. Seroquel 50 mg/bid is order for patient, no more that 100 mg/day since he acknowledges not taking medication for some time
[2020-02-14] MEDS: QUEtiapine FUMARATE 50 MG TABLET PO SCH ×2 (13:18→22:10)
[2020-02-14] MEDS: PATIENT'S OWN MEDICATION (NON-FORMULARY) (Lipase/Protease/Amylase [Creon Dr 24,000 Units C PO SCH ×2 (13:59→21:57)
[2020-02-14] MEDS: MIRTAZAPINE 15 MG TABLET (FP) PO SCH (22:10)
[2020-02-14] MEDS: MELATONIN 5 MG TABLETS PO SCH (22:10)
[2020-02-14] MEDS: THIAMINE HCL 100 MG TABLET (FP) PO SCH (22:10)
[2020-02-15] MEDS ORDERED: diazePAM 5 MG TABLET PO ONE (06:00)
[2020-02-15] MEDS: PREGABALIN 75 MG CAPSULE PO SCH ×3 (06:47→21:15)
[2020-02-15] MEDS: CREON 24000 UNIT PO SCH ×3 (07:49→16:54)
[2020-02-15] MEDS ORDERED: METHADONE HCL 5 MG TABLET (FOR DETOX USE ONLY) ONE (09:14)
[2020-02-15] MEDS ORDERED: METHADONE HCL 10 MG TABLET (FOR DETOX USE ONLY) ONE (09:15)
[2020-02-15] MEDS ORDERED: METHADONE (DETOX) 10 MG, METHADONE (DETOX) 5 MG PO ONE (10:00)
[2020-02-15] MEDS: BUDESONIDE/FORMETEROL FUMARATE 160/4.5 mcg INHALER IH SCH ×2 (10:32→21:17)
[2020-02-15] MEDS: QUEtiapine FUMARATE 50 MG TABLET PO SCH ×2 (10:32→21:15)
[2020-02-15] MEDS: NICOTINE 7 MG/24 HOURS TOPICAL PATCH TD SCH (10:32)
[2020-02-15] MEDS: PRENATAL VITAMINS W/ FOLIC ACID TABLET (FP) PO SCH (10:32)
[2020-02-15] MEDS: diazePAM 5 MG TABLET PO PRN (10:34)
--- NOTE | 2020-02-15 11:15 | PN ---
[facility] CIWA - CIWA Score Nausea/Vomitin-No Nausea/No Vomiting Muscle Tremors: None Anxiety: 2 Agitation: 0-Normal Activity Paroxysmal Sweats: 2 Tacttile Disturbances: 0-None Auditory Disturbances: 0-None Visual Disturbances: 0-None Headache: 0-None Present S COWS - Scale Resting Pulse: 1= [place] 81-100 Sweatin= No chills or Flushing Restless Observation: 0= Sits Still Pupil Size: 0= Normal to Room Light Bone or Joint Aches: 2= Severe Diffuse Aches Runny Nose/ Eye Tearin= None GI Upset > 30mins: 0= None Tremor Observation of Outstretched Hands: 0= None Yawning Observation: 0= None Anxiety or Irritability: 2=Irritable/Anxious Goose Flesh Skin: 0=Smooth Skin COWS Score: 5 [facility] Progress Note (SOAP) Subjective: c/o mild withdrawal symptoms. Objective: 02/15/20 11:15 Vital Signs 02/15/20 02/15/20 02/15/20 05:38 08:40 08:44 Temperature 96.9 F L 97.1 F L 97.1 F L Pulse Rate 75 75 86 Respiratory 18 18 18 Rate Blood Pressure 101/58 L 105/67 128/75 O2 Sat by Pulse 97 Oximetry (%) 02/15/20 09:10 Temperature 97.1 F L Pulse Rate 86 Respiratory 18 Rate Blood Pressure 128/75 O2 Sat by Pulse Oximetry (%) Laboratory Last Values WBC 6.7 K/mm3 (4.0-10.0) 02/12/20 10:45 RBC 5.07 M/mm3 (4.00-5.60) 02/12/20 10:45 Hgb 13.1 GM/dL (11.7-16.9) 02/12/20 10:45 Hct 40.7 % (35.4-49) 02/12/20 10:45 MCV 80.3 fl (80-96) 02/12/20 10:45 MCH 25.9 pg (25.7-33.7) 02/12/20 10:45 MCHC 32.2 g/dl (32.0-35.9) 02/12/20 10:45 RDW 17.3 % (11.9-15.9) H 02/12/20 10:45 Plt Count 76 K/MM3 (134-434) L D 02/12/20 10:45 MPV 11.1 fl (7.5-11.1) 02/12/20 10:45 Sodium 140 mmol/L (136-145) 02/12/20 10:35 Potassium 3.8 mmol/L (3.5-5.1) 02/12/20 10:35 Chloride 104 mmol/L (98-107) 02/12/20 10:35 Carbon Dioxide 29 mmol/L (21-32) 02/12/20 10:35 Anion Gap 6 MMOL/L (8-16) L 02/12/20 10:35 BUN 7.3 mg/dL (7-18) 02/12/20 10:35 Creatinine 0.8 mg/dL (0.55-1.3) 02/12/20 10:35 Est GFR (CKD-EPI)AfAm 142.89 02/12/20 10:35 Est GFR (CKD-EPI)NonAf 123.29 02/12/20 10:35 Random Glucose 104 mg/dL (74-106) 02/12/20 10:35 Calcium 8.4 mg/dL (8.5-10.1) L 02/12/20 10:35 Total Bilirubin 0.7 mg/dL (0.2-1) 02/12/20 10:35 AST 44 U/L (15-37) H 02/12/20 10:35 ALT 32 U/L (13-61) 02/12/20 10:35 Alkaline Phosphatase 90 U/L (45-117) 02/12/20 10:35 Total Protein 7.0 g/dl (6.4-8.2) 02/12/20 10:35 Albumin 3.2 g/dl (3.4-5.0) L 02/12/20 10:35 Syphilis Serology Non-reactive (NONREACTIVE) 02/12/20 10:35 COVID-19 (NERISSA) Not detected (Not Detected) 02/12/20 12:00 Labs noted. Assessment: 02/15/20 11:15 AOX3, in no acute respiratory distress. Full ROM, ambulating in the unit. Mild Withdrawal symptoms. Plan: continue detox.
[2020-02-15] MEDS: PATIENT'S OWN MEDICATION (NON-FORMULARY) (Lipase/Protease/Amylase [Creon Dr 24,000 Units C PO SCH ×2 (14:29→21:17)
[2020-02-15] MEDS: THIAMINE HCL 100 MG TABLET (FP) PO SCH (21:15)
[2020-02-15] MEDS: MIRTAZAPINE 15 MG TABLET (FP) PO SCH (21:15)
[2020-02-15] MEDS: MELATONIN 5 MG TABLETS PO SCH (21:16)
[2020-02-16] MEDS: PREGABALIN 75 MG CAPSULE PO SCH ×3 (06:06→21:13)
[2020-02-16] MEDS ORDERED: METHADONE HCL 10 MG TABLET (FOR DETOX USE ONLY) PO ONE (10:00)
--- NOTE | 2020-02-16 10:08 | PN ---
S CIWA - CIWA Score Nausea/Vomitin-No Nausea/No Vomiting Muscle Tremors: 1-None Visible, but [place] Anxiety: 1-Mildly Anxious Agitation: 1-Slight > Activity Paroxysmal Sweats: 1-Minimal Palms Moist Orientation: 0-Oriented Tacttile Disturbances: 0-None Auditory Disturbances: 0-None Visual Disturbances: 0-None Headache: 0-None Present CIWA-Ar Total Score: 4 [facility] COWS - Scale Resting Pulse: 2= [place] 101-120 Sweatin= Chills/Flushing Restless Observation: 1= Difficult to Sit Still Pupil Size: 0= Normal to Room Light Bone or Joint Aches: 0= None Runny Nose/ Eye Tearin= None GI Upset > 30mins: 0= None Tremor Observation of Outstretched Hands: 1= Tremor [place], Not Seen Yawning Observation: 0= None Anxiety or Irritability: 1=Feels Anxious/Irritable Goose Flesh Skin: 0=Smooth Skin COWS Score: 6 S Progress Note (SOAP) Subjective: sweats anxiety Objective: 02/16/20 09:59 Vital Signs Temperature 97.3 F L 02/16/20 08:40 Pulse Rate 102 H 02/16/20 08:40 Respiratory Rate 18 02/16/20 08:40 Blood Pressure 134/77 02/16/20 08:40 O2 Sat by Pulse Oximetry (%) 98 02/16/20 05:05 Laboratory Tests 02/12/20 02/12/20 02/12/20 10:35 10:35 10:45 WBC 6.7 RBC 5.07 Hgb 13.1 Hct 40.7 MCV 80.3 MCH 25.9 MCHC 32.2 RDW 17.3 H Plt Count 76 L D MPV 11.1 Sodium 140 Potassium 3.8 Chloride 104 Carbon Dioxide 29 Anion Gap 6 L BUN 7.3 Creatinine 0.8 Est GFR (CKD-EPI)AfAm 142.89 Est GFR (CKD-EPI)NonAf 123.29 Random Glucose 104 Calcium 8.4 L Total Bilirubin 0.7 AST 44 H ALT 32 Alkaline Phosphatase 90 Total Protein 7.0 Albumin 3.2 L Syphilis Serology Non-reactive COVID-19 (NERISSA) 02/12/20 12:00 WBC RBC Hgb Hct MCV MCH MCHC RDW Plt Count MPV Sodium Potassium Chloride Carbon Dioxide Anion Gap BUN Creatinine Est GFR (CKD-EPI)AfAm Est GFR (CKD-EPI)NonAf Random Glucose Calcium Total Bilirubin AST ALT Alkaline Phosphatase Total Protein Albumin Syphilis Serology COVID-19 (NERISSA) Not detected aaox3 ambulating no acute distress HR 102; clonidine 0.1mg x one Assessment: 02/16/20 10:09 withdrawals Plan: continue detox d/c in am
[2020-02-16] MEDS ORDERED: cloNIDine HCL 0.1 MG TABLET PO ONE (10:15)
[2020-02-16] MEDS: QUEtiapine FUMARATE 50 MG TABLET PO SCH ×2 (10:36→21:13)
[2020-02-16] MEDS: BUDESONIDE/FORMETEROL FUMARATE 160/4.5 mcg INHALER IH SCH ×2 (10:36→21:14)
[2020-02-16] MEDS: IBUPROFEN 400 MG TABLET (FP) PO PRN (10:39)
[2020-02-16] MEDS: CREON 24000 UNIT PO SCH ×3 (10:39→16:45)
[2020-02-16] MEDS: PRENATAL VITAMINS W/ FOLIC ACID TABLET (FP) PO SCH (10:42)
[2020-02-16] MEDS: NICOTINE 7 MG/24 HOURS TOPICAL PATCH TD SCH (10:42)
[2020-02-16] MEDS: hydrOXYzine PAMOATE 25 MG CAPSULE (FP) PO PRN ×2 (14:15→19:21)
[2020-02-16] MEDS: PATIENT'S OWN MEDICATION (NON-FORMULARY) (Lipase/Protease/Amylase [Creon Dr 24,000 Units C PO SCH ×2 (14:16→21:13)
[2020-02-16] MEDS: MIRTAZAPINE 15 MG TABLET (FP) PO SCH (21:13)
[2020-02-16] MEDS: THIAMINE HCL 100 MG TABLET (FP) PO SCH (21:13)
[2020-02-16] MEDS: MELATONIN 5 MG TABLETS PO SCH (21:14)
[2020-02-17] MEDS: PREGABALIN 75 MG CAPSULE PO SCH ×2 (05:28→13:46)
[2020-02-17] MEDS ORDERED: METHADONE HCL 5 MG TABLET (FOR DETOX USE ONLY) PO ONE (06:00)
[2020-02-17] MEDS: CREON 24000 UNIT PO SCH ×2 (09:00→11:33)
[2020-02-17 09:08] VITALS: TEMP 98.1
--- NOTE | 2020-02-17 09:29 | DS ---
[facility] Detox Discharge Summary Admission Date: 02/12/20 Discharge Date: 02/17/20 - History Present History: Cannabis Dependence, Cocaine Dependence - Physical Exam Results Vital Signs: Vital Signs Temperature 98.1 F 02/17/20 08:54 Pulse Rate 92 H 02/17/20 08:54 Respiratory Rate 16 02/17/20 08:54 Blood Pressure 123/67 02/17/20 08:54 O2 Sat by Pulse Oximetry (%) 97 02/17/20 08:54 Pertinent Admission Physical Exam Findings: Vital Signs Temperature 98.1 F 02/17/20 08:54 Pulse Rate 92 H 02/17/20 08:54 Respiratory Rate 16 02/17/20 08:54 Blood Pressure 123/67 02/17/20 08:54 O2 Sat by Pulse Oximetry (%) 97 02/17/20 08:54 Laboratory Tests 02/12/20 02/12/20 02/12/20 10:35 10:35 10:45 WBC 6.7 RBC 5.07 Hgb 13.1 Hct 40.7 MCV 80.3 MCH 25.9 MCHC 32.2 RDW 17.3 H Plt Count 76 L D MPV 11.1 Sodium 140 Potassium 3.8 Chloride 104 Carbon Dioxide 29 Anion Gap 6 L BUN 7.3 Creatinine 0.8 Est GFR (CKD-EPI)AfAm 142.89 Est GFR (CKD-EPI)NonAf 123.29 Random Glucose 104 Calcium 8.4 L Total Bilirubin 0.7 AST 44 H ALT 32 Alkaline Phosphatase 90 Total Protein 7.0 Albumin 3.2 L Syphilis Serology Non-reactive COVID-19 (NERISSA) 02/12/20 12:00 WBC RBC Hgb Hct MCV MCH MCHC RDW Plt Count MPV Sodium Potassium Chloride Carbon Dioxide Anion Gap BUN Creatinine Est GFR (CKD-EPI)AfAm Est GFR (CKD-EPI)NonAf Random Glucose Calcium Total Bilirubin AST ALT Alkaline Phosphatase Total Protein Albumin Syphilis Serology COVID-19 (NERISSA) Not detected labs noted aaox3 ambulating no acute distress - Treatment Hospital Course: Detox Protocol Followed, Detoxed Safely, Responded well, Discharged Condition Good, Rehab Referral Accepted - Medication Discharge Medications: Ambulatory Orders Pregabalin [Lyrica -] 150 mg PO TID 06/24/18 Lipase/Protease/Amylase [Arti Hawkins 24,000 Units Capsule] 5 cap PO ASDIR 06/25/18 Lipase/Protease/Amylase [Arti Hawkins 24,000 Units Capsule] 10 cap PO TIDCM 06/25/18 Albuterol Sulfate Inhaler - [Ventolin HFA Inhaler -] 2 inh PO Q4H PRN 01/15/19 Budesonide/Formeterol Fumarate [SYMBICORT 160/4.5mcg -] 1 inh PO BID 01/15/19 Mirtazapine [Remeron -] 30 mg PO HS 02/12/20 - Diagnosis (1) Cannabis abuse Current Visit: Yes Status: Chronic (2) Opioid dependence with withdrawal Current Visit: Yes Status: Chronic (3) Substance induced mood disorder Current Visit: Yes Status: Acute (4) Benzodiazepine dependence Current Visit: Yes Status: Chronic (5) Cocaine dependence Current Visit: Yes Status: Chronic Qualifiers: Substance use status: uncomplicated Qualified Code(s): F14.20 - Cocaine dependence, uncomplicated (6) History of anxiety disorder Current Visit: Yes Status: Chronic (7) Insomnia Current Visit: Yes Status: Chronic (8) ADHD Current Visit: No Status: Acute (9) Anxiety and depression Current Visit: No Status: Acute (10) Anxiety and depression Current Visit: No Status: Acute (11) Dehydration Current Visit: No Status: Acute (12) Sedative, hypnotic or anxiolytic dependence with withdrawal, uncomplicated Current Visit: No Status: Acute (13) Substance-induced sleep disorder Current Visit: No Status: Acute (14) Thrombocytopenia Current Visit: No Status: Acute (15) Weight loss Current Visit: No Status: Acute (16) Anxiety and depression Current Visit: No Status: Chronic (17) Cystic fibrosis Current Visit: No Status: Chronic (18) GERD (gastroesophageal reflux disease) Current Visit: No Status: Chronic Qualifiers: Esophagitis presence: esophagitis presence not specified Qualified Code(s): K21.9 - Gastro-esophageal reflux disease without esophagitis (19) IVDU (intravenous drug user) Current Visit: No Status: Chronic (20) Mood disorder Current Visit: No Status: Chronic (21) Pancreas (digestive gland) works poorly Current Visit: No Status: Chronic (22) Pancreatitis Current Visit: No Status: Resolved - AMA Did Patient Leave Against Medical Advice: No
[2020-02-17] MEDS: BUDESONIDE/FORMETEROL FUMARATE 160/4.5 mcg INHALER IH SCH (09:52)
[2020-02-17] MEDS: QUEtiapine FUMARATE 50 MG TABLET PO SCH (09:52)
[2020-02-17] MEDS: PRENATAL VITAMINS W/ FOLIC ACID TABLET (FP) PO SCH (09:52)
[2020-02-17] MEDS: NICOTINE 7 MG/24 HOURS TOPICAL PATCH TD SCH (09:53)
[2020-02-17 13:22] VITALS: BP 128/76; PULSE 66
== END 2020-02-17 14:18 | disposition other institution (70) | DRG 773 ==
LOC: YASAS 08:50 → Y6N 10:43
PROVIDERS: ADMIT Allergy & Immunology; ATTEND Allergy & Immunology
PROC: HZ2ZZZZ Detoxification Services for Substance Abuse Treatment (ICD-10-PCS; principal; 2020-02-12)
DX: F11.23 Opioid dependence with withdrawal (principal); F14.20 Cocaine dependence, uncomplicated; F13.20 Sedative, hypnotic or anxiolytic dependence, uncomplicated; F12.20 Cannabis dependence, uncomplicated; F39 Unspecified mood [affective] disorder; F19.282 Other psychoactive substance dependence with psychoactive substance-induced sleep disorder; F19.24 Other psychoactive substance dependence with psychoactive substance-induced mood disorder; F90.9 Attention-deficit hyperactivity disorder, unspecified type; F41.9 Anxiety disorder, unspecified; F32.9 Major depressive disorder, single episode, unspecified; E84.9 Cystic fibrosis, unspecified; D69.6 Thrombocytopenia, unspecified; K86.1 Other chronic pancreatitis; G47.00 Insomnia, unspecified; E86.0 Dehydration; R63.4 Abnormal weight loss; Z68.1 Body mass index [BMI] 19.9 or less, adult
CPT/HCPCS: 36415; 80053; 85027; 86780; U0003

== ENCOUNTER 2020-02-17 15:02 | Inpatient (IN) | payer OTHER ==
--- NOTE | 2020-02-17 13:38 | HP ---
[facility] Rehab Assess/Revision - Admission History Ad[facility] - Findings Detox History & Physical reviewed: Yes Concur with findings: Yes Inpatient Rehab Admission - Rehab Decision to Admit Inpatient rehab admission?: Yes - Initial Determination Are CD services needed?: Yes Free of communicable disease: Yes Not in need of hospitalization: Yes - Rehab Admission Criteria Previous failed treatment: Yes Poor recovery environment: Yes Comorbidities: Yes Lacks judgement: Yes Patient is meeting Inpatient Rehab admission criteria:: Yes
[2020-02-17] MEDS ORDERED: P-EPHED 60MG/TRIPROLIDI 2.5MG TABLET PO PRN (15:13)
[2020-02-17] MEDS ORDERED: hydrOXYzine PAMOATE 25 MG CAPSULE (FP) PO PRN (15:13)
[2020-02-17] MEDS ORDERED: guaiFENesin 200 MG/10 ML 10 ML UNIT-DOSE CUPS PO PRN (15:13)
[2020-02-17] MEDS ORDERED: MENTHOL/PHENOL 1 EACH UD MM PRN (15:13)
[2020-02-17] MEDS ORDERED: MAGNESIUM HYDROX 2400MG/30ML ORAL SUSPENSION 30 ML CUP PO PRN (15:13)
[2020-02-17] MEDS ORDERED: MAG HYDROX/AL HYDROX/SIMETH 30 ML UNIT-DOSE CUP PO PRN (15:13)
[2020-02-17] MEDS ORDERED: MAGNESIUM CITRATE 300 ML BOTTLE PO PRN (15:13)
[2020-02-17] MEDS ORDERED: LOPERAMIDE HCL 2 MG CAPSULE PO PRN (15:13)
[2020-02-17] MEDS ORDERED: ACETAMINOPHEN 325 MG TABLET (FP) PO PRN (15:13)
[2020-02-17] MEDS ORDERED: ALBUTEROL SO4 HFA INHALER IH PRN (15:16)
--- NOTE | 2020-02-17 15:22 | HP ---
[facility] Re[facility] Assess/Revision - Admission History Ad[facility] - Findings Detox History & Physical reviewed: Yes Concur with findings: Yes Comments/Additional Findings: P/E. General: no apparent distress. HEENTM: normocephalic, EOMI. Neck : supple. Resp: unlabored. ABD:+BS. MSK: full weight bearing, steady gait. NEURO: No cognitive deficits noted Inpatient Rehab Admission - Rehab Decision to Admit Inpatient rehab admission?: Yes - Initial Determination Are CD services needed?: Yes Free of communicable disease: Yes Not in need of hospitalization: Yes - Rehab Admission Criteria Previous failed treatment: Yes Poor recovery environment: Yes Comorbidities: Yes Lacks judgement: Yes Patient is meeting Inpatient Rehab admission criteria:: Yes
[2020-02-17] MEDS: PATIENT'S OWN MEDICATION (NON-FORMULARY) (Lipase/Protease/Amylase [Creon Dr 24,000 Units C PO SCH ×3 (16:05→21:03)
[2020-02-17] MEDS ORDERED: PT OWN MED DRAWER 7, Y5N ONE (16:42)
[2020-02-17] MEDS: MELATONIN 5 MG TABLETS PO SCH (21:03)
[2020-02-17] MEDS: THIAMINE HCL 100 MG TABLET (FP) PO SCH (21:03)
[2020-02-17] MEDS: MIRTAZAPINE 15 MG TABLET (FP) PO SCH (21:04)
[2020-02-17] MEDS: PREGABALIN 75 MG CAPSULE PO SCH (21:04)
[2020-02-17] MEDS: QUEtiapine FUMARATE 50 MG TABLET PO SCH (21:05)
[2020-02-17] MEDS: BUDESONIDE/FORMETEROL FUMARATE 160/4.5 mcg INHALER IH SCH (21:05)
[2020-02-18] MEDS: PATIENT'S OWN MEDICATION (NON-FORMULARY) (Lipase/Protease/Amylase [Creon Dr 24,000 Units C PO SCH ×6 (07:06→20:27)
[2020-02-18] MEDS ORDERED: PT OWN MED DRAWER 7, Y5N ONE (09:02)
[2020-02-18] MEDS: BUDESONIDE/FORMETEROL FUMARATE 160/4.5 mcg INHALER IH SCH ×2 (10:36→21:30)
[2020-02-18] MEDS: PRENATAL VITAMINS W/ FOLIC ACID TABLET (FP) PO SCH (10:36)
[2020-02-18] MEDS: PREGABALIN 75 MG CAPSULE PO SCH ×2 (10:36→21:29)
[2020-02-18] MEDS: QUEtiapine FUMARATE 50 MG TABLET PO SCH ×2 (10:36→21:28)
--- NOTE | 2020-02-18 15:32 | PN ---
[facility] COWS - Scale Resting Pulse: 1= [place] 81-100 Sweatin=Flushed/Facial Moisture Restless Observation: 0= Sits Still Pupil Size: 0= Normal to Room Light Bone or Joint Aches: 4=Acute Joint/Muscle Pain Runny Nose/ Eye Tearin= Runny Nose/Eyes GI Upset > 30mins: 1= Stomach Cramp Tremor Observation of Outstretched Hands: 1= Tremor [place], Not Seen Yawning Observation: 1= 1-2x During Session Anxiety or Irritability: 1=Feels Anxious/Irritable Goose Flesh Skin: 3=Piloe[place] COWS Score: 16 [facility] Progress Note (SOAP) Subjective: Patient was previously on Suboxone, stopped when he was kicked out of his home. He went to [place] and relapse. his las treatment with suboxone was 10/16/2019. He was on 12mg/day of suboxone, when he relapsed, he used about 5- 7bundles of heroin. reports that he is experiencing cravings. Patient Name: Jackson NormanBirth Date: 1995 Address: [address] [place], [place] [id number]: Male Rx Written Rx Dispensed Drug Quantity Days Supply Prescriber Name Payment Method Dispenser 02/04/2020 02/04/2020 pregabalin 150 mg capsule 90 30 Mushtaq Gorman (SALES SERVICE COORDINATOR) Medicaid [facility] #[id number] 02/04/2020 02/04/2020 clonazepam 1 mg tablet 90 30 Mushtaq Gorman (SALES SERVICE COORDINATOR) Medicaid [facility] #[id number] 12/31/2019 01/05/2020 clonazepam 1 mg tablet 90 30 Mushtaq Gorman (SALES SERVICE COORDINATOR) Medicaid [facility] #[id number] 12/31/2019 01/05/2020 pregabalin 150 mg capsule 90 30 Mushtaq Gorman (SALES SERVICE COORDINATOR) Medicaid [facility] #[id number] 12/04/2019 12/07/2019 pregabalin 150 mg capsule 90 30 Mushtaq Gorman (SALES SERVICE COORDINATOR) Medicaid [facility] #[id number] 12/04/2019 12/07/2019 clonazepam 1 mg tablet 90 30 Mushtaq Gorman (SALES SERVICE COORDINATOR) Medicaid [facility] #[id number] 10/16/2019 11/12/2019 buprenorphine-naloxone 8-2 mg sl tablet 21 14 Alpa Ceja MD Medicaid [facility] #[id number] 10/26/2019 10/26/2019 pregabalin 150 mg capsule 90 30 Tigenoah, Mushtaq Lala (SALES SERVICE COORDINATOR) Medicaid [facility] #[id number] 10/26/2019 10/26/2019 clonazepam 1 mg tablet 90 30 Tigenoah, Mushtaq A (SALES SERVICE COORDINATOR) Medicaid [facility] #[id number] 10/16/2019 10/16/2019 buprenorphine-naloxone 8-2 mg sl tablet 21 14 Alpa Ceja MD Medicaid [facility] #[id number] 09/25/2019 09/26/2019 pregabalin 150 mg capsule 90 30 Tigenoah, Mushtaq A (SALES SERVICE COORDINATOR) Medicaid [facility] #[id number] 09/25/2019 09/26/2019 clonazepam 1 mg tablet 90 30 Tigenoah, Mushtaq A (SALES SERVICE COORDINATOR) Medicaid [facility] #[id number] 09/02/2019 09/03/2019 buprenorphine-naloxone 8-2 mg sl tablet 21 14 Damaris Vega () Medicaid [facility] #[id number] 08/28/2019 08/28/2019 pregabalin 150 mg capsule 90 30 Tigenoah, Mushtaq A (SALES SERVICE COORDINATOR) Medicaid [facility] #[id number] 08/28/2019 08/28/2019 clonazepam 1 mg tablet 90 30 Tigenoah, Mushtaq A (SALES SERVICE COORDINATOR) Medicaid [facility] #[id number] 08/21/2019 08/22/2019 buprenorphine-naloxone 8-2 mg sl tablet 15 10 Alpa Ceja MD Medicaid [facility] #[id number] 08/14/2019 08/14/2019 buprenorphine-naloxone 8-2 mg sl tablet 8 6 Remigio Hurt DO Medicaid [facility] #[id number] 08/03/2019 08/04/2019 buprenorphine-naloxone 8-2 mg sl tablet 10 6 Magali Conner MD Medicaid [facility] #[id number] 07/27/2019 07/27/2019 pregabalin 150 mg capsule 90 30 [facility] Medicaid [facility] #[id number] 07/27/2019 07/27/2019 clonazepam 1 mg tablet 90 30 [facility] Medicaid [facility] #[id number] 07/27/2019 07/27/2019 buprenorphine-naloxone 8-2 mg sl film 10 10 Magalis Coleman) Medicaid [facility] #[id number] 07/17/2019 07/17/2019 clonazepam 1 mg tablet 30 15 Mushtaq Gorman (SALES SERVICE COORDINATOR) Medicaid [facility] #[id number] 07/03/2019 07/03/2019 clonazepam 1 mg tablet 30 15 Mushtaq Gorman (SALES SERVICE COORDINATOR) Medicaid [facility] #[id number] 04/13/2019 04/15/2019 clonazepam 1 mg tablet 20 10 [facility] Medicaid [facility] #[id number] 04/14/2019 04/15/2019 buprenorphine-naloxone 8-2 mg sl film 14 14 Magalis Coleman) Medicaid [facility] #[id number] 03/11/2019 03/11/2019 buprenorphine-naloxone 8-2 mg sl film 14 7 [place] Theresa NP Medicaid [facility] #[id number] 03/11/2019 03/11/2019 clonazepam 1 mg tablet 14 7 Burdick, Theresa NP Medicaid [facility] #[id number] 03/04/2019 03/04/2019 clonazepam 1 mg tablet 14 7 Burdick, Theresa NP Medicaid [facility] #[id number] 03/04/2019 03/04/2019 buprenorphine-naloxone 8-2 mg sl film 14 7 Burdick, Theresa NP Medicaid [facility] #[id number] 02/25/2019 02/25/2019 buprenorphine-naloxone 8-2 mg sl film 14 7 Burdick, Theresa NP Medicaid [facility] #[id number] 02/25/2019 02/25/2019 clonazepam 1 mg tablet 14 7 Burdick, Theresa NP Medicaid [facility] #[id number] 02/18/2019 02/18/2019 buprenorphine-naloxone 8-2 mg sl film 14 7 Burdick, Theresa NP Medicaid [facility] #[id number] 02/18/2019 02/18/2019 clonazepam 1 mg tablet 14 7 Burdick, Theresa NP Medicaid [facility] #[id number] Objective: P/E; General: appears calm HEENTM: perrla. EOMI Neck: supple Resp: unlabored MSK; full weight bearing, steady gait, Neuro: no cognitive deficits. 02/18/20 15:32 Assessment: withdrawal from heroin 02/18/20 15:34 Plan: Will start with suboxone 2mg today, and titrate to effect.
[2020-02-18] MEDS: BUPRENORPHINE/NALOXONE 4 MG/1 MG FILM PACKET SL SCH (16:52)
[2020-02-18] MEDS: MIRTAZAPINE 15 MG TABLET (FP) PO SCH (21:28)
[2020-02-18] MEDS: THIAMINE HCL 100 MG TABLET (FP) PO SCH (21:28)
[2020-02-18] MEDS: MELATONIN 5 MG TABLETS PO SCH (21:28)
[2020-02-19] MEDS: PATIENT'S OWN MEDICATION (NON-FORMULARY) (Lipase/Protease/Amylase [Creon Dr 24,000 Units C PO SCH ×5 (09:52→20:53)
[2020-02-19] MEDS: hydrOXYzine PAMOATE 50 MG CAPSULE (FP) PO PRN (09:54)
[2020-02-19] MEDS: BUDESONIDE/FORMETEROL FUMARATE 160/4.5 mcg INHALER IH SCH ×2 (09:54→21:13)
[2020-02-19] MEDS: PRENATAL VITAMINS W/ FOLIC ACID TABLET (FP) PO SCH (09:54)
[2020-02-19] MEDS: PREGABALIN 75 MG CAPSULE PO SCH ×2 (09:54→21:12)
[2020-02-19] MEDS: BUPRENORPHINE/NALOXONE 4 MG/1 MG FILM PACKET SL SCH (09:54)
[2020-02-19] MEDS: QUEtiapine FUMARATE 50 MG TABLET PO SCH ×2 (09:54→21:10)
--- NOTE | 2020-02-19 16:53 | CONSULT ---
[facility] Psychiatric Consult - Data Date of interview: 02/19/20 Admission source: [facility] Identifying data: Patient is a 24 year old single male, without children, unemployed, homeless,and is supported with disability benefits. This is patient's first admission to rehab at [facility]. Patient admitted to for opiate dependence. Substance Abuse History: Smoking Cessation. Smoking history: Never smoked. Have you smoked in the past 12 months: No. Hx Chewing Tobacco Use: No. - Substances abused. Alprazolam (Xanax). Substance route: Oral. Frequency: Daily. Amount used: 2-3MG TABS. Age of first use: 15. Date of last use: 02/10/20. Heroin. Substance route: Injection. Frequency: Daily. Amount used: 5-8BAGS. Age of first use: 16. Date of last use: 02/11/20 Medical History: remarkable for thoracotomy in 2011 (left pneumothorax), GERD, cystic fibrosis and antecedent of right inguinal herniorraphy Psychiatric History: Mr. Norman's first psychiatric contact occured in 2012 after he saw a psychiatric nurse practitioner in [place] for his anxiety. Reports being diagnosed with anxiety disorder and was treated with Valium. Patient then saw a psychiatrist at [facility] from [phone] and was prescribed suboxone +Lyrica+ remeron. Mr. Norman currently see's Dr. Gorman in [facility], for medication management. He is prescribed klonopin 1 mg/tid + lyrica 150 mg/tid + remeron 30mg HS mg/hs + seroquel 100 mg/hs. Diagnosed with Anxiety Disorder. Patient denies history of psychiatric hospitalization + suicide attempts. At present patient reports difficulty sleeping. Physical/Sexual Abuse/Trauma History: denies. Mental Status Exam - Mental Status Exam Alert and Oriented to: Time, Place, Person Cognitive Function: Good Patient Appearance: Well Groomed Mood: Hopeful Affect: Appropriate Patient Behavior: Appropriate, Cooperative Speech Pattern: Appropriate Voice Loudness: Normal Thought Process: Goal Oriented Thought Disorder: Not Present Hallucinations: Denies Suicidal Ideation: Denies Homicidal Ideation: Denies Insight/Judgement: Poor Sleep: Poorly Appetite: Fair Muscle strength/Tone: Normal Gait/Station: Normal Psychiatric Findings - Problem List ([place] 1, 2,3) (1) Opioid dependence Current Visit: Yes Status: Acute (2) Substance-induced sleep disorder Current Visit: Yes Status: Acute (3) Cocaine dependence Current Visit: Yes Status: Chronic Qualifiers: Substance use status: uncomplicated Qualified Code(s): F14.20 - Cocaine dependence, uncomplicated (4) History of anxiety disorder Current Visit: Yes Status: Acute (5) Benzodiazepine dependence Current Visit: Yes Status: Chronic (6) Cannabis abuse Current Visit: Yes Status: Chronic - Initial Treatment Plan Initial Treatment Plan: Psychoeducation provided. Rehab in progress. 1) Will d/c Remeron 15mg HS + Seroquel 50mg BID. 2) Will order Remeron 30mg HS + Seroquel 100mg HS (patient requesting to take the full dose of seroquel at night). Benefits and side effects discussed. Verbal consent given.
[2020-02-19] MEDS: MELATONIN 5 MG TABLETS PO SCH (21:10)
[2020-02-19] MEDS: THIAMINE HCL 100 MG TABLET (FP) PO SCH (21:10)
[2020-02-19] MEDS: MIRTAZAPINE 15 MG TABLET (FP) PO SCH (21:10)
[2020-02-20] MEDS: PATIENT'S OWN MEDICATION (NON-FORMULARY) (Lipase/Protease/Amylase [Creon Dr 24,000 Units C PO SCH ×6 (07:30→21:34)
[2020-02-20] MEDS ORDERED: PT OWN MED DRAWER 7, Y5N ONE (09:27)
[2020-02-20] MEDS: BUPRENORPHINE/NALOXONE 4 MG/1 MG FILM PACKET SL SCH (10:24)
[2020-02-20] MEDS: PREGABALIN 75 MG CAPSULE PO SCH ×2 (10:24→21:35)
[2020-02-20] MEDS: PRENATAL VITAMINS W/ FOLIC ACID TABLET (FP) PO SCH (10:24)
[2020-02-20] MEDS: BUDESONIDE/FORMETEROL FUMARATE 160/4.5 mcg INHALER IH SCH ×2 (10:25→21:33)
[2020-02-20] MEDS: hydrOXYzine PAMOATE 50 MG CAPSULE (FP) PO PRN (17:07)
[2020-02-20] MEDS: THIAMINE HCL 100 MG TABLET (FP) PO SCH (21:33)
[2020-02-20] MEDS: MIRTAZAPINE 15 MG TABLET (FP) PO SCH (21:33)
[2020-02-20] MEDS: QUEtiapine FUMARATE 50 MG TABLET PO SCH (21:33)
[2020-02-20] MEDS: MELATONIN 5 MG TABLETS PO SCH (21:34)
[2020-02-21] MEDS: PRENATAL VITAMINS W/ FOLIC ACID TABLET (FP) PO SCH (10:01)
[2020-02-21] MEDS: PREGABALIN 75 MG CAPSULE PO SCH ×2 (10:01→21:11)
[2020-02-21] MEDS: LIPASE/PROTEASE/AMYLASE 36,000 UNIT CAPSULE PO SCH ×5 (10:03→21:12)
[2020-02-21] MEDS: LIPASE/PROTEASE/AMYLASE 6,000 UNIT CAPSULE PO SCH ×3 (10:03→17:22)
[2020-02-21] MEDS: BUPRENORPHINE/NALOXONE 4 MG/1 MG FILM PACKET SL SCH (10:03)
[2020-02-21] MEDS: BUDESONIDE/FORMETEROL FUMARATE 160/4.5 mcg INHALER IH SCH ×2 (10:03→21:10)
[2020-02-21] MEDS ORDERED: PT OWN MED DRAWER 7, Y5N ONE (17:21)
[2020-02-21] MEDS: QUEtiapine FUMARATE 50 MG TABLET PO SCH (21:10)
[2020-02-21] MEDS: THIAMINE HCL 100 MG TABLET (FP) PO SCH (21:10)
[2020-02-21] MEDS: MELATONIN 5 MG TABLETS PO SCH (21:11)
[2020-02-21] MEDS: MIRTAZAPINE 15 MG TABLET (FP) PO SCH (21:11)
[2020-02-21] MEDS: hydrOXYzine PAMOATE 50 MG CAPSULE (FP) PO PRN (21:12)
[2020-02-22] MEDS: LIPASE/PROTEASE/AMYLASE 6,000 UNIT CAPSULE PO SCH ×3 (08:05→17:20)
--- NOTE | 2020-02-22 09:55 | PN ---
S Progress Note Note: Patient evaluated for c/o shortness of breath with ambulation and left sided pleuritic discomfort. He reports having symptoms x 24 hours. Has hx of Cystic Fibrosis but denies cough and chill/fever. Vital Signs Temperature 97.5 F L 02/22/20 08:41 Pulse Rate 101 H 02/22/20 08:41 Respiratory Rate 18 02/22/20 08:41 Blood Pressure 118/75 02/22/20 08:41 O2 Sat by Pulse Oximetry (%) 98 02/21/20 20:27 PE alert and oriented x 3 skin warm and dry, color pale neck supple, no jvd car s1s2 resp +diminished breath sounds LLL, no rhonchi or rales ext full rom, amb ad [place] A/P: LLL pleuritic discomfort SOB hx of CF Will order Chest XRAY continue symbicort as ordered rest encouraged to limit exertion monitor clinically
[2020-02-22] MEDS: BUDESONIDE/FORMETEROL FUMARATE 160/4.5 mcg INHALER IH SCH ×2 (10:04→21:34)
[2020-02-22] MEDS: PREGABALIN 75 MG CAPSULE PO SCH ×2 (10:13→21:31)
[2020-02-22] MEDS: PRENATAL VITAMINS W/ FOLIC ACID TABLET (FP) PO SCH (10:13)
[2020-02-22] MEDS: BUPRENORPHINE/NALOXONE 4 MG/1 MG FILM PACKET SL SCH (10:13)
[2020-02-22] MEDS: LIPASE/PROTEASE/AMYLASE 36,000 UNIT CAPSULE PO SCH ×5 (10:14→20:25)
[2020-02-22] MEDS ORDERED: PT OWN MED DRAWER 7, Y5N ONE ×2 (10:23→12:08)
[2020-02-22] MEDS: IBUPROFEN 400 MG TABLET (FP) PO PRN ×2 (15:56→21:32)
[2020-02-22] MEDS: QUEtiapine FUMARATE 50 MG TABLET PO SCH (21:30)
[2020-02-22] MEDS: MELATONIN 5 MG TABLETS PO SCH (21:30)
[2020-02-22] MEDS: THIAMINE HCL 100 MG TABLET (FP) PO SCH (21:30)
[2020-02-22] MEDS: MIRTAZAPINE 15 MG TABLET (FP) PO SCH (21:30)
[2020-02-22] MEDS: hydrOXYzine PAMOATE 50 MG CAPSULE (FP) PO PRN (21:33)
[2020-02-23] MEDS: LIPASE/PROTEASE/AMYLASE 6,000 UNIT CAPSULE PO SCH ×3 (08:29→17:24)
[2020-02-23] MEDS: LIPASE/PROTEASE/AMYLASE 36,000 UNIT CAPSULE PO SCH ×5 (08:29→21:04)
[2020-02-23] MEDS: PREGABALIN 75 MG CAPSULE PO SCH ×2 (10:16→21:06)
[2020-02-23] MEDS: IBUPROFEN 400 MG TABLET (FP) PO PRN ×2 (10:16→21:06)
[2020-02-23] MEDS: PRENATAL VITAMINS W/ FOLIC ACID TABLET (FP) PO SCH (10:16)
[2020-02-23] MEDS: hydrOXYzine PAMOATE 50 MG CAPSULE (FP) PO PRN ×2 (10:16→21:05)
[2020-02-23] MEDS: BUPRENORPHINE/NALOXONE 4 MG/1 MG FILM PACKET SL SCH (10:16)
[2020-02-23] MEDS: BUDESONIDE/FORMETEROL FUMARATE 160/4.5 mcg INHALER IH SCH ×2 (10:19→21:07)
[2020-02-23] MEDS ORDERED: PT OWN MED DRAWER 7, Y5N ONE ×3 (12:28→19:00)
[2020-02-23] MEDS: MIRTAZAPINE 15 MG TABLET (FP) PO SCH (21:04)
[2020-02-23] MEDS: THIAMINE HCL 100 MG TABLET (FP) PO SCH (21:04)
[2020-02-23] MEDS: MELATONIN 5 MG TABLETS PO SCH (21:05)
[2020-02-23] MEDS: QUEtiapine FUMARATE 50 MG TABLET PO SCH (21:05)
[2020-02-24] MEDS: IBUPROFEN 400 MG TABLET (FP) PO PRN ×2 (10:56→21:38)
[2020-02-24] MEDS: PREGABALIN 75 MG CAPSULE PO SCH (10:57)
[2020-02-24] MEDS: BUPRENORPHINE/NALOXONE 4 MG/1 MG FILM PACKET SL SCH (10:57)
[2020-02-24] MEDS: PRENATAL VITAMINS W/ FOLIC ACID TABLET (FP) PO SCH (10:57)
[2020-02-24] MEDS: LIPASE/PROTEASE/AMYLASE 6,000 UNIT CAPSULE PO SCH ×3 (10:58→17:14)
[2020-02-24] MEDS: BUDESONIDE/FORMETEROL FUMARATE 160/4.5 mcg INHALER IH SCH ×2 (10:59→21:39)
[2020-02-24] MEDS: LIPASE/PROTEASE/AMYLASE 36,000 UNIT CAPSULE PO SCH ×5 (10:59→20:25)
[2020-02-24] MEDS: THIAMINE HCL 100 MG TABLET (FP) PO SCH (21:37)
[2020-02-24] MEDS: QUEtiapine FUMARATE 50 MG TABLET PO SCH (21:37)
[2020-02-24] MEDS: MELATONIN 5 MG TABLETS PO SCH (21:37)
[2020-02-24] MEDS: MIRTAZAPINE 15 MG TABLET (FP) PO SCH (21:37)
[2020-02-24] MEDS: hydrOXYzine PAMOATE 50 MG CAPSULE (FP) PO PRN (21:38)
[2020-02-25] MEDS: IBUPROFEN 400 MG TABLET (FP) PO PRN ×2 (09:17→21:05)
[2020-02-25] MEDS: PRENATAL VITAMINS W/ FOLIC ACID TABLET (FP) PO SCH (09:18)
[2020-02-25] MEDS: LIPASE/PROTEASE/AMYLASE 6,000 UNIT CAPSULE PO SCH ×3 (09:20→17:35)
[2020-02-25] MEDS: LIPASE/PROTEASE/AMYLASE 36,000 UNIT CAPSULE PO SCH ×5 (09:20→21:05)
[2020-02-25] MEDS: BUDESONIDE/FORMETEROL FUMARATE 160/4.5 mcg INHALER IH SCH ×2 (10:44→21:05)
[2020-02-25] MEDS: BUPRENORPHINE/NALOXONE 4 MG/1 MG FILM PACKET SL SCH (11:53)
[2020-02-25] MEDS ORDERED: BUPRENORPHINE/NALOXONE 4 MG/1 MG FILM PACKET SL SCH (16:30)
[2020-02-25] MEDS: MELATONIN 5 MG TABLETS PO SCH (21:05)
[2020-02-25] MEDS: QUEtiapine FUMARATE 50 MG TABLET PO SCH (21:05)
[2020-02-25] MEDS: hydrOXYzine PAMOATE 50 MG CAPSULE (FP) PO PRN (21:05)
[2020-02-25] MEDS: THIAMINE HCL 100 MG TABLET (FP) PO SCH (21:05)
[2020-02-25] MEDS: MIRTAZAPINE 15 MG TABLET (FP) PO SCH (21:05)
[2020-02-26] MEDS: LIPASE/PROTEASE/AMYLASE 6,000 UNIT CAPSULE PO SCH ×3 (08:02→19:51)
[2020-02-26] MEDS: LIPASE/PROTEASE/AMYLASE 36,000 UNIT CAPSULE PO SCH ×5 (08:02→19:53)
[2020-02-26] MEDS: PRENATAL VITAMINS W/ FOLIC ACID TABLET (FP) PO SCH (10:06)
[2020-02-26] MEDS: BUPRENORPHINE/NALOXONE 4 MG/1 MG FILM PACKET SL SCH (10:06)
[2020-02-26] MEDS: BUDESONIDE/FORMETEROL FUMARATE 160/4.5 mcg INHALER IH SCH ×2 (10:07→21:41)
[2020-02-26] MEDS ORDERED: PT OWN MED DRAWER 7, Y5N ONE ×2 (10:57→13:54)
[2020-02-26] MEDS: hydrOXYzine PAMOATE 50 MG CAPSULE (FP) PO PRN (21:39)
[2020-02-26] MEDS: QUEtiapine FUMARATE 50 MG TABLET PO SCH (21:39)
[2020-02-26] MEDS: MELATONIN 5 MG TABLETS PO SCH (21:39)
[2020-02-26] MEDS: MIRTAZAPINE 15 MG TABLET (FP) PO SCH (21:39)
[2020-02-26] MEDS: THIAMINE HCL 100 MG TABLET (FP) PO SCH (21:39)
[2020-02-26] MEDS: IBUPROFEN 400 MG TABLET (FP) PO PRN (21:39)
[2020-02-27] MEDS: LIPASE/PROTEASE/AMYLASE 6,000 UNIT CAPSULE PO SCH ×3 (09:00→17:30)
[2020-02-27] MEDS: LIPASE/PROTEASE/AMYLASE 36,000 UNIT CAPSULE PO SCH ×5 (09:00→21:07)
[2020-02-27] MEDS: PRENATAL VITAMINS W/ FOLIC ACID TABLET (FP) PO SCH (09:32)
[2020-02-27] MEDS: BUPRENORPHINE/NALOXONE 4 MG/1 MG FILM PACKET SL SCH (09:32)
[2020-02-27] MEDS: BUDESONIDE/FORMETEROL FUMARATE 160/4.5 mcg INHALER IH SCH ×2 (10:47→21:07)
[2020-02-27] MEDS ORDERED: PT OWN MED DRAWER 7, Y5N ONE (11:55)
[2020-02-27] MEDS: PREGABALIN 75 MG CAPSULE PO SCH ×2 (14:25→21:06)
[2020-02-27] MEDS: hydrOXYzine PAMOATE 50 MG CAPSULE (FP) PO PRN (21:05)
[2020-02-27] MEDS: QUEtiapine FUMARATE 50 MG TABLET PO SCH (21:05)
[2020-02-27] MEDS: MIRTAZAPINE 15 MG TABLET (FP) PO SCH (21:05)
[2020-02-27] MEDS: THIAMINE HCL 100 MG TABLET (FP) PO SCH (21:05)
[2020-02-27] MEDS: MELATONIN 5 MG TABLETS PO SCH (21:05)
[2020-02-28] MEDS ORDERED: PT OWN MED DRAWER 7, Y5N ONE (08:54)
[2020-02-28] MEDS: BUPRENORPHINE/NALOXONE 4 MG/1 MG FILM PACKET SL SCH (09:21)
[2020-02-28] MEDS: PREGABALIN 75 MG CAPSULE PO SCH ×2 (09:21→21:39)
[2020-02-28] MEDS: PRENATAL VITAMINS W/ FOLIC ACID TABLET (FP) PO SCH (09:21)
[2020-02-28] MEDS: LIPASE/PROTEASE/AMYLASE 6,000 UNIT CAPSULE PO SCH ×3 (09:30→17:18)
[2020-02-28] MEDS: LIPASE/PROTEASE/AMYLASE 36,000 UNIT CAPSULE PO SCH ×5 (09:30→20:40)
[2020-02-28] MEDS: BUDESONIDE/FORMETEROL FUMARATE 160/4.5 mcg INHALER IH SCH ×2 (10:09→22:01)
[2020-02-28] MEDS: MIRTAZAPINE 15 MG TABLET (FP) PO SCH (21:37)
[2020-02-28] MEDS: QUEtiapine FUMARATE 50 MG TABLET PO SCH (21:37)
[2020-02-28] MEDS: THIAMINE HCL 100 MG TABLET (FP) PO SCH (21:37)
[2020-02-28] MEDS: MELATONIN 5 MG TABLETS PO SCH (21:38)
[2020-02-28] MEDS: hydrOXYzine PAMOATE 50 MG CAPSULE (FP) PO PRN (21:38)
[2020-02-29] MEDS: PRENATAL VITAMINS W/ FOLIC ACID TABLET (FP) PO SCH (09:50)
[2020-02-29] MEDS: PREGABALIN 75 MG CAPSULE PO SCH ×2 (09:50→21:15)
[2020-02-29] MEDS: BUPRENORPHINE/NALOXONE 4 MG/1 MG FILM PACKET SL SCH ×2 (09:50→17:04)
[2020-02-29] MEDS: BUDESONIDE/FORMETEROL FUMARATE 160/4.5 mcg INHALER IH SCH ×2 (09:51→21:14)
[2020-02-29] MEDS: LIPASE/PROTEASE/AMYLASE 36,000 UNIT CAPSULE PO SCH ×5 (12:13→19:55)
[2020-02-29] MEDS: LIPASE/PROTEASE/AMYLASE 6,000 UNIT CAPSULE PO SCH ×3 (12:13→17:21)
--- NOTE | 2020-02-29 14:46 | PN ---
[facility] COWS - Scale Resting Pulse: 0= [place] 80 or Below Sweatin= Chills/Flushing Restless Observation: 0= Sits Still Pupil Size: 1= Pupils >than Normal Bone or Joint Aches: 2= Severe Diffuse Aches Runny Nose/ Eye Tearin= None GI Upset > 30mins: 0= None Tremor Observation of Outstretched Hands: 0= None Yawning Observation: 0= None Anxiety or Irritability: 2=Irritable/Anxious Goose Flesh Skin: 0=Smooth Skin COWS Score: 6 [facility] Progress Note (SOAP) Subjective: Patient seen for c/o withdrawal symptoms and requesting dose adjustment of suboxone. Objective: 02/29/20 14:42 Vital Signs Temperature 97.8 F 02/29/20 06:21 Pulse Rate 84 02/29/20 06:21 Respiratory Rate 18 02/29/20 06:21 Blood Pressure 109/75 02/29/20 06:21 O2 Sat by Pulse Oximetry (%) 98 02/29/20 06:21 PE alert and oriented x 3 skin warm and dry +perrla, eoms intact bl, pupils mildly dilated, 3mm gi nt, nd ext full rom, amb ad [place] mild restless, anxious Assessment: 02/29/20 14:46 Protracted withdrawal sx suboxone mat opiod dependence Plan: will increase suboxone to 4mg sl bid continue to monitor clinically
[2020-02-29] MEDS ORDERED: PT OWN MED DRAWER 7, Y5N ONE (16:16)
[2020-02-29] MEDS: QUEtiapine FUMARATE 50 MG TABLET PO SCH (21:14)
[2020-02-29] MEDS: MELATONIN 5 MG TABLETS PO SCH (21:14)
[2020-02-29] MEDS: THIAMINE HCL 100 MG TABLET (FP) PO SCH (21:14)
[2020-02-29] MEDS: MIRTAZAPINE 15 MG TABLET (FP) PO SCH (21:14)
[2020-02-29] MEDS: hydrOXYzine PAMOATE 50 MG CAPSULE (FP) PO PRN (21:15)
[2020-03-01] MEDS: LIPASE/PROTEASE/AMYLASE 6,000 UNIT CAPSULE PO SCH ×3 (07:19→17:23)
[2020-03-01] MEDS: LIPASE/PROTEASE/AMYLASE 36,000 UNIT CAPSULE PO SCH ×5 (07:19→20:40)
[2020-03-01] MEDS: BUPRENORPHINE/NALOXONE 4 MG/1 MG FILM PACKET SL SCH ×2 (10:46→17:05)
[2020-03-01] MEDS: PREGABALIN 75 MG CAPSULE PO SCH ×2 (10:46→21:34)
[2020-03-01] MEDS: BUDESONIDE/FORMETEROL FUMARATE 160/4.5 mcg INHALER IH SCH ×2 (10:47→21:35)
[2020-03-01] MEDS: PRENATAL VITAMINS W/ FOLIC ACID TABLET (FP) PO SCH (10:47)
[2020-03-01] MEDS ORDERED: PT OWN MED DRAWER 7, Y5N ONE ×2 (12:17→17:05)
[2020-03-01] MEDS: MELATONIN 5 MG TABLETS PO SCH (21:33)
[2020-03-01] MEDS: THIAMINE HCL 100 MG TABLET (FP) PO SCH (21:33)
[2020-03-01] MEDS: QUEtiapine FUMARATE 50 MG TABLET PO SCH (21:33)
[2020-03-01] MEDS: MIRTAZAPINE 15 MG TABLET (FP) PO SCH (21:33)
[2020-03-01] MEDS: hydrOXYzine PAMOATE 50 MG CAPSULE (FP) PO PRN (21:33)
[2020-03-02] MEDS: LIPASE/PROTEASE/AMYLASE 36,000 UNIT CAPSULE PO SCH ×5 (07:58→22:15)
[2020-03-02] MEDS: LIPASE/PROTEASE/AMYLASE 6,000 UNIT CAPSULE PO SCH ×3 (07:58→17:20)
[2020-03-02] MEDS: hydrOXYzine PAMOATE 50 MG CAPSULE (FP) PO PRN ×2 (10:28→21:09)
[2020-03-02] MEDS: BUPRENORPHINE/NALOXONE 4 MG/1 MG FILM PACKET SL SCH ×2 (10:28→17:04)
[2020-03-02] MEDS: PREGABALIN 75 MG CAPSULE PO SCH ×2 (10:30→21:09)
[2020-03-02] MEDS: BUDESONIDE/FORMETEROL FUMARATE 160/4.5 mcg INHALER IH SCH ×2 (10:30→21:08)
[2020-03-02] MEDS: PRENATAL VITAMINS W/ FOLIC ACID TABLET (FP) PO SCH (10:30)
[2020-03-02] MEDS: MIRTAZAPINE 15 MG TABLET (FP) PO SCH (21:07)
[2020-03-02] MEDS: THIAMINE HCL 100 MG TABLET (FP) PO SCH (21:08)
[2020-03-02] MEDS: MELATONIN 5 MG TABLETS PO SCH (21:08)
[2020-03-02] MEDS: QUEtiapine FUMARATE 50 MG TABLET PO SCH (21:08)
[2020-03-03] MEDS: PRENATAL VITAMINS W/ FOLIC ACID TABLET (FP) PO SCH (10:36)
[2020-03-03] MEDS: PREGABALIN 75 MG CAPSULE PO SCH ×2 (10:36→21:38)
[2020-03-03] MEDS: hydrOXYzine PAMOATE 50 MG CAPSULE (FP) PO PRN ×2 (10:36→21:37)
[2020-03-03] MEDS: BUPRENORPHINE/NALOXONE 4 MG/1 MG FILM PACKET SL SCH ×2 (10:37→17:05)
[2020-03-03] MEDS: BUDESONIDE/FORMETEROL FUMARATE 160/4.5 mcg INHALER IH SCH ×2 (10:37→21:38)
[2020-03-03] MEDS: LIPASE/PROTEASE/AMYLASE 36,000 UNIT CAPSULE PO SCH ×5 (11:50→20:30)
[2020-03-03] MEDS: LIPASE/PROTEASE/AMYLASE 6,000 UNIT CAPSULE PO SCH ×2 (11:50→17:23)
[2020-03-03] MEDS ORDERED: PT OWN MED DRAWER 7, Y5N ONE (14:23)
[2020-03-03] MEDS: MIRTAZAPINE 15 MG TABLET (FP) PO SCH (21:36)
[2020-03-03] MEDS: QUEtiapine FUMARATE 50 MG TABLET PO SCH (21:36)
[2020-03-03] MEDS: THIAMINE HCL 100 MG TABLET (FP) PO SCH (21:37)
[2020-03-03] MEDS: MELATONIN 5 MG TABLETS PO SCH (21:37)
[2020-03-04] MEDS: LIPASE/PROTEASE/AMYLASE 36,000 UNIT CAPSULE PO SCH ×5 (08:55→21:58)
[2020-03-04] MEDS: LIPASE/PROTEASE/AMYLASE 6,000 UNIT CAPSULE PO SCH ×3 (08:55→17:33)
[2020-03-04] MEDS: PREGABALIN 75 MG CAPSULE PO SCH ×2 (09:32→21:58)
[2020-03-04] MEDS: PRENATAL VITAMINS W/ FOLIC ACID TABLET (FP) PO SCH (09:32)
[2020-03-04] MEDS: hydrOXYzine PAMOATE 50 MG CAPSULE (FP) PO PRN ×2 (09:32→21:58)
[2020-03-04] MEDS: BUPRENORPHINE/NALOXONE 4 MG/1 MG FILM PACKET SL SCH ×2 (09:32→17:32)
[2020-03-04] MEDS: BUDESONIDE/FORMETEROL FUMARATE 160/4.5 mcg INHALER IH SCH ×2 (09:33→21:57)
[2020-03-04] MEDS ORDERED: PT OWN MED DRAWER 7, Y5N ONE ×2 (14:21→17:30)
[2020-03-04] MEDS: THIAMINE HCL 100 MG TABLET (FP) PO SCH (21:58)
[2020-03-04] MEDS: MIRTAZAPINE 15 MG TABLET (FP) PO SCH (21:58)
[2020-03-04] MEDS: QUEtiapine FUMARATE 50 MG TABLET PO SCH (21:58)
[2020-03-04] MEDS: MELATONIN 5 MG TABLETS PO SCH (21:59)
[2020-03-05] MEDS: LIPASE/PROTEASE/AMYLASE 6,000 UNIT CAPSULE PO SCH ×3 (08:21→17:32)
[2020-03-05] MEDS: LIPASE/PROTEASE/AMYLASE 36,000 UNIT CAPSULE PO SCH ×5 (08:21→21:16)
[2020-03-05] MEDS: PRENATAL VITAMINS W/ FOLIC ACID TABLET (FP) PO SCH (10:40)
[2020-03-05] MEDS: PREGABALIN 75 MG CAPSULE PO SCH ×2 (10:40→21:17)
[2020-03-05] MEDS: BUDESONIDE/FORMETEROL FUMARATE 160/4.5 mcg INHALER IH SCH ×2 (10:40→21:17)
[2020-03-05] MEDS: hydrOXYzine PAMOATE 50 MG CAPSULE (FP) PO PRN ×2 (10:40→21:18)
[2020-03-05] MEDS: BUPRENORPHINE/NALOXONE 4 MG/1 MG FILM PACKET SL SCH ×2 (10:41→17:14)
[2020-03-05] MEDS: MIRTAZAPINE 15 MG TABLET (FP) PO SCH (21:16)
[2020-03-05] MEDS: MELATONIN 5 MG TABLETS PO SCH (21:16)
[2020-03-05] MEDS: QUEtiapine FUMARATE 50 MG TABLET PO SCH (21:17)
[2020-03-05] MEDS: THIAMINE HCL 100 MG TABLET (FP) PO SCH (21:18)
[2020-03-06] MEDS: LIPASE/PROTEASE/AMYLASE 6,000 UNIT CAPSULE PO SCH ×3 (08:24→17:07)
[2020-03-06] MEDS: LIPASE/PROTEASE/AMYLASE 36,000 UNIT CAPSULE PO SCH ×5 (08:24→22:08)
[2020-03-06] MEDS: BUPRENORPHINE/NALOXONE 4 MG/1 MG FILM PACKET SL SCH ×2 (10:23→17:06)
[2020-03-06] MEDS: PREGABALIN 75 MG CAPSULE PO SCH ×2 (10:23→22:07)
[2020-03-06] MEDS: PRENATAL VITAMINS W/ FOLIC ACID TABLET (FP) PO SCH (10:23)
[2020-03-06] MEDS: BUDESONIDE/FORMETEROL FUMARATE 160/4.5 mcg INHALER IH SCH ×2 (10:24→22:07)
--- NOTE | 2020-03-06 12:01 | PN ---
S Progress Note Note: Psychiatric nurse practitioner note: Patient scheduled for discharge tomorrow. A 30 day prescription of Seroquel 100mg HS + Remeron 30mg HS was electronically sent to [facility], [address] [place] [address].
[2020-03-06] MEDS ORDERED: PT OWN MED DRAWER 7, Y5N ONE ×2 (12:19→17:04)
[2020-03-06] MEDS: THIAMINE HCL 100 MG TABLET (FP) PO SCH (22:07)
[2020-03-06] MEDS: QUEtiapine FUMARATE 50 MG TABLET PO SCH (22:07)
[2020-03-06] MEDS: MIRTAZAPINE 15 MG TABLET (FP) PO SCH (22:07)
[2020-03-06] MEDS: hydrOXYzine PAMOATE 50 MG CAPSULE (FP) PO PRN (22:07)
[2020-03-06] MEDS: MELATONIN 5 MG TABLETS PO SCH (22:08)
[2020-03-07] MEDS: PREGABALIN 75 MG CAPSULE PO SCH ×2 (09:54→21:34)
[2020-03-07] MEDS: BUPRENORPHINE/NALOXONE 4 MG/1 MG FILM PACKET SL SCH (09:54)
[2020-03-07] MEDS: PRENATAL VITAMINS W/ FOLIC ACID TABLET (FP) PO SCH (09:54)
[2020-03-07] MEDS: BUDESONIDE/FORMETEROL FUMARATE 160/4.5 mcg INHALER IH SCH ×2 (09:55→21:35)
[2020-03-07] MEDS: LIPASE/PROTEASE/AMYLASE 36,000 UNIT CAPSULE PO SCH ×5 (09:56→20:35)
[2020-03-07] MEDS: LIPASE/PROTEASE/AMYLASE 6,000 UNIT CAPSULE PO SCH ×3 (09:56→17:43)
[2020-03-07] MEDS ORDERED: PT OWN MED DRAWER 7, Y5N ONE ×2 (12:11→16:03)
[2020-03-07] MEDS: THIAMINE HCL 100 MG TABLET (FP) PO SCH (21:33)
[2020-03-07] MEDS: MELATONIN 5 MG TABLETS PO SCH (21:33)
[2020-03-07] MEDS: MIRTAZAPINE 15 MG TABLET (FP) PO SCH (21:33)
[2020-03-07] MEDS: hydrOXYzine PAMOATE 50 MG CAPSULE (FP) PO PRN (21:33)
[2020-03-07] MEDS: QUEtiapine FUMARATE 50 MG TABLET PO SCH (21:33)
[2020-03-08] MEDS: LIPASE/PROTEASE/AMYLASE 36,000 UNIT CAPSULE PO SCH ×5 (08:35→21:07)
[2020-03-08] MEDS ORDERED: PT OWN MED DRAWER 7, Y5N ONE (08:36)
[2020-03-08] MEDS: PREGABALIN 75 MG CAPSULE PO SCH ×2 (09:34→21:06)
[2020-03-08] MEDS: PRENATAL VITAMINS W/ FOLIC ACID TABLET (FP) PO SCH (09:35)
[2020-03-08] MEDS: hydrOXYzine PAMOATE 50 MG CAPSULE (FP) PO PRN ×2 (09:35→21:06)
[2020-03-08] MEDS: LIPASE/PROTEASE/AMYLASE 6,000 UNIT CAPSULE PO SCH ×3 (09:36→17:22)
[2020-03-08] MEDS: BUDESONIDE/FORMETEROL FUMARATE 160/4.5 mcg INHALER IH SCH ×2 (10:32→21:07)
[2020-03-08] MEDS ORDERED: BUPRENORPHINE/NALOXONE 4 MG/1 MG FILM PACKET SL ONE (11:00)
[2020-03-08] MEDS: BUPRENORPHINE/NALOXONE 4 MG/1 MG FILM PACKET SL SCH (17:05)
[2020-03-08] MEDS: MIRTAZAPINE 15 MG TABLET (FP) PO SCH (21:05)
[2020-03-08] MEDS: QUEtiapine FUMARATE 50 MG TABLET PO SCH (21:05)
[2020-03-08] MEDS: THIAMINE HCL 100 MG TABLET (FP) PO SCH (21:05)
[2020-03-08] MEDS: MELATONIN 5 MG TABLETS PO SCH (21:05)
[2020-03-09] MEDS: LIPASE/PROTEASE/AMYLASE 6,000 UNIT CAPSULE PO SCH ×3 (08:44→18:11)
[2020-03-09] MEDS: PRENATAL VITAMINS W/ FOLIC ACID TABLET (FP) PO SCH (10:09)
[2020-03-09] MEDS: BUPRENORPHINE/NALOXONE 4 MG/1 MG FILM PACKET SL SCH ×2 (10:09→17:15)
[2020-03-09] MEDS: PREGABALIN 75 MG CAPSULE PO SCH ×2 (10:09→21:54)
[2020-03-09] MEDS: hydrOXYzine PAMOATE 50 MG CAPSULE (FP) PO PRN ×2 (10:09→21:54)
[2020-03-09] MEDS: BUDESONIDE/FORMETEROL FUMARATE 160/4.5 mcg INHALER IH SCH ×2 (10:11→21:55)
[2020-03-09] MEDS: LIPASE/PROTEASE/AMYLASE 36,000 UNIT CAPSULE PO SCH ×5 (10:43→21:55)
[2020-03-09] MEDS ORDERED: PT OWN MED DRAWER 7, Y5N ONE ×3 (18:13→23:33)
[2020-03-09] MEDS: THIAMINE HCL 100 MG TABLET (FP) PO SCH (21:54)
[2020-03-09] MEDS: QUEtiapine FUMARATE 50 MG TABLET PO SCH (21:54)
[2020-03-09] MEDS: MIRTAZAPINE 15 MG TABLET (FP) PO SCH (21:54)
[2020-03-09] MEDS: MELATONIN 5 MG TABLETS PO SCH (21:55)
[2020-03-10] MEDS: LIPASE/PROTEASE/AMYLASE 36,000 UNIT CAPSULE PO SCH ×5 (08:52→21:26)
[2020-03-10] MEDS: LIPASE/PROTEASE/AMYLASE 6,000 UNIT CAPSULE PO SCH ×3 (08:53→17:53)
[2020-03-10] MEDS: BUPRENORPHINE/NALOXONE 4 MG/1 MG FILM PACKET SL SCH ×2 (10:14→17:10)
[2020-03-10] MEDS: PRENATAL VITAMINS W/ FOLIC ACID TABLET (FP) PO SCH (10:14)
[2020-03-10] MEDS: PREGABALIN 75 MG CAPSULE PO SCH ×2 (10:15→21:25)
[2020-03-10] MEDS: hydrOXYzine PAMOATE 50 MG CAPSULE (FP) PO PRN ×2 (10:15→21:26)
[2020-03-10] MEDS: BUDESONIDE/FORMETEROL FUMARATE 160/4.5 mcg INHALER IH SCH ×2 (10:16→21:26)
[2020-03-10] MEDS ORDERED: PT OWN MED DRAWER 7, Y5N ONE ×2 (15:48→21:25)
[2020-03-10] MEDS: MELATONIN 5 MG TABLETS PO SCH (21:24)
[2020-03-10] MEDS: QUEtiapine FUMARATE 50 MG TABLET PO SCH (21:24)
[2020-03-10] MEDS: MIRTAZAPINE 15 MG TABLET (FP) PO SCH (21:24)
[2020-03-10] MEDS: THIAMINE HCL 100 MG TABLET (FP) PO SCH (21:24)
[2020-03-11] MEDS: LIPASE/PROTEASE/AMYLASE 6,000 UNIT CAPSULE PO SCH ×3 (08:50→17:45)
[2020-03-11] MEDS: LIPASE/PROTEASE/AMYLASE 36,000 UNIT CAPSULE PO SCH ×4 (08:50→20:25)
[2020-03-11] MEDS: PREGABALIN 75 MG CAPSULE PO SCH ×2 (10:05→21:23)
[2020-03-11] MEDS: PRENATAL VITAMINS W/ FOLIC ACID TABLET (FP) PO SCH (10:05)
[2020-03-11] MEDS: BUPRENORPHINE/NALOXONE 4 MG/1 MG FILM PACKET SL SCH ×2 (10:05→17:08)
[2020-03-11] MEDS: BUDESONIDE/FORMETEROL FUMARATE 160/4.5 mcg INHALER IH SCH ×2 (10:06→21:23)
[2020-03-11] MEDS ORDERED: PT OWN MED DRAWER 7, Y5N ONE (12:07)
[2020-03-11] MEDS: MIRTAZAPINE 15 MG TABLET (FP) PO SCH (21:22)
[2020-03-11] MEDS: THIAMINE HCL 100 MG TABLET (FP) PO SCH (21:22)
[2020-03-11] MEDS: hydrOXYzine PAMOATE 50 MG CAPSULE (FP) PO PRN (21:22)
[2020-03-11] MEDS: MELATONIN 5 MG TABLETS PO SCH (21:22)
[2020-03-11] MEDS: QUEtiapine FUMARATE 50 MG TABLET PO SCH (21:22)
[2020-03-12] MEDS: LIPASE/PROTEASE/AMYLASE 6,000 UNIT CAPSULE PO SCH ×3 (09:00→17:52)
[2020-03-12] MEDS: LIPASE/PROTEASE/AMYLASE 36,000 UNIT CAPSULE PO SCH ×5 (09:00→20:30)
[2020-03-12] MEDS: BUPRENORPHINE/NALOXONE 4 MG/1 MG FILM PACKET SL SCH ×2 (09:36→17:04)
[2020-03-12] MEDS: PRENATAL VITAMINS W/ FOLIC ACID TABLET (FP) PO SCH (09:36)
[2020-03-12] MEDS: PREGABALIN 75 MG CAPSULE PO SCH ×2 (09:37→21:03)
[2020-03-12] MEDS: BUDESONIDE/FORMETEROL FUMARATE 160/4.5 mcg INHALER IH SCH ×2 (09:37→21:04)
[2020-03-12] MEDS ORDERED: PT OWN MED DRAWER 7, Y5N ONE (10:30)
[2020-03-12] MEDS: QUEtiapine FUMARATE 50 MG TABLET PO SCH (21:02)
[2020-03-12] MEDS: hydrOXYzine PAMOATE 50 MG CAPSULE (FP) PO PRN (21:02)
[2020-03-12] MEDS: THIAMINE HCL 100 MG TABLET (FP) PO SCH (21:02)
[2020-03-12] MEDS: MIRTAZAPINE 15 MG TABLET (FP) PO SCH (21:03)
[2020-03-12] MEDS: MELATONIN 5 MG TABLETS PO SCH (21:03)
[2020-03-13] MEDS: BUPRENORPHINE/NALOXONE 4 MG/1 MG FILM PACKET SL SCH ×2 (10:13→17:05)
[2020-03-13] MEDS: PREGABALIN 75 MG CAPSULE PO SCH ×2 (10:13→21:27)
[2020-03-13] MEDS: BUDESONIDE/FORMETEROL FUMARATE 160/4.5 mcg INHALER IH SCH ×2 (10:13→21:28)
[2020-03-13] MEDS: PRENATAL VITAMINS W/ FOLIC ACID TABLET (FP) PO SCH (10:13)
[2020-03-13] MEDS: LIPASE/PROTEASE/AMYLASE 36,000 UNIT CAPSULE PO SCH ×5 (10:14→20:30)
[2020-03-13] MEDS: LIPASE/PROTEASE/AMYLASE 6,000 UNIT CAPSULE PO SCH ×3 (10:14→17:22)
[2020-03-13] MEDS ORDERED: PT OWN MED DRAWER 7, Y5N ONE ×2 (11:56→15:09)
[2020-03-13] MEDS: MIRTAZAPINE 15 MG TABLET (FP) PO SCH (21:26)
[2020-03-13] MEDS: QUEtiapine FUMARATE 50 MG TABLET PO SCH (21:26)
[2020-03-13] MEDS: hydrOXYzine PAMOATE 50 MG CAPSULE (FP) PO PRN (21:26)
[2020-03-13] MEDS: THIAMINE HCL 100 MG TABLET (FP) PO SCH (21:26)
[2020-03-13] MEDS: MELATONIN 5 MG TABLETS PO SCH (21:27)
[2020-03-14 07:08] VITALS: BP 109/78; PULSE 78; TEMP 97.2
[2020-03-14] MEDS: LIPASE/PROTEASE/AMYLASE 36,000 UNIT CAPSULE PO SCH (07:44)
[2020-03-14] MEDS: PREGABALIN 75 MG CAPSULE PO SCH (09:10)
[2020-03-14] MEDS: BUPRENORPHINE/NALOXONE 4 MG/1 MG FILM PACKET SL SCH (09:10)
[2020-03-14] MEDS: PRENATAL VITAMINS W/ FOLIC ACID TABLET (FP) PO SCH (09:10)
[2020-03-14] MEDS: hydrOXYzine PAMOATE 50 MG CAPSULE (FP) PO PRN (09:10)
[2020-03-14] MEDS: LIPASE/PROTEASE/AMYLASE 6,000 UNIT CAPSULE PO SCH (09:13)
[2020-03-14] MEDS ORDERED: PT OWN MED DRAWER 7, Y5N ONE (09:15)
[2020-03-14] MEDS: BUDESONIDE/FORMETEROL FUMARATE 160/4.5 mcg INHALER IH SCH (09:15)
--- NOTE | 2020-03-14 12:06 | DS ---
[facility] Rehab Discharge Summary - [facility] Rehab Discharge Summary Admission Date: 02/17/20 Discharge Date: 03/14/20 - History Present History: Opioid dependence, Sedative dependence - Discharge Physical Exam Vital Signs: Vital Signs Temperature 97.2 F L 03/14/20 06:14 Pulse Rate 78 03/14/20 06:14 Respiratory Rate 18 03/14/20 06:14 Blood Pressure 109/78 03/14/20 06:14 O2 Sat by Pulse Oximetry (%) 96 03/14/20 06:14 ROS: DENIES COUGH, FEVER, SOB, CHEST PAIN, BODY ACHES, SWEATS AND HEADACHES. PE: ALERT AND ORIENTED X 3 SKIN WARM AND DRY, COLOR PALE NECK SUPPLE, NO JVD CAR S1S2, RRR RESP CTA BL, NO WHEEZES OR RALES GI FLAT, NT, ND EXT FULL ROM, AMB AD BLAISE NO TREMORS DENIES SI/HI A/P: OPIOD/SEDATIVE DEPENDENCE PATIENT IS MEDICALLY STABLE FOR DISCHARGE AFTERCARE ARRANGED FOR [facility], 03/14/2020 10:30AM [facility], 03/15/2020 AT 1PM - Treatment Discharge Condition: Discharge condition good, Rehabilitated safely, Responded well, Outpatient referral accepted Hospital Course: PATIENT D/C FROM REHAB TODAY FOR OPIOD/SEDATIVE DEPENDENCE. HE IS MEDICALLY STABLE AND DENIES SI/HI. DURING COURSE OF TREATMENT, PATIENT ATTENDED GROUP MEETINGS, 1:1 SESSIONS WITH COUNSELING TEAM AND EVALUATED AND TREATED WITH PSYCH TEAM. HE ALSO HAD CXR COMPLETED DUE TO C/O LEFT CHEST DISCOMFORT. PATIENT MEDICALLY ADVISED TO FOLLOW UP WITH COAL SAMPLE TESTER RECOMMENDED (HAS HX OF CYSTIC FIBROSIS). AFTERCARE ARRANGED FOR [facility] ON 03/14/2020 AT 10:30AM AND [facility] AT 03/15/2020 AT 1PM. PATIENT ALSO MEDICALLY ADVISED TO CONTINUE WITH OTP TO PREVENT RELAPSE. Ambulatory Orders Pregabalin [Lyrica -] 150 mg PO TID 06/24/18 Lipase/Protease/Amylase [Arti Hawkins 24,000 Units Capsule] 6 cap PO ASDIR 06/25/18 Lipase/Protease/Amylase [Arti Hawkins 24,000 Units Capsule] 10 cap PO TIDCM 06/25/18 Albuterol Sulfate Inhaler - [Ventolin HFA Inhaler -] 2 inh PO Q4H PRN 01/15/19 Budesonide/Formeterol Fumarate [SYMBICORT 160/4.5mcg -] 1 inh PO BID 01/15/19 Mirtazapine [Remeron -] 15 mg PO HS 02/17/20 Mirtazapine [Remeron -] 30 mg PO HS #30 tablet 03/06/20 Quetiapine Fumarate [Seroquel -] 100 mg PO HS #30 tablet 03/06/20 Pregabalin [Lyrica -] 150 mg PO BID #28 capsule MDD 300mg 03/14/20 - Medication Discharge Medications: Ambulatory Orders Pregabalin [Lyrica -] 150 mg PO TID 06/24/18 Lipase/Protease/Amylase [Arti Hawkins 24,000 Units Capsule] 6 cap PO ASDIR 06/25/18 Lipase/Protease/Amylase [Arti Hawkins 24,000 Units Capsule] 10 cap PO TIDCM 06/25/18 Albuterol Sulfate Inhaler - [Ventolin HFA Inhaler -] 2 inh PO Q4H PRN 01/15/19 Budesonide/Formeterol Fumarate [SYMBICORT 160/4.5mcg -] 1 inh PO BID 01/15/19 Mirtazapine [Remeron -] 15 mg PO HS 02/17/20 Mirtazapine [Remeron -] 30 mg PO HS #30 tablet 03/06/20 Quetiapine Fumarate [Seroquel -] 100 mg PO HS #30 tablet 03/06/20 Pregabalin [Lyrica -] 150 mg PO BID #28 capsule MDD 300mg 03/14/20 - Medication-Assisted Treatment (MAT) Medication-Assisted Treatment (MAT): Yes Medication Prescribed: Buprenorphine MAT Follow-up Referral: [facility] - Discharge Instructions Diet, activity, other medical instructions: Diet: REG TOLERATED Activity: AMB AD BLAISE Other medical instructions: F/U WITH PCP RECOMMENDED - Follow-up Referral Minutes to complete discharge: 40 - AMA Did Patient Leave Against Medical Advice: No
== END 2020-03-14 09:50 | disposition home or self-care (01) | DRG 772 ==
LOC: YASAS 15:02 → Y3W 15:04
PROVIDERS: ADMIT Allergy & Immunology; ATTEND Allergy & Immunology
PROC: HZ42ZZZ Group Counseling for Substance Abuse Treatment, Cognitive-Behavioral (ICD-10-PCS; principal; 2020-03-14)
DX: F11.20 Opioid dependence, uncomplicated (principal); F13.20 Sedative, hypnotic or anxiolytic dependence, uncomplicated; F12.10 Cannabis abuse, uncomplicated; F19.282 Other psychoactive substance dependence with psychoactive substance-induced sleep disorder; F41.9 Anxiety disorder, unspecified; E84.9 Cystic fibrosis, unspecified; K21.9 Gastro-esophageal reflux disease without esophagitis; R07.89 Other chest pain; R06.02 Shortness of breath; R91.1 Solitary pulmonary nodule; Z88.1 Allergy status to other antibiotic agents; Z56.0 Unemployment, unspecified; Z59.0 Homelessness
CPT/HCPCS: 71046-TC-FY

== ENCOUNTER 2020-04-20 19:07 | Inpatient (IN) | payer OTHER ==
[2020-04-20 19:50] VITALS: BMI 20.5
[2020-04-20] MEDS ORDERED: IBUPROFEN 400 MG TABLET (FP) PO PRN (20:23)
[2020-04-20] MEDS ORDERED: BISMUTH SUBSALICYLATE 524 MG/30 ML UD PO PRN (20:23)
[2020-04-20] MEDS ORDERED: METHOCARBAMOL 500 MG TABLET PO PRN (20:23)
[2020-04-20] MEDS ORDERED: MENTHOL/PHENOL 1 EACH UD MM PRN (20:23)
[2020-04-20] MEDS ORDERED: METHADONE HCL 10 MG TABLET (FOR DETOX USE ONLY) PO ONE (20:23)
[2020-04-20] MEDS ORDERED: ONDANSETRON *ODT* 4 MG TABLET SL PRN (20:23)
[2020-04-20] MEDS ORDERED: MELATONIN 5 MG TABLETS PO PRN (20:23)
[2020-04-20] MEDS ORDERED: MAGNESIUM CITRATE 300 ML BOTTLE PO PRN (20:23)
[2020-04-20] MEDS ORDERED: MAGNESIUM HYDROX 2400MG/30ML ORAL SUSPENSION 30 ML CUP PO PRN (20:23)
[2020-04-20] MEDS ORDERED: ACETAMINOPHEN 325 MG TABLET (FP) PO PRN ×2 (20:23)
[2020-04-20] MEDS ORDERED: cloNIDine HCL 0.1 MG TABLET PO PRN (20:23)
[2020-04-20] MEDS ORDERED: MAG HYDROX/AL HYDROX/SIMETH 30 ML UNIT-DOSE CUP PO PRN (20:23)
[2020-04-20] MEDS ORDERED: NICOTINE POLACRILEX 2 MG GUM BUC PRN (20:23)
[2020-04-20] MEDS: PATIENT'S OWN MEDICATION (NON-FORMULARY) (Lipase/Protease/Amylase [Creon Dr 24,000 Units C PO SCH (21:47)
[2020-04-20] MEDS: THIAMINE HCL 100 MG TABLET (FP) PO SCH (21:49)
[2020-04-20] MEDS ORDERED: TEZACAFTOR PO SCH (22:00)
[2020-04-20] MEDS ORDERED: PATIENT'S OWN MEDICATION (NON-FORMULARY) (Lipase/Protease/Amylase [Creon Dr 24,000 Units C PO SCH (22:00)
[2020-04-20] MEDS ORDERED: [UNRECOGNIZED DRUG - OTHER] PO SCH (22:00)
[2020-04-20] MEDS ORDERED: IVACAFTOR PO SCH (22:00)
[2020-04-20] MEDS ORDERED: ELEXACAFTOR PO SCH (22:00)
[2020-04-21] MEDS ORDERED: ALBUTEROL SO4 HFA INHALER IH PRN (08:46)
[2020-04-21] MEDS ORDERED: LIPASE/PROTEASE/AMYLASE 36,000 UNIT CAPSULE PO PRN ×3 (08:51→11:38)
[2020-04-21] MEDS ORDERED: METHADONE HCL 5 MG TABLET (FOR DETOX USE ONLY) ONE (09:38)
[2020-04-21] MEDS ORDERED: METHADONE HCL 10 MG TABLET (FOR DETOX USE ONLY) ONE (09:39)
[2020-04-21] MEDS ORDERED: METHADONE (DETOX) 20 MG, METHADONE (DETOX) 5 MG PO ONE (10:00)
[2020-04-21 10:20] LABS: HEMATOCRIT 40.2 % (35.4-49); HEMOGLOBIN 12.6 GM/dL (11.7-16.9); MCHC 31.4 g/dl (32.0-35.9); MEAN CELL VOLUME 79.5 fl (80-96); MEAN PLT VOLUME 10.5 fl (7.5-11.1); PLATELET COUNT 71 K/MM3 (134-434); RBC 5.06 M/mm3 (4.00-5.60); RDW 16.8 % (11.9-15.9); WHITE BLOOD COUNT 5.6 K/mm3 (4.0-10.0)
[2020-04-21 10:43] LABS: POTASSIUM 4.4 mmol/L (3.5-5.1)
[2020-04-21 10:49] LABS: ALBUMIN 2.8 g/dl (3.4-5.0); BLOOD UREA NITROGEN 10.1 mg/dL (7-18); CALCIUM 8.3 mg/dL (8.5-10.1)
[2020-04-21 10:53] LABS: BILIRUBIN,TOTAL 0.6 mg/dL (0.2-1); CREATININE 0.8 mg/dL (0.55-1.3)
[2020-04-21] MEDS: PRENATAL VITAMINS W/ FOLIC ACID TABLET (FP) PO SCH (11:01)
[2020-04-21] MEDS: BUDESONIDE/FORMETEROL FUMARATE 160/4.5 mcg INHALER IH SCH ×2 (11:01→22:57)
[2020-04-21] MEDS: NICOTINE 7 MG/24 HOURS TOPICAL PATCH TD SCH (11:01)
[2020-04-21] MEDS: diazePAM 5 MG TABLET PO PRN ×3 (11:26→20:19)
[2020-04-21] MEDS: QUEtiapine FUMARATE 50 MG TABLET PO SCH ×2 (12:55→22:17)
[2020-04-21] MEDS ORDERED: AMYLASE PO PRN (13:05)
[2020-04-21] MEDS ORDERED: PROTEASE PO PRN (13:05)
[2020-04-21] MEDS ORDERED: LIPASE PO PRN (13:05)
[2020-04-21] MEDS: PREGABALIN 75 MG CAPSULE PO SCH ×2 (13:49→22:18)
[2020-04-21] MEDS: PATIENT'S OWN MEDICATION (NON-FORMULARY) (Lipase/Protease/Amylase [Creon Dr 24,000 Units C PO SCH ×3 (13:50→17:11)
[2020-04-21] MEDS: ELEXACAFTOR PO SCH ×2 (15:08→20:08)
[2020-04-21] MEDS: IVACAFTOR PO SCH ×2 (15:08→20:08)
[2020-04-21] MEDS: [UNRECOGNIZED DRUG - OTHER] PO SCH (15:08)
[2020-04-21] MEDS: TEZACAFTOR PO SCH ×2 (15:08→20:08)
[2020-04-21] MEDS: PATIENT'S OWN MEDICATION (NON-FORMULARY) (Lipase/Protease/Amylase [Creon Dr 24,000 Units C PO PRN (20:06)
[2020-04-21] MEDS: [UNRECOGNIZED DRUG - OTHER] PO SCH (20:08)
[2020-04-21] MEDS: MIRTAZAPINE 15 MG TABLET (FP) PO SCH (22:17)
[2020-04-21] MEDS: MELATONIN 5 MG TABLETS PO PRN (22:18)
[2020-04-21] MEDS: THIAMINE HCL 100 MG TABLET (FP) PO SCH (22:19)
[2020-04-22] MEDS: PREGABALIN 75 MG CAPSULE PO SCH ×3 (07:47→21:23)
[2020-04-22] MEDS: diazePAM 5 MG TABLET PO PRN ×4 (09:05→22:01)
[2020-04-22] MEDS ORDERED: METHADONE HCL 10 MG TABLET (FOR DETOX USE ONLY) PO ONE (10:00)
[2020-04-22] MEDS: PATIENT'S OWN MEDICATION (NON-FORMULARY) (Lipase/Protease/Amylase [Creon Dr 24,000 Units C PO SCH ×4 (11:15→17:04)
[2020-04-22] MEDS: PRENATAL VITAMINS W/ FOLIC ACID TABLET (FP) PO SCH (11:15)
[2020-04-22] MEDS: QUEtiapine FUMARATE 50 MG TABLET PO SCH ×2 (11:15→21:23)
[2020-04-22] MEDS: BUDESONIDE/FORMETEROL FUMARATE 160/4.5 mcg INHALER IH SCH ×2 (11:15→22:44)
[2020-04-22] MEDS: NICOTINE 7 MG/24 HOURS TOPICAL PATCH TD SCH (11:17)
[2020-04-22] MEDS: TEZACAFTOR PO SCH ×2 (12:38→21:23)
[2020-04-22] MEDS: IVACAFTOR PO SCH ×2 (12:38→21:23)
[2020-04-22] MEDS: ELEXACAFTOR PO SCH ×2 (12:38→21:23)
[2020-04-22] MEDS: [UNRECOGNIZED DRUG - OTHER] PO SCH (12:38)
[2020-04-22] MEDS: PATIENT'S OWN MEDICATION (NON-FORMULARY) (Lipase/Protease/Amylase [Creon Dr 24,000 Units C PO PRN (13:26)
[2020-04-22] MEDS: hydrOXYzine PAMOATE 25 MG CAPSULE (FP) PO PRN ×2 (14:49→21:23)
[2020-04-22] MEDS: THIAMINE HCL 100 MG TABLET (FP) PO SCH (21:23)
[2020-04-22] MEDS: [UNRECOGNIZED DRUG - OTHER] PO SCH (21:23)
[2020-04-22] MEDS: MIRTAZAPINE 15 MG TABLET (FP) PO SCH (21:23)
[2020-04-22] MEDS: MELATONIN 5 MG TABLETS PO PRN (22:02)
[2020-04-23] MEDS: PREGABALIN 75 MG CAPSULE PO SCH ×3 (05:47→21:54)
[2020-04-23] MEDS: diazePAM 5 MG TABLET PO PRN ×4 (05:47→19:02)
[2020-04-23] MEDS: hydrOXYzine PAMOATE 25 MG CAPSULE (FP) PO PRN (05:48)
[2020-04-23] MEDS ORDERED: METHADONE HCL 10 MG TABLET (FOR DETOX USE ONLY) ONE (08:52)
[2020-04-23] MEDS ORDERED: METHADONE HCL 5 MG TABLET (FOR DETOX USE ONLY) ONE (08:52)
[2020-04-23] MEDS ORDERED: METHADONE (DETOX) 10 MG, METHADONE (DETOX) 5 MG PO ONE (10:00)
[2020-04-23] MEDS: PRENATAL VITAMINS W/ FOLIC ACID TABLET (FP) PO SCH (10:12)
[2020-04-23] MEDS: PATIENT'S OWN MEDICATION (NON-FORMULARY) (Lipase/Protease/Amylase [Creon Dr 24,000 Units C PO SCH ×3 (10:13→16:53)
[2020-04-23] MEDS: [UNRECOGNIZED DRUG - OTHER] PO SCH (10:13)
[2020-04-23] MEDS: ELEXACAFTOR PO SCH ×2 (10:13→21:56)
[2020-04-23] MEDS: IVACAFTOR PO SCH ×2 (10:13→21:56)
[2020-04-23] MEDS: TEZACAFTOR PO SCH ×2 (10:13→21:56)
[2020-04-23] MEDS: NICOTINE 7 MG/24 HOURS TOPICAL PATCH TD SCH ×2 (10:14→12:27)
[2020-04-23] MEDS: BUDESONIDE/FORMETEROL FUMARATE 160/4.5 mcg INHALER IH SCH ×2 (10:17→21:56)
[2020-04-23] MEDS: QUEtiapine FUMARATE 50 MG TABLET PO SCH ×2 (10:17→21:54)
[2020-04-23] MEDS: hydrOXYzine PAMOATE 50 MG CAPSULE (FP) PO PRN (16:53)
[2020-04-23] MEDS: PATIENT'S OWN MEDICATION (NON-FORMULARY) (Lipase/Protease/Amylase [Creon Dr 24,000 Units C PO PRN (21:27)
[2020-04-23] MEDS: THIAMINE HCL 100 MG TABLET (FP) PO SCH (21:54)
[2020-04-23] MEDS: MIRTAZAPINE 15 MG TABLET (FP) PO SCH (21:54)
[2020-04-23] MEDS: [UNRECOGNIZED DRUG - OTHER] PO SCH (21:56)
[2020-04-23] MEDS: MELATONIN 5 MG TABLETS PO PRN (21:59)
[2020-04-24] MEDS: PREGABALIN 75 MG CAPSULE PO SCH ×3 (06:31→21:49)
[2020-04-24] MEDS: diazePAM 5 MG TABLET PO PRN (06:32)
[2020-04-24] MEDS: PATIENT'S OWN MEDICATION (NON-FORMULARY) (Lipase/Protease/Amylase [Creon Dr 24,000 Units C PO SCH ×3 (09:58→16:42)
[2020-04-24] MEDS ORDERED: METHADONE HCL 10 MG TABLET (FOR DETOX USE ONLY) PO ONE (10:00)
[2020-04-24] MEDS: NICOTINE 7 MG/24 HOURS TOPICAL PATCH TD SCH (10:09)
[2020-04-24] MEDS: PRENATAL VITAMINS W/ FOLIC ACID TABLET (FP) PO SCH (10:09)
[2020-04-24] MEDS: BUDESONIDE/FORMETEROL FUMARATE 160/4.5 mcg INHALER IH SCH ×2 (10:12→22:45)
[2020-04-24] MEDS: [UNRECOGNIZED DRUG - OTHER] PO SCH (10:15)
[2020-04-24] MEDS: ELEXACAFTOR PO SCH ×2 (10:15→21:51)
[2020-04-24] MEDS: IVACAFTOR PO SCH ×2 (10:15→21:51)
[2020-04-24] MEDS: TEZACAFTOR PO SCH ×2 (10:15→21:51)
[2020-04-24] MEDS: QUEtiapine FUMARATE 50 MG TABLET PO SCH ×2 (11:38→21:49)
[2020-04-24] MEDS: hydrOXYzine PAMOATE 50 MG CAPSULE (FP) PO PRN ×2 (15:51→21:49)
[2020-04-24] MEDS: PATIENT'S OWN MEDICATION (NON-FORMULARY) (Lipase/Protease/Amylase [Creon Dr 24,000 Units C PO PRN ×2 (18:54→21:20)
[2020-04-24] MEDS: MIRTAZAPINE 15 MG TABLET (FP) PO SCH (21:49)
[2020-04-24] MEDS: MELATONIN 5 MG TABLETS PO PRN (21:49)
[2020-04-24] MEDS: THIAMINE HCL 100 MG TABLET (FP) PO SCH (21:49)
[2020-04-24] MEDS: [UNRECOGNIZED DRUG - OTHER] PO SCH (21:51)
[2020-04-25] MEDS ORDERED: METHADONE HCL 5 MG TABLET (FOR DETOX USE ONLY) PO ONE (06:00)
[2020-04-25] MEDS: PREGABALIN 75 MG CAPSULE PO SCH (07:02)
[2020-04-25] MEDS: PATIENT'S OWN MEDICATION (NON-FORMULARY) (Lipase/Protease/Amylase [Creon Dr 24,000 Units C PO PRN (08:07)
[2020-04-25] MEDS: PATIENT'S OWN MEDICATION (NON-FORMULARY) (Lipase/Protease/Amylase [Creon Dr 24,000 Units C PO SCH (08:08)
[2020-04-25] MEDS: NICOTINE 7 MG/24 HOURS TOPICAL PATCH TD SCH (09:48)
[2020-04-25] MEDS: BUDESONIDE/FORMETEROL FUMARATE 160/4.5 mcg INHALER IH SCH (09:52)
[2020-04-25] MEDS: QUEtiapine FUMARATE 50 MG TABLET PO SCH (09:52)
[2020-04-25] MEDS: PRENATAL VITAMINS W/ FOLIC ACID TABLET (FP) PO SCH (09:52)
[2020-04-25] MEDS: TEZACAFTOR PO SCH (09:52)
[2020-04-25] MEDS: [UNRECOGNIZED DRUG - OTHER] PO SCH (09:52)
[2020-04-25] MEDS: IVACAFTOR PO SCH (09:52)
[2020-04-25] MEDS: ELEXACAFTOR PO SCH (09:52)
[2020-04-25 10:33] VITALS: BP 115/75; PULSE 121; TEMP 97.5
== END 2020-04-25 10:37 | disposition home or self-care (01) | DRG 773 ==
LOC: YASAS 19:07 → Y6N 20:28
PROVIDERS: ADMIT Allergy & Immunology; ATTEND Allergy & Immunology
PROC: HZ2ZZZZ Detoxification Services for Substance Abuse Treatment (ICD-10-PCS; principal; 2020-04-20)
DX: F11.23 Opioid dependence with withdrawal (principal); F13.20 Sedative, hypnotic or anxiolytic dependence, uncomplicated; F14.10 Cocaine abuse, uncomplicated; F12.10 Cannabis abuse, uncomplicated; F41.9 Anxiety disorder, unspecified; F32.9 Major depressive disorder, single episode, unspecified; D69.6 Thrombocytopenia, unspecified; E46 Unspecified protein-calorie malnutrition; Z68.20 Body mass index [BMI] 20.0-20.9, adult; E84.9 Cystic fibrosis, unspecified; K21.9 Gastro-esophageal reflux disease without esophagitis; R74.01 Elevation of levels of liver transaminase levels; Z87.19 Personal history of other diseases of the digestive system; Z88.1 Allergy status to other antibiotic agents
CPT/HCPCS: 36415; 80053; 85027; 86780; C9803; U0003

== ENCOUNTER 2020-05-31 10:01 | Inpatient (IN) | payer OTHER ==
[2020-05-31 11:00] VITALS: BMI 21.3
[2020-05-31] MEDS ORDERED: METHOCARBAMOL 500 MG TABLET PO PRN (12:37)
[2020-05-31] MEDS ORDERED: ONDANSETRON *ODT* 4 MG TABLET SL PRN (12:37)
[2020-05-31] MEDS ORDERED: BISMUTH SUBSALICYLATE 524 MG/30 ML UD PO PRN (12:37)
[2020-05-31] MEDS ORDERED: MENTHOL/PHENOL 1 EACH UD MM PRN (12:37)
[2020-05-31] MEDS ORDERED: NICOTINE POLACRILEX 2 MG GUM BUC PRN (12:37)
[2020-05-31] MEDS ORDERED: cloNIDine HCL 0.1 MG TABLET PO PRN (12:37)
[2020-05-31] MEDS ORDERED: MAG HYDROX/AL HYDROX/SIMETH 30 ML UNIT-DOSE CUP PO PRN (12:37)
[2020-05-31] MEDS ORDERED: ACETAMINOPHEN 325 MG TABLET (FP) PO PRN ×2 (12:37)
[2020-05-31] MEDS ORDERED: MAGNESIUM HYDROX 2400MG/30ML ORAL SUSPENSION 30 ML CUP PO PRN (12:37)
[2020-05-31] MEDS ORDERED: MAGNESIUM CITRATE 300 ML BOTTLE PO PRN (12:37)
[2020-05-31] MEDS ORDERED: IBUPROFEN 400 MG TABLET (FP) PO PRN (12:37)
[2020-05-31] MEDS ORDERED: diazePAM 5 MG TABLET PO PRN (12:50)
[2020-05-31] MEDS ORDERED: METHADONE HCL 10 MG TABLET (FOR DETOX USE ONLY) PO ONE (13:30)
[2020-05-31] MEDS: hydrOXYzine PAMOATE 25 MG CAPSULE (FP) PO SCH ×3 (14:42→22:16)
[2020-05-31] MEDS ORDERED: hydrOXYzine PAMOATE 25 MG CAPSULE (FP) PO ONE (14:43)
[2020-05-31] MEDS ORDERED: METHADONE HCL 10 MG TABLET (FOR DETOX USE ONLY) ONE (14:43)
[2020-05-31 15:07] LABS: HEMATOCRIT 38.4 % (35.4-49); HEMOGLOBIN 12.4 GM/dL (11.7-16.9); MCH 25.6 pg (25.7-33.7); MCHC 32.2 g/dl (32.0-35.9); MEAN CELL VOLUME 79.3 fl (80-96); MEAN PLT VOLUME 11.1 fl (7.5-11.1); PLATELET COUNT 112 K/MM3 (134-434); RBC 4.85 M/mm3 (4.00-5.60); RDW 16.9 % (11.9-15.9); WHITE BLOOD COUNT 7.4 K/mm3 (4.0-10.0)
[2020-05-31 15:08] LABS: POTASSIUM 4.2 mmol/L (3.5-5.1)
[2020-05-31 15:15] LABS: CALCIUM 8.8 mg/dL (8.5-10.1)
[2020-05-31 15:16] LABS: ALBUMIN 3.3 g/dl (3.4-5.0); BLOOD UREA NITROGEN 11.7 mg/dL (7-18)
[2020-05-31 15:19] LABS: CREATININE 0.7 mg/dL (0.55-1.3)
[2020-05-31 15:20] LABS: BILIRUBIN,TOTAL 0.8 mg/dL (0.2-1); TOT PROT 7.4 g/dl (6.4-8.2)
[2020-05-31] MEDS ORDERED: ALBUTEROL SO4 HFA INHALER IH PRN (15:46)
[2020-05-31] MEDS ORDERED: PATIENT'S OWN MEDICATION (NON-FORMULARY) (Lipase/Protease/Amylase [Creon Dr 24,000 Units C PO PRN (15:46)
[2020-05-31] MEDS ORDERED: PATIENT'S OWN MEDICATION (NON-FORMULARY) (Lipase/Protease/Amylase [Creon Dr 24,000 Units C PO SCH (17:30)
[2020-05-31] MEDS: diazePAM 5 MG TABLET PO PRN (19:04)
[2020-05-31] MEDS ORDERED: TEZACAFTOR PO SCH (22:00)
[2020-05-31] MEDS ORDERED: [UNRECOGNIZED DRUG - OTHER] PO SCH (22:00)
[2020-05-31] MEDS ORDERED: IVACAFTOR PO SCH (22:00)
[2020-05-31] MEDS ORDERED: ELEXACAFTOR PO SCH (22:00)
[2020-05-31] MEDS: THIAMINE HCL 100 MG TABLET (FP) PO SCH (22:16)
[2020-05-31] MEDS: MELATONIN 5 MG TABLETS PO SCH (22:17)
[2020-05-31] MEDS: BUDESONIDE/FORMETEROL FUMARATE 160/4.5 mcg INHALER IH SCH (22:19)
[2020-06-01] MEDS: diazePAM 5 MG TABLET PO PRN ×4 (03:22→19:47)
[2020-06-01] MEDS: hydrOXYzine PAMOATE 25 MG CAPSULE (FP) PO SCH ×5 (06:57→22:05)
[2020-06-01] MEDS ORDERED: METHADONE HCL 5 MG TABLET (FOR DETOX USE ONLY) ONE (09:25)
[2020-06-01] MEDS ORDERED: METHADONE HCL 10 MG TABLET (FOR DETOX USE ONLY) ONE (09:26)
[2020-06-01] MEDS: PRENATAL VITAMINS W/ FOLIC ACID TABLET (FP) PO SCH (09:37)
[2020-06-01] MEDS: BUDESONIDE/FORMETEROL FUMARATE 160/4.5 mcg INHALER IH SCH ×2 (09:37→22:05)
[2020-06-01] MEDS ORDERED: METHADONE (DETOX) 20 MG, METHADONE (DETOX) 5 MG PO ONE (10:00)
[2020-06-01] MEDS: PATIENT'S OWN MEDICATION (NON-FORMULARY) (Lipase/Protease/Amylase [Creon Dr 24,000 Units C PO SCH ×2 (11:12→16:53)
[2020-06-01] MEDS: PREGABALIN 75 MG CAPSULE PO SCH ×2 (14:33→22:04)
[2020-06-01] MEDS: MIRTAZAPINE 30 MG TABLET PO SCH (22:04)
[2020-06-01] MEDS: MELATONIN 5 MG TABLETS PO SCH (22:04)
[2020-06-01] MEDS: QUEtiapine FUMARATE 100 MG TABLET (FP) PO SCH (22:05)
[2020-06-01] MEDS: THIAMINE HCL 100 MG TABLET (FP) PO SCH (22:05)
[2020-06-02] MEDS: hydrOXYzine PAMOATE 25 MG CAPSULE (FP) PO SCH ×5 (07:38→21:56)
[2020-06-02] MEDS: PREGABALIN 75 MG CAPSULE PO SCH ×3 (07:38→21:53)
[2020-06-02] MEDS: NICOTINE 14 MG/24 HOURS TOPICAL PATCH TD SCH (09:57)
[2020-06-02] MEDS: BUDESONIDE/FORMETEROL FUMARATE 160/4.5 mcg INHALER IH SCH ×2 (09:57→21:54)
[2020-06-02] MEDS: PRENATAL VITAMINS W/ FOLIC ACID TABLET (FP) PO SCH (09:58)
[2020-06-02] MEDS ORDERED: METHADONE HCL 10 MG TABLET (FOR DETOX USE ONLY) PO ONE (10:00)
[2020-06-02] MEDS: diazePAM 5 MG TABLET PO PRN ×3 (10:01→18:49)
[2020-06-02] MEDS: PATIENT'S OWN MEDICATION (NON-FORMULARY) (Lipase/Protease/Amylase [Creon Dr 24,000 Units C PO PRN ×3 (12:10→20:43)
[2020-06-02] MEDS: PATIENT'S OWN MEDICATION (NON-FORMULARY) (Lipase/Protease/Amylase [Creon Dr 24,000 Units C PO SCH (16:46)
[2020-06-02] MEDS: QUEtiapine FUMARATE 100 MG TABLET (FP) PO SCH (21:53)
[2020-06-02] MEDS: MIRTAZAPINE 30 MG TABLET PO SCH (21:53)
[2020-06-02] MEDS: THIAMINE HCL 100 MG TABLET (FP) PO SCH (21:53)
[2020-06-02] MEDS: MELATONIN 5 MG TABLETS PO SCH (21:54)
[2020-06-03] MEDS: hydrOXYzine PAMOATE 25 MG CAPSULE (FP) PO SCH ×5 (05:32→22:03)
[2020-06-03] MEDS: PREGABALIN 75 MG CAPSULE PO SCH ×3 (05:32→22:00)
[2020-06-03] MEDS: diazePAM 5 MG TABLET PO PRN ×5 (05:32→23:05)
[2020-06-03] MEDS: PATIENT'S OWN MEDICATION (NON-FORMULARY) (Lipase/Protease/Amylase [Creon Dr 24,000 Units C PO SCH ×3 (08:18→16:30)
[2020-06-03] MEDS ORDERED: METHADONE HCL 5 MG TABLET (FOR DETOX USE ONLY) ONE (09:14)
[2020-06-03] MEDS ORDERED: METHADONE HCL 10 MG TABLET (FOR DETOX USE ONLY) ONE (09:14)
[2020-06-03] MEDS ORDERED: METHADONE (DETOX) 10 MG, METHADONE (DETOX) 5 MG PO ONE (10:00)
[2020-06-03] MEDS: PRENATAL VITAMINS W/ FOLIC ACID TABLET (FP) PO SCH (10:23)
[2020-06-03] MEDS: NICOTINE 14 MG/24 HOURS TOPICAL PATCH TD SCH (10:27)
[2020-06-03] MEDS: BUDESONIDE/FORMETEROL FUMARATE 160/4.5 mcg INHALER IH SCH ×2 (10:36→22:03)
[2020-06-03] MEDS: PATIENT'S OWN MEDICATION (NON-FORMULARY) (Lipase/Protease/Amylase [Creon Dr 24,000 Units C PO PRN ×3 (12:11→20:38)
[2020-06-03] MEDS: THIAMINE HCL 100 MG TABLET (FP) PO SCH (22:00)
[2020-06-03] MEDS: MIRTAZAPINE 30 MG TABLET PO SCH (22:00)
[2020-06-03] MEDS: MELATONIN 5 MG TABLETS PO SCH (22:01)
[2020-06-03] MEDS: QUEtiapine FUMARATE 100 MG TABLET (FP) PO SCH (22:02)
[2020-06-04] MEDS: PREGABALIN 75 MG CAPSULE PO SCH ×2 (06:42→13:29)
[2020-06-04] MEDS: PATIENT'S OWN MEDICATION (NON-FORMULARY) (Lipase/Protease/Amylase [Creon Dr 24,000 Units C PO SCH ×3 (06:42→11:53)
[2020-06-04] MEDS: hydrOXYzine PAMOATE 25 MG CAPSULE (FP) PO SCH ×3 (06:42→15:54)
[2020-06-04] MEDS: diazePAM 5 MG TABLET PO PRN ×2 (07:38→11:44)
[2020-06-04] MEDS ORDERED: METHADONE HCL 10 MG TABLET (FOR DETOX USE ONLY) PO ONE (10:00)
[2020-06-04] MEDS: BUDESONIDE/FORMETEROL FUMARATE 160/4.5 mcg INHALER IH SCH (10:01)
[2020-06-04] MEDS: NICOTINE 14 MG/24 HOURS TOPICAL PATCH TD SCH (10:01)
[2020-06-04] MEDS: PRENATAL VITAMINS W/ FOLIC ACID TABLET (FP) PO SCH (10:01)
[2020-06-04] MEDS: PATIENT'S OWN MEDICATION (NON-FORMULARY) (Lipase/Protease/Amylase [Creon Dr 24,000 Units C PO PRN (11:53)
[2020-06-04 17:05] VITALS: BP 109/71; PULSE 111; TEMP 98.4
[2020-06-05] MEDS ORDERED: METHADONE HCL 5 MG TABLET (FOR DETOX USE ONLY) PO ONE (06:00)
== END 2020-06-04 16:47 | disposition home or self-care (01) | DRG 773 ==
LOC: YASAS 10:01 → Y6N 15:10
PROVIDERS: ADMIT Allergy & Immunology; ATTEND Allergy & Immunology
PROC: HZ2ZZZZ Detoxification Services for Substance Abuse Treatment (ICD-10-PCS; principal; 2020-05-31)
DX: F11.23 Opioid dependence with withdrawal (principal); F13.20 Sedative, hypnotic or anxiolytic dependence, uncomplicated; F14.20 Cocaine dependence, uncomplicated; F12.10 Cannabis abuse, uncomplicated; F19.24 Other psychoactive substance dependence with psychoactive substance-induced mood disorder; F19.280 Other psychoactive substance dependence with psychoactive substance-induced anxiety disorder; F19.282 Other psychoactive substance dependence with psychoactive substance-induced sleep disorder; F39 Unspecified mood [affective] disorder; I95.3 Hypotension of hemodialysis; E86.0 Dehydration; D69.6 Thrombocytopenia, unspecified; E84.9 Cystic fibrosis, unspecified; K21.9 Gastro-esophageal reflux disease without esophagitis; Z86.69 Personal history of other diseases of the nervous system and sense organs; Z88.1 Allergy status to other antibiotic agents
CPT/HCPCS: 36415; 80053; 85027; 86780; C9803; U0003

== ENCOUNTER 2020-10-27 14:34 | Inpatient (IN) | payer OTHER ==
[2020-10-27 17:23] VITALS: BMI 19.0
[2020-10-27] MEDS ORDERED: BISMUTH SUBSALICYLATE 524 MG/30 ML PO PRN (17:38)
[2020-10-27] MEDS ORDERED: IBUPROFEN 400 MG TABLET (FP) PO PRN (17:38)
[2020-10-27] MEDS ORDERED: cloNIDine HCL 0.1 MG TABLET PO PRN (17:38)
[2020-10-27] MEDS ORDERED: MAGNESIUM CITRATE 300 ML BOTTLE PO PRN (17:38)
[2020-10-27] MEDS ORDERED: NICOTINE POLACRILEX 2 MG GUM BUC PRN (17:38)
[2020-10-27] MEDS ORDERED: MENTHOL/PHENOL 1 EACH UD MM PRN (17:38)
[2020-10-27] MEDS ORDERED: METHADONE HCL 10 MG TABLET (FOR DETOX USE ONLY) PO ONE (17:38)
[2020-10-27] MEDS ORDERED: ACETAMINOPHEN 325 MG TABLET (FP) PO PRN ×2 (17:38)
[2020-10-27] MEDS ORDERED: MAG HYDROX/AL HYDROX/SIMETH 30 ML UNIT-DOSE CUP PO PRN (17:38)
[2020-10-27] MEDS ORDERED: MAGNESIUM HYDROX 2400MG/30ML ORAL SUSPENSION 30 ML CUP PO PRN (17:38)
[2020-10-27] MEDS: hydrOXYzine PAMOATE 25 MG CAPSULE (FP) PO SCH ×2 (20:41→23:54)
[2020-10-27] MEDS ORDERED: MELATONIN 5 MG TABLETS PO SCH (22:00)
[2020-10-27] MEDS: THIAMINE HCL 100 MG TABLET (FP) PO SCH (23:54)
[2020-10-27] MEDS: ELEXACAFTOR PO SCH (23:56)
[2020-10-27] MEDS: IVACAFTOR PO SCH (23:56)
[2020-10-27] MEDS: [UNRECOGNIZED DRUG - OTHER] PO SCH (23:56)
[2020-10-27] MEDS: TEZACAFTOR PO SCH (23:56)
[2020-10-28] MEDS: METHOCARBAMOL 500 MG TABLET PO PRN ×2 (03:27→10:29)
[2020-10-28] MEDS: hydrOXYzine PAMOATE 25 MG CAPSULE (FP) PO SCH ×6 (06:26→23:08)
[2020-10-28] MEDS: PATIENT'S OWN MEDICATION (NON-FORMULARY) (Lipase/Protease/Amylase [Creon Dr 24,000 Units C PO SCH ×3 (08:25→19:30)
[2020-10-28] MEDS ORDERED: METHADONE HCL 5 MG TABLET (FOR DETOX USE ONLY) ONE (08:56)
[2020-10-28] MEDS ORDERED: METHADONE HCL 10 MG TABLET (FOR DETOX USE ONLY) ONE (08:56)
[2020-10-28] MEDS ORDERED: METHADONE (DETOX) 20 MG, METHADONE (DETOX) 5 MG PO ONE (10:00)
[2020-10-28] MEDS: diazePAM 5 MG TABLET PO PRN (10:28)
[2020-10-28] MEDS: TEZACAFTOR PO SCH ×2 (10:29→23:06)
[2020-10-28] MEDS: ELEXACAFTOR PO SCH ×2 (10:29→23:06)
[2020-10-28] MEDS: [UNRECOGNIZED DRUG - OTHER] PO SCH ×2 (10:29→23:06)
[2020-10-28] MEDS: IVACAFTOR PO SCH ×2 (10:29→23:06)
[2020-10-28] MEDS: PRENATAL VITAMINS W/ FOLIC ACID TABLET (FP) PO SCH (10:31)
[2020-10-28] MEDS: PREGABALIN 75 MG CAPSULE PO SCH ×2 (13:07→23:05)
[2020-10-28] MEDS: ONDANSETRON *ODT* 4 MG TABLET SL PRN (13:09)
[2020-10-28] MEDS: QUEtiapine FUMARATE 100 MG TABLET (FP) PO SCH (23:06)
[2020-10-28] MEDS: MIRTAZAPINE 30 MG TABLET PO SCH (23:06)
[2020-10-28] MEDS: THIAMINE HCL 100 MG TABLET (FP) PO SCH (23:06)
[2020-10-29] MEDS: hydrOXYzine PAMOATE 25 MG CAPSULE (FP) PO SCH ×5 (06:27→22:13)
[2020-10-29] MEDS: PREGABALIN 75 MG CAPSULE PO SCH ×3 (07:28→22:13)
[2020-10-29] MEDS ORDERED: METHADONE HCL 10 MG TABLET (FOR DETOX USE ONLY) PO ONE (10:00)
[2020-10-29] MEDS: PRENATAL VITAMINS W/ FOLIC ACID TABLET (FP) PO SCH (10:46)
[2020-10-29] MEDS: diazePAM 5 MG TABLET PO PRN ×2 (10:49→17:52)
[2020-10-29] MEDS: PATIENT'S OWN MEDICATION (NON-FORMULARY) (Lipase/Protease/Amylase [Creon Dr 24,000 Units C PO SCH ×4 (10:53→17:27)
[2020-10-29] MEDS: ELEXACAFTOR PO SCH ×2 (13:56→22:14)
[2020-10-29] MEDS: [UNRECOGNIZED DRUG - OTHER] PO SCH ×2 (13:56→22:14)
[2020-10-29] MEDS: TEZACAFTOR PO SCH ×2 (13:56→22:14)
[2020-10-29] MEDS: IVACAFTOR PO SCH ×2 (13:56→22:14)
[2020-10-29] MEDS: PATIENT'S OWN MEDICATION (NON-FORMULARY) (Lipase/Protease/Amylase [Creon Dr 24,000 Units C PO PRN (17:02)
[2020-10-29] MEDS: ONDANSETRON *ODT* 4 MG TABLET SL PRN (17:53)
[2020-10-29] MEDS: THIAMINE HCL 100 MG TABLET (FP) PO SCH (22:13)
[2020-10-29] MEDS: MIRTAZAPINE 30 MG TABLET PO SCH (22:13)
[2020-10-29] MEDS: QUEtiapine FUMARATE 100 MG TABLET (FP) PO SCH (22:13)
[2020-10-29] MEDS: MELATONIN 5 MG TABLETS PO PRN (22:14)
[2020-10-30] MEDS: hydrOXYzine PAMOATE 25 MG CAPSULE (FP) PO SCH ×5 (06:17→22:25)
[2020-10-30] MEDS: PREGABALIN 75 MG CAPSULE PO SCH ×3 (06:17→22:22)
[2020-10-30] MEDS: PATIENT'S OWN MEDICATION (NON-FORMULARY) (Lipase/Protease/Amylase [Creon Dr 24,000 Units C PO SCH ×3 (08:50→16:46)
[2020-10-30] MEDS ORDERED: METHADONE HCL 5 MG TABLET (FOR DETOX USE ONLY) ONE (09:35)
[2020-10-30] MEDS ORDERED: METHADONE HCL 10 MG TABLET (FOR DETOX USE ONLY) ONE (09:36)
[2020-10-30] MEDS ORDERED: METHADONE (DETOX) 10 MG, METHADONE (DETOX) 5 MG PO ONE (10:00)
[2020-10-30] MEDS: diazePAM 5 MG TABLET PO PRN ×2 (10:45→17:47)
[2020-10-30] MEDS: METHOCARBAMOL 500 MG TABLET PO PRN (10:46)
[2020-10-30] MEDS: PRENATAL VITAMINS W/ FOLIC ACID TABLET (FP) PO SCH (10:47)
[2020-10-30] MEDS: IVACAFTOR PO SCH ×2 (11:13→22:24)
[2020-10-30] MEDS: TEZACAFTOR PO SCH ×2 (11:13→22:24)
[2020-10-30] MEDS: PATIENT'S OWN MEDICATION (NON-FORMULARY) (Lipase/Protease/Amylase [Creon Dr 24,000 Units C PO PRN ×3 (11:13→21:02)
[2020-10-30] MEDS: [UNRECOGNIZED DRUG - OTHER] PO SCH ×2 (11:13→22:24)
[2020-10-30] MEDS: ELEXACAFTOR PO SCH ×2 (11:13→22:24)
[2020-10-30] MEDS ORDERED: ALBUTEROL SO4 HFA INHALER IH PRN (12:27)
[2020-10-30] MEDS: BUDESONIDE/FORMETEROL FUMARATE 160/4.5 mcg INHALER IH SCH ×2 (13:26→22:22)
[2020-10-30 14:06] LABS: SARS-CoV-2 NAA Not Detected (Not Detected)
[2020-10-30] MEDS: MIRTAZAPINE 30 MG TABLET PO SCH (22:22)
[2020-10-30] MEDS: THIAMINE HCL 100 MG TABLET (FP) PO SCH (22:22)
[2020-10-30] MEDS: QUEtiapine FUMARATE 100 MG TABLET (FP) PO SCH (22:22)
[2020-10-30] MEDS: MELATONIN 5 MG TABLETS PO PRN (22:24)
[2020-10-31] MEDS: PATIENT'S OWN MEDICATION (NON-FORMULARY) (Lipase/Protease/Amylase [Creon Dr 24,000 Units C PO SCH ×3 (08:46→16:55)
[2020-10-31] MEDS ORDERED: METHADONE HCL 10 MG TABLET (FOR DETOX USE ONLY) PO ONE (10:00)
[2020-10-31] MEDS: PRENATAL VITAMINS W/ FOLIC ACID TABLET (FP) PO SCH (10:11)
[2020-10-31] MEDS: METHOCARBAMOL 500 MG TABLET PO PRN (10:12)
[2020-10-31] MEDS: hydrOXYzine PAMOATE 25 MG CAPSULE (FP) PO SCH ×5 (10:13→23:34)
[2020-10-31] MEDS: BUDESONIDE/FORMETEROL FUMARATE 160/4.5 mcg INHALER IH SCH ×2 (10:13→23:34)
[2020-10-31] MEDS: TEZACAFTOR PO SCH ×2 (10:14→22:22)
[2020-10-31] MEDS: ELEXACAFTOR PO SCH ×2 (10:14→22:22)
[2020-10-31] MEDS: [UNRECOGNIZED DRUG - OTHER] PO SCH ×2 (10:14→22:22)
[2020-10-31] MEDS: IVACAFTOR PO SCH ×2 (10:14→22:22)
[2020-10-31] MEDS: PREGABALIN 75 MG CAPSULE PO SCH ×3 (16:10→23:34)
[2020-10-31] MEDS: PATIENT'S OWN MEDICATION (NON-FORMULARY) (Lipase/Protease/Amylase [Creon Dr 24,000 Units C PO PRN (21:54)
[2020-10-31] MEDS: QUEtiapine FUMARATE 100 MG TABLET (FP) PO SCH (22:22)
[2020-10-31] MEDS: MIRTAZAPINE 30 MG TABLET PO SCH (22:22)
[2020-10-31] MEDS: MELATONIN 5 MG TABLETS PO PRN (22:23)
[2020-10-31] MEDS: THIAMINE HCL 100 MG TABLET (FP) PO SCH (23:34)
[2020-11-01] MEDS ORDERED: METHADONE HCL 5 MG TABLET (FOR DETOX USE ONLY) PO ONE (06:00)
[2020-11-01] MEDS: PREGABALIN 75 MG CAPSULE PO SCH (06:18)
[2020-11-01] MEDS: hydrOXYzine PAMOATE 25 MG CAPSULE (FP) PO SCH ×2 (06:19→11:33)
[2020-11-01] MEDS: PRENATAL VITAMINS W/ FOLIC ACID TABLET (FP) PO SCH (11:32)
[2020-11-01] MEDS: PATIENT'S OWN MEDICATION (NON-FORMULARY) (Lipase/Protease/Amylase [Creon Dr 24,000 Units C PO SCH (11:34)
[2020-11-01] MEDS: IVACAFTOR PO SCH (11:36)
[2020-11-01] MEDS: ELEXACAFTOR PO SCH (11:36)
[2020-11-01] MEDS: [UNRECOGNIZED DRUG - OTHER] PO SCH (11:36)
[2020-11-01] MEDS: TEZACAFTOR PO SCH (11:36)
[2020-11-01] MEDS: BUDESONIDE/FORMETEROL FUMARATE 160/4.5 mcg INHALER IH SCH (11:43)
[2020-11-01 12:46] VITALS: BP 144/79; PULSE 106; TEMP 97
== END 2020-11-01 12:37 | disposition home or self-care (01) | DRG 773 ==
LOC: YASAS 14:34 → Y6N 19:40
PROVIDERS: ADMIT Allergy & Immunology; ATTEND Allergy & Immunology
PROC: HZ2ZZZZ Detoxification Services for Substance Abuse Treatment (ICD-10-PCS; principal; 2020-10-27)
DX: F11.23 Opioid dependence with withdrawal (principal); F14.20 Cocaine dependence, uncomplicated; F13.20 Sedative, hypnotic or anxiolytic dependence, uncomplicated; F12.20 Cannabis dependence, uncomplicated; F17.210 Nicotine dependence, cigarettes, uncomplicated; F19.280 Other psychoactive substance dependence with psychoactive substance-induced anxiety disorder; F19.282 Other psychoactive substance dependence with psychoactive substance-induced sleep disorder; F19.24 Other psychoactive substance dependence with psychoactive substance-induced mood disorder; E84.9 Cystic fibrosis, unspecified; G62.9 Polyneuropathy, unspecified; G40.89 Other seizures; K21.9 Gastro-esophageal reflux disease without esophagitis; K86.9 Disease of pancreas, unspecified; R63.4 Abnormal weight loss; Z68.1 Body mass index [BMI] 19.9 or less, adult; Z86.16 Personal history of COVID-19; Z88.1 Allergy status to other antibiotic agents
CPT/HCPCS: C9803; Q0162; U0003; U0005

== ENCOUNTER 2021-05-08 09:03 | Emergency (ER) | payer OTHER ==
[2021-05-08 09:18] VITALS: TEMP 98.1; BMI 20.4
[2021-05-08] MEDS ORDERED: KETAMINE HCL 200 MG/20 ML VIAL IVPUSH ONE (10:56)
[2021-05-08] MEDS ORDERED: PROPOFOL 200 MG/20 ML VIAL IVPUSH ONE ×2 (10:56→11:07)
[2021-05-08] MEDS ORDERED: SODIUM CHLORIDE 0.9% 500 ML INFUS.BAG IV ONE (10:58)
[2021-05-08] MEDS ORDERED: PROPOFOL 0 ML ONE (11:38)
[2021-05-08] MEDS ORDERED: KETAMINE HCL 500 MG/10 ML VIAL ONE (11:38)
[2021-05-08 15:57] VITALS: BP 110/72; PULSE 81
== END 2021-05-08 14:35 | disposition home or self-care (01) ==
LOC: JER 09:03
PROC: 0RSJXZZ Reposition Right Shoulder Joint, External Approach (ICD-10-PCS; principal; 2021-05-08)
PROC: 3E033GC Introduction of Other Therapeutic Substance into Peripheral Vein, Percutaneous Approach (ICD-10-PCS; 2021-05-08)
DX: S43.004A Unspecified dislocation of right shoulder joint, initial encounter (principal); W06.XXXA Fall from bed, initial encounter
CPT/HCPCS: 23650; 73030-TC-RT-FY; 96374; 99285-25

== ENCOUNTER 2022-10-10 20:47 | Emergency (ER) | payer OTHER ==
[2022-10-10 20:52] VITALS: BP 119/78; PULSE 68; RESP 17; TEMP 98; BMI 20.3
== END 2022-10-10 22:29 | disposition home or self-care (01) ==
LOC: JER 20:47
DX: L03.113 Cellulitis of right upper limb (principal); S61.411A Laceration without foreign body of right hand, initial encounter; W25.XXXA Contact with sharp glass, initial encounter; Y93.89 Activity, other specified; Y92.008 Other place in unspecified non-institutional (private) residence as the place of occurrence of the external cause
CPT/HCPCS: 73130-TC-RT-FY; 99283-25

== ENCOUNTER 2023-01-05 23:36 | Emergency (ER) | payer OTHER ==
[2023-01-05 23:44] VITALS: BP 155/102; PULSE 116; RESP 18; TEMP 98.5; BMI 18.4
[2023-01-06] MEDS ORDERED: GABAPENTIN 300 MG CAPSULE PO ONE (00:18)
[2023-01-06] MEDS ORDERED: GABAPENTIN 300 MG CAPSULE ONE (00:20)
== END 2023-01-06 00:38 | disposition home or self-care (01) ==
LOC: JER 23:36
DX: Z76.0 Encounter for issue of repeat prescription (principal)
CPT/HCPCS: 99281-25

== ENCOUNTER 2023-12-17 17:02 | Inpatient (IN) | payer OTHER ==
[2023-12-17 18:34] VITALS: BMI 17.9
[2023-12-17] MEDS ORDERED: IBUPROFEN 400 MG TABLET (FP) PO PRN (19:49)
[2023-12-17] MEDS ORDERED: ACETAMINOPHEN 325 MG TABLET (FP) PO PRN (19:49)
[2023-12-17] MEDS ORDERED: ONDANSETRON *ODT* 4 MG TABLET SL PRN (19:49)
[2023-12-17] MEDS ORDERED: BISMUTH SUBSALICYLATE 524 MG/30 ML PO PRN (19:49)
[2023-12-17] MEDS ORDERED: guaiFENesin 600 MG TABLET.ER (FP) PO PRN (19:49)
[2023-12-17] MEDS ORDERED: LOPERAMIDE HCL 2 MG CAPSULE PO PRN (19:49)
[2023-12-17] MEDS ORDERED: DICYCLOMINE HCL 10 MG CAPSULE PO PRN (19:49)
[2023-12-17] MEDS: THIAMINE 100 MG TABLET PO SCH (21:15)
[2023-12-17] MEDS: METHOCARBAMOL 500 MG TABLET PO PRN (21:15)
[2023-12-17] MEDS: hydrOXYzine PAMOATE 25 MG CAPSULE (FP) PO PRN (21:15)
[2023-12-17] MEDS: MELATONIN 5 MG TABLETS PO ONE (22:32)
[2023-12-17] MEDS: ELEXACAFTOR PO SCH (22:33)
[2023-12-17] MEDS: IVACAFTOR PO SCH (22:33)
[2023-12-17] MEDS: TEZACAFTOR PO SCH (22:33)
[2023-12-18] MEDS ORDERED: cloNIDine HCL 0.1 MG TABLET PO PRN (09:04)
[2023-12-18] MEDS: PROTEASE PO SCH (09:09)
[2023-12-18] MEDS: LIPASE PO SCH (09:09)
[2023-12-18] MEDS: [UNRECOGNIZED DRUG - OTHER] PO SCH (09:09)
[2023-12-18] MEDS: AMYLASE PO SCH (09:09)
[2023-12-18] MEDS: PRENATAL VITAMINS W/ FOLIC ACID TABLET (FP) PO SCH (10:04)
[2023-12-18] MEDS: NICOTINE 14 MG/24 HOURS TOPICAL PATCH TD SCH (10:04)
[2023-12-18] MEDS: TEZACAFTOR PO SCH (10:07)
[2023-12-18] MEDS: ELEXACAFTOR PO SCH (10:07)
[2023-12-18] MEDS: IVACAFTOR PO SCH (10:07)
[2023-12-18] MEDS: methaDONE HCL 10 MG TABLET (FOR DETOX USE ONLY) PO ONE (10:26)
[2023-12-18] MEDS: chlordiazePOXIDE HCL 25 MG CAPSULE PO SCH (10:29)
[2023-12-18] MEDS ORDERED: LIPASE/PROTEASE/AMYLASE 36,000 UNIT CAPSULE PO PRN (10:51)
[2023-12-18 11:53] LABS: HEMATOCRIT 40.3 % (35.4-49); HEMOGLOBIN 13.8 GM/dL (11.7-16.9); MCH 29.5 pg (25.7-33.7); MCHC 34.4 g/dl (32.0-35.9); MEAN CELL VOLUME 85.9 fl (80-96); MEAN PLT VOLUME 11.3 fl (7.5-11.1); PLATELET COUNT 77 10^3/uL (134-434); RBC 4.69 M/mm3 (4.00-5.60); RDW 13.3 % (11.9-15.9); WHITE BLOOD COUNT 5.3 K/mm3 (4.0-10.0)
[2023-12-18] MEDS: LIPASE/PROTEASE/AMYLASE 36,000 UNIT CAPSULE PO SCH ×2 (12:21→17:13)
[2023-12-18] MEDS: chlordiazePOXIDE HCL 25 MG CAPSULE PO PRN (13:27)
[2023-12-18 14:02] LABS: CHLORIDE 108 mmol/L (98-107); POTASSIUM 3.6 mmol/L (3.5-5.1); SODIUM 142 mmol/L (136-145)
[2023-12-18 14:09] LABS: CALCIUM 8.9 mg/dL (8.5-10.1)
[2023-12-18 14:10] LABS: ALBUMIN 3.5 g/dl (3.4-5.0); BLOOD UREA NITROGEN 12.1 mg/dL (7-18); CO2 28 mmol/L (21-32); GLUCOSE,RANDOM 93 mg/dL (74-106)
[2023-12-18 14:13] LABS: CREATININE 0.6 mg/dL (0.55-1.3); SGOT/AST 12 U/L (15-37); SGPT/ALT 14 U/L (13-61)
[2023-12-18 14:14] LABS: BILIRUBIN,TOTAL 0.9 mg/dL (0.2-1); TOT PROT 6.4 g/dl (6.4-8.2)
[2023-12-18 14:16] LABS: ALK PHOS 79 U/L (45-117)
[2023-12-18] MEDS: LIPASE/PROTEASE/AMYLASE 36,000 UNIT CAPSULE PO PRN (19:57)
[2023-12-18] MEDS ORDERED: MIRTAZAPINE 15 MG TABLET (FP) ONE (21:39)
[2023-12-18] MEDS: QUEtiapine FUMARATE 100 MG TABLET (FP) PO SCH (22:00)
[2023-12-18] MEDS: GABAPENTIN 100 MG CAPSULE PO SCH (22:00)
[2023-12-18] MEDS: MIRTAZAPINE 30 MG TABLET PO SCH (22:00)
[2023-12-19] MEDS ORDERED: PREGABALIN 100 MG CAPSULE PO SCH (14:00)
[2023-12-19] MEDS: LIPASE/PROTEASE/AMYLASE 36,000 UNIT CAPSULE PO SCH (14:37)
[2023-12-19] MEDS: PREGABALIN 50 MG CAPSULE PO SCH (23:02)
[2023-12-20] MEDS: chlordiazePOXIDE HCL 25 MG CAPSULE PO SCH (06:25)
[2023-12-20] MEDS: methaDONE HCL 10 MG TABLET (FOR DETOX USE ONLY) PO ONE (11:44)
[2023-12-21] MEDS: chlordiazePOXIDE HCL 10 MG CAPSULE PO SCH (05:33)
[2023-12-21] MEDS: chlordiazePOXIDE HCL 10 MG CAPSULE PO PRN (14:18)
[2023-12-22] MEDS: chlordiazePOXIDE HCL 10 MG CAPSULE PO SCH (05:40)
[2023-12-22] MEDS: methaDONE HCL 10 MG TABLET (FOR DETOX USE ONLY) PO ONE ×2 (09:39→10:37)
[2023-12-22] MEDS: MAG HYDROX/AL HYDROX/SIMETH 30 ML UNIT-DOSE CUP PO PRN (19:55)
[2023-12-22] MEDS ORDERED: MIRTAZAPINE 15 MG TABLET (FP) ONE (21:17)
[2023-12-23] MEDS: chlordiazePOXIDE HCL 10 MG CAPSULE PO ONE (05:50)
[2023-12-23 06:22] VITALS: RESP 16
[2023-12-23 12:47] VITALS: BP 127/68; PULSE 95; TEMP 97.6
== END 2023-12-23 12:59 | disposition other institution (70) | DRG 773 ==
LOC: YASAS 17:02 → Y3N 20:16
PROVIDERS: ADMIT Allergy & Immunology; ATTEND Surgery
PROC: HZ2ZZZZ Detoxification Services for Substance Abuse Treatment (ICD-10-PCS; principal; 2023-12-17)
DX: F11.23 Opioid dependence with withdrawal (principal); F10.230 Alcohol dependence with withdrawal, uncomplicated; F13.230 Sedative, hypnotic or anxiolytic dependence with withdrawal, uncomplicated; F14.120 Cocaine abuse with intoxication, uncomplicated; F12.20 Cannabis dependence, uncomplicated; F17.210 Nicotine dependence, cigarettes, uncomplicated; F19.24 Other psychoactive substance dependence with psychoactive substance-induced mood disorder; F41.9 Anxiety disorder, unspecified; G47.00 Insomnia, unspecified
CPT/HCPCS: 36415; 80053; 80305; 80307; 85027; 86780; 87811; 93005; 93010

== ENCOUNTER 2023-12-23 13:10 | Inpatient (IN) | payer OTHER ==
[2023-12-23] MEDS ORDERED: MAG HYDROX/AL HYDROX/SIMETH 30 ML UNIT-DOSE CUP PO PRN (14:12)
[2023-12-23] MEDS ORDERED: NALOXONE (NARCAN) HCL 4 MG/0.1 ML SPRAY NS PRN ×2 (14:12→14:16)
[2023-12-23] MEDS ORDERED: MAGNESIUM HYDROX 2400MG/30ML ORAL SUSPENSION 30 ML CUP PO PRN (14:12)
[2023-12-23] MEDS ORDERED: BENZONATATE 200 MG CAPSULE PO PRN (14:12)
[2023-12-23] MEDS ORDERED: NICOTINE POLACRILEX 4 MG LOZENGE BC PRN (14:12)
[2023-12-23] MEDS ORDERED: LOPERAMIDE HCL 2 MG CAPSULE PO PRN (14:12)
[2023-12-23] MEDS ORDERED: POLYETHYLENE GLYCOL (HEALTHYLAX) 3350 17 GM PACKET PO PRN (14:12)
[2023-12-23] MEDS ORDERED: guaiFENesin 600 MG TABLET.ER (FP) PO PRN (14:12)
[2023-12-23] MEDS ORDERED: NALOXONE HCL 0.4 MG/ML VIAL IVPUSH PRN (14:12)
[2023-12-23] MEDS ORDERED: ALBUTEROL SO4 HFA INHALER IH PRN (14:19)
[2023-12-23] MEDS ORDERED: LIPASE/PROTEASE/AMYLASE 6,000 UNIT CAPSULE PO PRN (14:50)
[2023-12-23] MEDS: LIPASE PO SCH (15:03)
[2023-12-23] MEDS: AMYLASE PO SCH (15:03)
[2023-12-23] MEDS: PROTEASE PO SCH (15:03)
[2023-12-23] MEDS: PREGABALIN 75 MG CAPSULE PO SCH (15:03)
[2023-12-23] MEDS: METHOCARBAMOL 500 MG TABLET PO PRN (16:52)
[2023-12-23] MEDS: hydrOXYzine PAMOATE 25 MG CAPSULE (FP) PO PRN (16:52)
[2023-12-23] MEDS: LIPASE/PROTEASE/AMYLASE 36,000 UNIT CAPSULE PO SCH (17:20)
[2023-12-23] MEDS: LIPASE/PROTEASE/AMYLASE 36,000 UNIT CAPSULE PO PRN (20:29)
[2023-12-23] MEDS: MIRTAZAPINE 30 MG TABLET PO SCH (21:17)
[2023-12-23] MEDS: QUEtiapine FUMARATE 100 MG TABLET (FP) PO SCH (21:17)
[2023-12-23] MEDS: MELATONIN 5 MG TABLETS PO SCH (21:17)
[2023-12-23] MEDS: THIAMINE 100 MG TABLET PO SCH (21:17)
[2023-12-23] MEDS: IVACAFTOR PO SCH (21:19)
[2023-12-23] MEDS: BUDESONIDE/FORMETEROL FUMARATE 160/4.5 mcg INHALER IH SCH (21:19)
[2023-12-23] MEDS: ELEXACAFTOR PO SCH (21:19)
[2023-12-23] MEDS: [UNRECOGNIZED DRUG - OTHER] PO SCH (21:19)
[2023-12-23] MEDS: TEZACAFTOR PO SCH (21:19)
[2023-12-24] MEDS: PRENATAL VITAMINS W/ FOLIC ACID TABLET (FP) PO SCH (09:57)
[2023-12-24] MEDS: [UNRECOGNIZED DRUG - OTHER] PO SCH (10:00)
[2023-12-24] MEDS: TEZACAFTOR PO SCH (10:00)
[2023-12-24] MEDS: IVACAFTOR PO SCH (10:00)
[2023-12-24] MEDS: ELEXACAFTOR PO SCH (10:00)
[2023-12-24] MEDS ORDERED: BISMUTH SUBSALICYLATE 262 MG/15 ML BTL PO PRN (10:21)
[2023-12-24] MEDS ORDERED: ONDANSETRON *ODT* 4 MG TABLET SL PRN (10:21)
[2023-12-24] MEDS ORDERED: DICYCLOMINE HCL 10 MG CAPSULE PO PRN (10:21)
[2023-12-24] MEDS: cloNIDine HCL 0.1 MG TABLET PO ONE (10:59)
[2023-12-24] MEDS: BUPRENORPHINE HCL 150 MCG, BUPRENORPHINE HCL 75 MCG BC ONE (11:19)
[2023-12-24] MEDS: busPIRone HCL 5 MG TABLET PO SCH (14:01)
[2023-12-24] MEDS: LIPASE/PROTEASE/AMYLASE 36,000 UNIT CAPSULE PO SCH (14:01)
[2023-12-24] MEDS ORDERED: cloNIDine HCL 0.1 MG TABLET PO PRN (14:24)
[2023-12-24] MEDS: BUPRENORPHINE HCL 150 MCG, BUPRENORPHINE HCL 75 MCG BC PRN (15:50)
[2023-12-24] MEDS: NICOTINE 7 MG/24 HOURS TOPICAL PATCH TD PRN (15:55)
[2023-12-24] MEDS: hydrOXYzine PAMOATE 50 MG CAPSULE (FP) PO PRN (17:24)
[2023-12-25] MEDS: BUPRENORPHINE HCL 150 MCG, BUPRENORPHINE HCL 75 MCG BC SCH (06:19)
[2023-12-25] MEDS: BUPRENORPHINE HCL 150 MCG, BUPRENORPHINE HCL 75 MCG BC PRN (10:41)
[2023-12-25] MEDS: NICOTINE 21 MG/24 HOURS TOPICAL PATCH TD PRN (11:09)
[2023-12-25] MEDS: BUPRENORPHINE/NALOXONE 2 MG/0.5 MG FILM PACKET SL ONE ×2 (14:21→18:07)
[2023-12-26] MEDS ORDERED: BUPRENORPHINE HCL 450 MCG FILM BC SCH (06:00)
[2023-12-26] MEDS: BUPRENORPHINE/NALOXONE 4 MG/1 MG FILM PACKET SL SCH (06:25)
[2023-12-27] MEDS ORDERED: BUPRENORPHINE/NALOXONE 4 MG/1 MG FILM PACKET SL SCH (06:00)
[2023-12-27] MEDS: BUPRENORPHINE/NALOXONE 8 MG/2 MG FILM PACKET SL SCH (06:32)
[2023-12-27] MEDS: propRANOLol HCL 10 MG TABLET PO PRN (09:49)
[2023-12-27] MEDS ORDERED: BUPRENORPHINE/NALOXONE 8 MG/2 MG FILM PACKET SL SCH ×2 (10:00→22:00)
[2023-12-28] MEDS ORDERED: BUPRENORPHINE/NALOXONE 8 MG/2 MG FILM PACKET SL SCH (10:00)
[2023-12-28] MEDS ORDERED: QUEtiapine FUMARATE 50 MG TABLET ONE (21:44)
[2023-12-29] MEDS ORDERED: QUEtiapine FUMARATE 50 MG TABLET ONE (20:12)
[2024-01-01] MEDS: LIPASE/PROTEASE/AMYLASE 36,000 UNIT CAPSULE PO SCH ×2 (14:38→17:40)
[2024-01-01] MEDS: PROTEASE PO PRN (21:37)
[2024-01-01] MEDS: AMYLASE PO PRN (21:37)
[2024-01-01] MEDS: LIPASE PO PRN (21:37)
[2024-01-05] MEDS ORDERED: QUEtiapine FUMARATE 50 MG TABLET ONE (21:20)
[2024-01-08] MEDS ORDERED: BENZOCAINE 20 % GEL TUBE MM PRN (10:20)
[2024-01-08] MEDS: BUPRENORPHINE/NALOXONE 4 MG/1 MG FILM PACKET SL SCH (12:07)
[2024-01-08] MEDS: AMOX TR/POT CLAV 500MG/125MG TABLETS (FP) PO SCH (17:05)
[2024-01-08] MEDS: SUVOREXANT 10 MG TABLET PO PRN (21:10)
[2024-01-08] MEDS: busPIRone HCL 10 MG TABLET (FP) PO SCH (21:10)
[2024-01-09 11:57] LABS: INR 0.93 (0.83-1.09); PROTHROMBIN TIME (PATIENT) 10.7 SEC (9.7-13.0)
[2024-01-09 12:01] LABS: POTASSIUM 4.4 mmol/L (3.5-5.1)
[2024-01-09 12:09] LABS: BLOOD UREA NITROGEN 14.4 mg/dL (7-18)
[2024-01-09 12:10] LABS: ALBUMIN 3.6 g/dl (3.4-5.0); CALCIUM 9.3 mg/dL (8.5-10.1); MAGNESIUM 2.2 mg/dL (1.8-2.4)
[2024-01-09 12:14] LABS: CREATININE 0.8 mg/dL (0.55-1.3)
[2024-01-09 12:15] LABS: BILIRUBIN,TOTAL 0.5 mg/dL (0.2-1)
[2024-01-09 12:20] LABS: HEMOGLOBIN 14.7 GM/dL (11.7-16.9); MCH 29.8 pg (25.7-33.7); MCHC 33.4 g/dl (32.0-35.9); MEAN CELL VOLUME 89.2 fl (80-96); MEAN PLT VOLUME 10.7 fl (7.5-11.1); PLATELET COUNT 99 10^3/uL (134-434); RBC 4.93 M/mm3 (4.00-5.60); RDW 14.6 % (11.9-15.9); WHITE BLOOD COUNT 6.8 K/mm3 (4.0-10.0)
[2024-01-09 12:32] LABS: TOT PROT 6.7 g/dl (6.4-8.2)
[2024-01-09] MEDS: AMYLASE PO PRN (20:30)
[2024-01-09] MEDS: LIPASE PO PRN (20:30)
[2024-01-09] MEDS: PROTEASE PO PRN (20:30)
[2024-01-10] MEDS: NICOTINE POLACRILEX 4 MG GUM BUC PRN (09:59)
[2024-01-10] MEDS: PREGABALIN 100 MG CAPSULE PO SCH (13:57)
[2024-01-11] MEDS: SUVOREXANT 10 MG TABLET PO PRN (21:57)
[2024-01-12] MEDS ORDERED: SUVOREXANT 10 MG TABLET PO PRN (22:00)
[2024-01-13] MEDS: MELATONIN 5 MG TABLETS PO SCH (21:30)
[2024-01-13] MEDS: SUVOREXANT 10 MG TABLET PO PRN (21:31)
[2024-01-16] MEDS: ACETAMINOPHEN 325 MG TABLET (FP) PO PRN (13:36)
[2024-01-16] MEDS: BENZOCAINE/MENTHOL (CHLORASEPTIC ) LOZENGE MM PRN (13:56)
[2024-01-16] MEDS ORDERED: guaiFENesin 200 MG/10 ML 10 ML UNIT-DOSE CUPS PO PRN (14:05)
[2024-01-18] MEDS: IBUPROFEN 600 MG TABLET (FP) PO PRN (12:31)
[2024-01-18] MEDS: P-EPHED 60MG/TRIPROLIDI 2.5MG TABLET PO PRN (12:32)
[2024-01-18] MEDS: AMYLASE PO PRN (12:48)
[2024-01-18] MEDS: LIPASE PO PRN (12:48)
[2024-01-18] MEDS: PROTEASE PO PRN (12:48)
[2024-01-18] MEDS: IBUPROFEN 400 MG TABLET (FP) PO PRN (21:31)
[2024-01-19 07:04] VITALS: RESP 16
[2024-01-20 06:39] VITALS: BP 107/67; PULSE 84; TEMP 98
[2024-01-20] MEDS ORDERED: traZODone HCL 50 MG TABLET (FP) PO SCH (22:00)
== END 2024-01-20 09:50 | disposition home or self-care (01) | DRG 772 ==
LOC: YASAS 13:10 → Y3W 13:12
PROVIDERS: ADMIT Allergy & Immunology; ATTEND Psychiatry & Neurology Pain Medicine
PROC: HZ42ZZZ Group Counseling for Substance Abuse Treatment, Cognitive-Behavioral (ICD-10-PCS; principal; 2023-12-23)
DX: F11.20 Opioid dependence, uncomplicated (principal); F10.20 Alcohol dependence, uncomplicated; F13.20 Sedative, hypnotic or anxiolytic dependence, uncomplicated; F14.20 Cocaine dependence, uncomplicated; F17.210 Nicotine dependence, cigarettes, uncomplicated; F19.982 Other psychoactive substance use, unspecified with psychoactive substance-induced sleep disorder; F90.9 Attention-deficit hyperactivity disorder, unspecified type; F19.980 Other psychoactive substance use, unspecified with psychoactive substance-induced anxiety disorder; F41.9 Anxiety disorder, unspecified; F32.A Depression, unspecified; F39 Unspecified mood [affective] disorder; K21.9 Gastro-esophageal reflux disease without esophagitis; G47.00 Insomnia, unspecified; K02.9 Dental caries, unspecified; K05.10 Chronic gingivitis, plaque induced; Z59.00 Homelessness unspecified
CPT/HCPCS: 0241U-QW; 36415; 80053; 82652; 83735; 84597; 85027; 85610

== ENCOUNTER 2024-02-16 18:35 | Emergency (ER) | payer OTHER ==
[2024-02-16 18:44] VITALS: BP 121/77; PULSE 103; RESP 18; TEMP 97.6; BMI 19.2
[2024-02-16] MEDS ORDERED: BUPRENORPHINE/NALOXONE 2 MG/0.5 MG FILM PACKET ONE (19:33)
[2024-02-16] MEDS ORDERED: PREGABALIN 100 MG CAPSULE ONE (19:33)
[2024-02-16] MEDS: BUPRENORPHINE/NALOXONE 4 MG/1 MG FILM PACKET SL ONE (19:37)
[2024-02-16] MEDS: PREGABALIN 100 MG CAPSULE PO ONE (19:37)
== END 2024-02-16 19:52 | disposition home or self-care (01) ==
LOC: JERFT 18:35
DX: Z76.0 Encounter for issue of repeat prescription (principal)
CPT/HCPCS: 99281-25

== ENCOUNTER 2024-02-18 19:33 | Emergency (ER) | payer OTHER ==
[2024-02-18 19:54] VITALS: BP 97/67; PULSE 101; RESP 18; TEMP 97.9; BMI 18.6
[2024-02-18] MEDS ORDERED: PREGABALIN 100 MG CAPSULE ONE (20:30)
[2024-02-18] MEDS ORDERED: BUPRENORPHINE/NALOXONE 8 MG/2 MG FILM PACKET ONE (20:30)
[2024-02-18] MEDS: BUPRENORPHINE/NALOXONE 8 MG/2 MG FILM PACKET SL ONE (20:35)
[2024-02-18] MEDS: PREGABALIN 100 MG CAPSULE PO ONE (20:35)
== END 2024-02-18 20:54 | disposition home or self-care (01) ==
LOC: JER 19:33 → JERFT 19:33
DX: F19.10 Other psychoactive substance abuse, uncomplicated (principal); Z76.0 Encounter for issue of repeat prescription
CPT/HCPCS: 99283-25

== ENCOUNTER 2024-05-10 22:11 | Inpatient (IN) | payer OTHER ==
[2024-05-10 22:32] VITALS: BMI 16.5
[2024-05-10] MEDS ORDERED: ALBUTEROL SO4 HFA INHALER IH PRN (23:05)
[2024-05-10] MEDS ORDERED: BENZONATATE 200 MG CAPSULE PO PRN (23:32)
[2024-05-10] MEDS ORDERED: MAG HYDROX/AL HYDROX/SIMETH 30 ML UNIT-DOSE CUP PO PRN (23:32)
[2024-05-10] MEDS ORDERED: guaiFENesin 600 MG TABLET.ER (FP) PO PRN (23:32)
[2024-05-10] MEDS ORDERED: IBUPROFEN 400 MG TABLET (FP) PO PRN (23:32)
[2024-05-10] MEDS ORDERED: NALOXONE (NARCAN) HCL 4 MG/0.1 ML SPRAY NS PRN (23:32)
[2024-05-10] MEDS ORDERED: MAGNESIUM HYDROX 2400MG/30ML ORAL SUSPENSION 30 ML CUP PO PRN (23:32)
[2024-05-10] MEDS ORDERED: DICYCLOMINE HCL 10 MG CAPSULE PO PRN (23:32)
[2024-05-10] MEDS ORDERED: NICOTINE POLACRILEX 2 MG GUM BUC PRN (23:32)
[2024-05-10] MEDS ORDERED: LOPERAMIDE HCL 2 MG CAPSULE PO PRN (23:32)
[2024-05-10] MEDS ORDERED: ACETAMINOPHEN 325 MG TABLET (FP) PO PRN (23:32)
[2024-05-10] MEDS ORDERED: BENZOCAINE/MENTHOL (CHLORASEPTIC ) LOZENGE MM PRN (23:32)
[2024-05-10] MEDS ORDERED: ONDANSETRON *ODT* 4 MG TABLET SL PRN (23:32)
[2024-05-10] MEDS ORDERED: IBUPROFEN 600 MG TABLET (FP) PO PRN (23:32)
[2024-05-10] MEDS ORDERED: BISMUTH SUBSALICYLATE 524 MG/30 ML PO PRN (23:32)
[2024-05-10] MEDS ORDERED: POLYETHYLENE GLYCOL (HEALTHYLAX) 3350 17 GM PACKET PO PRN (23:32)
[2024-05-10] MEDS ORDERED: NICOTINE POLACRILEX 2 MG LOZENGE BC PRN (23:32)
[2024-05-10] MEDS ORDERED: METHOCARBAMOL 500 MG TABLET PO PRN (23:32)
[2024-05-11] MEDS: GABAPENTIN 100 MG CAPSULE PO ONE (00:08)
[2024-05-11] MEDS: levETIRAcetam 500 MG TABLET (FP) PO SCH (00:08)
[2024-05-11] MEDS: hydrOXYzine PAMOATE 25 MG CAPSULE (FP) PO PRN (00:09)
[2024-05-11] MEDS: BUPRENORPHINE/NALOXONE 8 MG/2 MG FILM PACKET SL SCH (05:51)
[2024-05-11] MEDS ORDERED: LIPASE/PROTEASE/AMYLASE 36,000 UNIT CAPSULE PO SCH (08:00)
[2024-05-11] MEDS: LIPASE/PROTEASE/AMYLASE 36,000 UNIT CAPSULE PO SCH (08:52)
[2024-05-11] MEDS: TEZACAFTOR PO SCH ×2 (08:53→17:52)
[2024-05-11] MEDS: [UNRECOGNIZED DRUG - OTHER] PO SCH ×2 (08:53→17:52)
[2024-05-11] MEDS: IVACAFTOR PO SCH ×2 (08:53→17:52)
[2024-05-11] MEDS: ELEXACAFTOR PO SCH ×2 (08:53→17:52)
[2024-05-11] MEDS: PRENATAL VITAMINS W/ FOLIC ACID TABLET (FP) PO SCH (10:17)
[2024-05-11] MEDS: BUDESONIDE/FORMETEROL FUMARATE 160/4.5 mcg INHALER IH SCH (10:18)
[2024-05-11] MEDS: diazePAM 5 MG TABLET PO SCH (10:18)
[2024-05-11 11:20] LABS: HEMATOCRIT 42.2 % (35.4-49); HEMOGLOBIN 13.8 GM/dL (11.7-16.9); MCH 28.3 pg (25.7-33.7); MCHC 32.8 g/dl (32.0-35.9); MEAN CELL VOLUME 86.2 fl (80-96); MEAN PLT VOLUME 12.2 fl (7.5-11.1); PLATELET COUNT 74 10^3/uL (134-434); RDW 15.4 % (11.9-15.9); WHITE BLOOD COUNT 7.3 K/mm3 (4.0-10.0)
[2024-05-11 11:23] LABS: POTASSIUM 3.7 mmol/L (3.5-5.1)
[2024-05-11 11:28] LABS: ALBUMIN 3.2 g/dl (3.4-5.0)
[2024-05-11 11:29] LABS: BLOOD UREA NITROGEN 15.8 mg/dL (7-18); CALCIUM 8.6 mg/dL (8.5-10.1)
[2024-05-11 11:31] LABS: CREATININE 0.7 mg/dL (0.55-1.3)
[2024-05-11 11:33] LABS: BILIRUBIN,TOTAL 0.6 mg/dL (0.2-1); TOT PROT 6.1 g/dl (6.4-8.2)
[2024-05-11] MEDS: BUPRENORPHINE/NALOXONE 4 MG/1 MG FILM PACKET SL SCH (12:57)
[2024-05-11] MEDS: LIPASE/PROTEASE/AMYLASE 36,000 UNIT CAPSULE PO PRN (17:50)
[2024-05-11] MEDS ORDERED: QUEtiapine FUMARATE 100 MG TABLET (FP) PO SCH (22:00)
[2024-05-11] MEDS ORDERED: MELATONIN 5 MG TABLETS PO SCH (22:00)
[2024-05-11] MEDS: THIAMINE 100 MG TABLET PO SCH (22:39)
[2024-05-11] MEDS: traZODone HCL 50 MG TABLET (FP) PO SCH (22:39)
[2024-05-11] MEDS: busPIRone HCL 5 MG TABLET PO SCH (22:39)
[2024-05-11] MEDS: MELATONIN 5 MG TABLETS PO SCH (22:40)
[2024-05-12] MEDS: MIRTAZAPINE 15 MG TABLET (FP) PO ONE (01:25)
[2024-05-12] MEDS: diazePAM 5 MG TABLET PO PRN (20:01)
[2024-05-13] MEDS: diazePAM 5 MG TABLET PO SCH (05:35)
[2024-05-13] MEDS: PREGABALIN 50 MG CAPSULE PO SCH (14:15)
[2024-05-14] MEDS: diazePAM 5 MG TABLET PO SCH (06:03)
[2024-05-15] MEDS: diazePAM 5 MG TABLET PO ONE (05:19)
[2024-05-15] MEDS: NALOXONE (NYS OPIOID OVERDOSE PROGRAM) 4 MG/0.1 ML SPRAY NS SCH (08:25)
[2024-05-15 12:39] VITALS: BP 111/68; PULSE 88; RESP 17; TEMP 99.3
== END 2024-05-15 01:20 | disposition other institution (70) | DRG 773 ==
LOC: YASAS 22:11 → Y3N 05-11 02:01
PROVIDERS: ADMIT Allergy & Immunology; ATTEND Surgery
PROC: HZ2ZZZZ Detoxification Services for Substance Abuse Treatment (ICD-10-PCS; principal; 2024-05-11)
DX: F10.230 Alcohol dependence with withdrawal, uncomplicated (principal); F13.230 Sedative, hypnotic or anxiolytic dependence with withdrawal, uncomplicated; F11.20 Opioid dependence, uncomplicated; F14.20 Cocaine dependence, uncomplicated; F12.20 Cannabis dependence, uncomplicated; F17.210 Nicotine dependence, cigarettes, uncomplicated; F19.24 Other psychoactive substance dependence with psychoactive substance-induced mood disorder; F41.9 Anxiety disorder, unspecified; F90.1 Attention-deficit hyperactivity disorder, predominantly hyperactive type; E84.9 Cystic fibrosis, unspecified; G62.9 Polyneuropathy, unspecified; J45.909 Unspecified asthma, uncomplicated; K21.9 Gastro-esophageal reflux disease without esophagitis
CPT/HCPCS: 36415; 80053; 80305; 85027; 86780; 87811; G0480

== ENCOUNTER 2024-05-15 13:07 | Inpatient (IN) | payer OTHER ==
[2024-05-15] MEDS ORDERED: MAGNESIUM HYDROX 2400MG/30ML ORAL SUSPENSION 30 ML CUP PO PRN (14:20)
[2024-05-15] MEDS ORDERED: NALOXONE (NARCAN) HCL 4 MG/0.1 ML SPRAY NS PRN (14:20)
[2024-05-15] MEDS ORDERED: MAG HYDROX/AL HYDROX/SIMETH 30 ML UNIT-DOSE CUP PO PRN (14:20)
[2024-05-15] MEDS ORDERED: LOPERAMIDE HCL 2 MG CAPSULE PO PRN (14:20)
[2024-05-15] MEDS ORDERED: METHOCARBAMOL 500 MG TABLET PO PRN (14:20)
[2024-05-15] MEDS ORDERED: guaiFENesin 600 MG TABLET.ER (FP) PO PRN (14:20)
[2024-05-15] MEDS ORDERED: NICOTINE POLACRILEX 4 MG LOZENGE BC PRN (14:20)
[2024-05-15] MEDS ORDERED: BENZONATATE 200 MG CAPSULE PO PRN (14:20)
[2024-05-15] MEDS ORDERED: NALOXONE HCL 0.4 MG/ML VIAL IVPUSH PRN (14:20)
[2024-05-15] MEDS ORDERED: POLYETHYLENE GLYCOL (HEALTHYLAX) 3350 17 GM PACKET PO PRN (14:20)
[2024-05-15] MEDS: LIPASE/PROTEASE/AMYLASE 36,000 UNIT CAPSULE PO SCH (17:17)
[2024-05-15] MEDS: LIPASE/PROTEASE/AMYLASE 36,000 UNIT CAPSULE PO PRN (17:18)
[2024-05-15] MEDS: TEZACAFTOR PO SCH (17:20)
[2024-05-15] MEDS: [UNRECOGNIZED DRUG - OTHER] PO SCH (17:20)
[2024-05-15] MEDS: IVACAFTOR PO SCH (17:20)
[2024-05-15] MEDS: ELEXACAFTOR PO SCH (17:20)
[2024-05-15] MEDS ORDERED: LIPASE/PROTEASE/AMYLASE 36,000 UNIT CAPSULE PO SCH (17:30)
[2024-05-15] MEDS: BUPRENORPHINE/NALOXONE 8 MG/2 MG FILM PACKET SL SCH (17:41)
[2024-05-15] MEDS: busPIRone HCL 5 MG TABLET PO SCH (21:32)
[2024-05-15] MEDS: THIAMINE 100 MG TABLET PO SCH (21:32)
[2024-05-15] MEDS: levETIRAcetam 500 MG TABLET (FP) PO SCH (21:32)
[2024-05-15] MEDS: traZODone HCL 50 MG TABLET (FP) PO SCH (21:32)
[2024-05-15] MEDS: PREGABALIN 100 MG CAPSULE PO SCH (21:32)
[2024-05-15] MEDS: BUDESONIDE/FORMETEROL FUMARATE 160/4.5 mcg INHALER IH SCH (21:34)
[2024-05-15] MEDS: MELATONIN 5 MG TABLETS PO SCH (21:34)
[2024-05-16] MEDS: ELEXACAFTOR PO SCH (08:07)
[2024-05-16] MEDS: IVACAFTOR PO SCH (08:07)
[2024-05-16] MEDS: TEZACAFTOR PO SCH (08:07)
[2024-05-16] MEDS: [UNRECOGNIZED DRUG - OTHER] PO SCH (08:07)
[2024-05-16] MEDS: PRENATAL VITAMINS W/ FOLIC ACID TABLET (FP) PO SCH (10:20)
[2024-05-16] MEDS: NICOTINE 21 MG/24 HOURS TOPICAL PATCH TD SCH (10:20)
[2024-05-16] MEDS: LIPASE/PROTEASE/AMYLASE 36,000 UNIT CAPSULE PO SCH (11:35)
[2024-05-16] MEDS: BUPRENORPHINE/NALOXONE 4 MG/1 MG FILM PACKET SL SCH (11:35)
[2024-05-16] MEDS: MIRTAZAPINE 15 MG TABLET (FP) PO SCH (21:05)
[2024-05-18] MEDS: LIPASE/PROTEASE/AMYLASE 36,000 UNIT CAPSULE PO PRN (11:03)
[2024-05-18] MEDS: hydrOXYzine PAMOATE 25 MG CAPSULE (FP) PO PRN (21:23)
[2024-05-19] MEDS: LIPASE/PROTEASE/AMYLASE 36,000 UNIT CAPSULE PO SCH (12:03)
[2024-05-26] MEDS: PREGABALIN 50 MG CAPSULE PO SCH (06:58)
[2024-05-28] MEDS: IBUPROFEN 600 MG TABLET (FP) PO PRN (12:09)
[2024-05-28] MEDS: LIPASE/PROTEASE/AMYLASE 36,000 UNIT CAPSULE PO PRN (14:50)
[2024-05-29] MEDS: IBUPROFEN 400 MG TABLET (FP) PO PRN (13:59)
[2024-05-30] MEDS: NICOTINE POLACRILEX 4 MG GUM BUC PRN (21:57)
[2024-06-02] MEDS: PREGABALIN 75 MG CAPSULE PO SCH (22:00)
[2024-06-04] MEDS: CLINDAMYCIN PHOSPHATE 1% TOPICAL GEL 30 GM TUBE TP SCH (21:06)
[2024-06-05] MEDS: BENZOCAINE/MENTHOL (CHLORASEPTIC ) LOZENGE MM PRN (06:44)
[2024-06-05] MEDS: hydrOXYzine PAMOATE 50 MG CAPSULE (FP) PO PRN (15:39)
[2024-06-05] MEDS: ACETAMINOPHEN 325 MG TABLET (FP) PO PRN (22:14)
[2024-06-06] MEDS: PREGABALIN 75 MG CAPSULE PO SCH (15:03)
[2024-06-08] MEDS ORDERED: guaiFENesin 600 MG TABLET.ER (FP) PO PRN (08:32)
[2024-06-08] MEDS ORDERED: BENZONATATE 200 MG CAPSULE PO PRN ×2 (08:32→11:00)
[2024-06-08] MEDS ORDERED: OXYMETAZOLINE 0.05% NASAL SOLUTION 15 ML BOTTLE NS PRN (11:00)
[2024-06-08] MEDS ORDERED: CHLORHEXIDINE GLUCONATE 0.12% 15ML CUP MM PRN (11:05)
[2024-06-08] MEDS: AZITHROMYCIN 250 MG TABLET PO ONE (12:44)
[2024-06-09] MEDS: AZITHROMYCIN 250 MG TABLET PO SCH (09:13)
[2024-06-09] MEDS: METHOCARBAMOL 500 MG TABLET PO PRN (18:34)
[2024-06-11 21:06] VITALS: RESP 16
[2024-06-12 09:44] VITALS: BP 119/71; PULSE 79; TEMP 98.7
[2024-06-12] MEDS: NALOXONE (NYS OPIOID OVERDOSE PROGRAM) 4 MG/0.1 ML SPRAY NS SCH (11:30)
== END 2024-06-12 11:32 | disposition home or self-care (01) | DRG 772 ==
LOC: YASAS 13:07 → Y3E 13:08 → Y3NR 06-09 11:03
PROVIDERS: ADMIT Psychiatry & Neurology Pain Medicine; ATTEND Family Medicine Addiction Medicine
PROC: HZ42ZZZ Group Counseling for Substance Abuse Treatment, Cognitive-Behavioral (ICD-10-PCS; principal; 2024-05-15)
DX: F14.20 Cocaine dependence, uncomplicated (principal); F13.20 Sedative, hypnotic or anxiolytic dependence, uncomplicated; F11.20 Opioid dependence, uncomplicated; F10.20 Alcohol dependence, uncomplicated; F15.20 Other stimulant dependence, uncomplicated; F12.20 Cannabis dependence, uncomplicated; F17.210 Nicotine dependence, cigarettes, uncomplicated; F19.282 Other psychoactive substance dependence with psychoactive substance-induced sleep disorder; F19.24 Other psychoactive substance dependence with psychoactive substance-induced mood disorder; F41.1 Generalized anxiety disorder; F32.A Depression, unspecified; F90.9 Attention-deficit hyperactivity disorder, unspecified type; E84.9 Cystic fibrosis, unspecified; G40.909 Epilepsy, unspecified, not intractable, without status epilepticus; G47.00 Insomnia, unspecified; J10.1 Influenza due to other identified influenza virus with other respiratory manifestations; K86.89 Other specified diseases of pancreas; K21.9 Gastro-esophageal reflux disease without esophagitis; R63.4 Abnormal weight loss; Z68.1 Body mass index [BMI] 19.9 or less, adult
CPT/HCPCS: 0241U-QW